=== PATIENT | male | born 1955 | race Two or more races ===

== ENCOUNTER 2019-03-29 14:14 | Inpatient (IN) | payer OTHER, SELFPAY ==
[2019-03-29] VITALS (10 sets, daily range): BP systolic 115–149; BP diastolic 74–89; PULSE 64–76; RESP 16–18; TEMP 36.8–37.1; O2SAT 96–99; BMI 32.4
--- NOTE | 2019-03-29 14:21 | EKG12_ITS ---
Test Reason : AM Blood Pressure : / mmHG Vent. Rate : 066 BPM Atrial Rate : 066 BPM P-R Int : 180 ms QRS Dur : 080 ms QT Int : 410 ms P-R-T Axes : 023 047 089 degrees QTc Int : 429 ms Normal sinus rhythm T wave abnormality, consider lateral ischemia Abnormal ECG When compared with ECG of 30-MAR-2019 12:21, MANUAL COMPARISON REQUIRED, DATA IS UNCONFIRMED Confirmed by JONI MARIE, KAY ([id number]), editor map DENNY ROACH ([id number]) on 04/01/2019 2:12:36 PM Referred By: Shaneka Amin Confirmed By:KAY QUINONES MD
--- NOTE | 2019-03-29 14:59 | EKG12_ITS ---
Test Reason : Blood Pressure : / mmHG Vent. Rate : 061 BPM Atrial Rate : 061 BPM P-R Int : 186 ms QRS Dur : 082 ms QT Int : 418 ms P-R-T Axes : 059 054 094 degrees QTc Int : 420 ms Normal sinus rhythm Septal infarct , age undetermined T wave abnormality, consider lateral ischemia Abnormal ECG When compared with ECG of 30-MAR-2019 04:43, MANUAL COMPARISON REQUIRED, DATA IS UNCONFIRMED Confirmed by JONI MARIE, KAY ([id number]), scientific publications editor DENNY ROACH ([id number]) on 04/01/2019 2:13:28 PM Referred By: Shaneka Amin Confirmed By:KAY QUINONES MD
--- NOTE | 2019-03-29 15:26 | PCM.HP.STD ---
Problem List (1) HTN (hypertension) Status: Chronic (2) Abnormal EKG Status: Acute (3) Obesity (BMI 30.0-34.9) Status: Chronic (4) Diverticulosis Status: Chronic (5) Hypercalcemia Status: Acute (6) NSTEMI (non-ST elevated myocardial infarction) Status: Acute History of Present Illness Date of Admission: 03/29/19 Chief Complaint: chest pain brought on by exertion and relieved with rest The patient is a 63 year old M with a past medical history of hypertension, diverticulosis, borderline hyperlipidemia in the remote past and GERD who presented to the ED in [place] c/o 3 days of intermittent substernal CP that is brought on with exertion and usually relieved with rest. Last night he had CP while lying in bed and had to get up and go to the living room and sit in the recliner. It felt better after he got up and sat in the chair. This morning when he got up he had indigestion and still had chest discomfort. With exertion it was a 7 and currently at rest it waxes and wanes between 1 or 2 to 4. He gets indigestion a lot and has been taking up to 5-8 TUMS a day which he tells me relieves the pain. 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 He has been doing a lot of yard work including raking stones and mowing and pruning trees. Raking and mowing brings on the CP. He denies any radiation of the pain and also denies SOB or diaphoresis with the pain. Denies N/V but, had indigestion this AM. EKG in the ED at [place] showed NSR with possible hyperacute T waves in the septal and lateral leads. The troponin was elevated at 0.185. a D Dimer was elevated and he was told that it was normal. We do not have a printed report. Calcium was elevated at 11 and there was no albumin done. The BUN was 26 and the creat was 1.06. He received 1 dose of SL NTG and it gave him a GUPTA and then the CP got worse. He was transported to [facility] for NSTEMI and to be seen by cardiology. A repeat EKG showed mild ST elevation in I and AVLwith persistent peaked T waves in V leads. He describes his pain as a 2-3 at present. He was admitted to a monitored bed on PCU and consult was ordered with Dr. Henry. Past Medical History Past Medical History (Chronic Problems): Chronic Problems HTN (hypertension) (Chronic) Obesity (BMI 30.0-34.9) (Chronic) Diverticulosis (Chronic) Home Medications: Ambulatory Orders Medication Instructions Recorded Losartan Potassium 50 mg PO 03/29/19 Surgical History: - - surgery on his left ear when he was a child Psychiatric History: No pertinent psych hx Lives: Spouse/ Significant Other Smoking Status: Never smoker Tobacco Use: Non-smoker Alcohol: Occasional Drugs: None - *Family History Maternal History Items: Cancer - breast CA Paternal History Items: Cancer - prostate in his father, - - valvular heart disease, clots in his heart and clots that went to his legs Sibling History Items: - - he is an only child Review of Systems Constitutional: Denies: Chills, Fever, Weight Change HEENT: Reports: Head Aches - only after NTG at the ED. Denies: Sinus Congestion, Sinus Drainage Cardiovascular: Reports: Chest Pain, Chest Pressure. Denies: Claudication, Edema, Light Headedness, Orthopnea, Palpitations, Syncope Respiratory: Reports: Shortness of breath upon exertion. Denies: Cough, Hemoptysis, Pleuritic Pain, Sputum production, Wheezing Gastrointestinal: Reports: Nausea, - - frequent indigestion. Denies: Abdominal Pain, Vomiting Genitourinary: Reports: Hesitancy. Denies: Dysuria, Nocturia, Retention Musculoskeletal: Denies: Joint Pain, Joint Tenderness Skin: Denies: Rash, Wounds Neurological: Denies: Focal weakness, Numbness, Tingling, Seizures Psychiatric: Denies: Anxiety, Depression, Homicidal Ideations, Suicidal Ideations Hematologic/ Lymphatic: Denies: Easy Bruising, Easy Bleeding, Hx of blood clot VTE Information - Inpt Only VTE Present on Admission: No VTE Mechan Device Prophylaxis: SCD's, Knee High MALCOLM Hose VTE Pharm Prophylaxis ordered?: Yes Patient Problems: Active and Suspected Problems Abnormal EKG (Acute) Hypercalcemia (Acute) NSTEMI (non-ST elevated myocardial infarction) (Acute) - Physical Exam General: Alert, Oriented x3, Cooperative, No apparent distress, Well developed, Well nourished HEENT: Atraumatic, PERRLA, EOMI, Normocephalic Oral: No Gingival or Mucosal Lesions/ Ulcerations, Dry Mucosa Neck: Supple, No JVD, Negative Carotid Bruits, No Nodes, No Nuchal Rigidity, Trachea Midline Lungs: Clear to auscultation, Normal air movement, No rhonchi, No wheeze, No rales Cardiovascular: Regular rate, Regular Rhythm, Normal S1, Normal S2, No murmurs, No rub noted, No Gallop Abdomen: Bowel Sounds Present, Soft, Non Tender, Non-Distended Extremities: No clubbing, No cyanosis, No edema, Capillary Refill Less than 3 Seconds, No Calf Tenderness, Peripheral Pulses Normal Skin: No rashes, No breakdown Musculoskeletal: No Tenderness to Palpation of Joints or Extremities Neurological: Cranial nerves II-XII grossly intact, Neuro grossly intact Psych/Mental Status: Normal Affect, Appropriate Vital Signs Temp Pulse Resp BP Pulse Ox 98.3 F 65 18 149/83 H 97 03/29/19 14:28 03/29/19 14:56 03/29/19 14:28 03/29/19 14:28 03/29/19 14:28 Oxygen Delivery Method Room Air Weight: 177 lb 4.026 oz Body Mass Index (BMI) 32.4 Assessment/Plan All Active Problems Abnormal EKG (Acute) Hypercalcemia (Acute) NSTEMI (non-ST elevated myocardial infarction) (Acute) Impressions 1. NSTEMI 2. HTN 3. diverticulosis 4. frequent indigestion/GERD - takes PRN Prilosec 5. obesity 6. remote hx of borderline high cholesterol Admit to a monitored bed on PCU ASA 81 mg PO daily SL NTG 0.4 mg PRN chest pain Serial Cardiac Enzymes repeat EKG now Stat EKG PRN CP DVT prophylaxis ordered Brilinta 180 mg loading Start a beta samantha Lipitor 80 mg Q HS continue the losartan Consult Dr. Henry - discussed with him Lipid panel in the AM Code Visit Inpatient E&M: 34969 Init Hosp L3
[2019-03-29 16:01] LABS: Magnesium 2.1 mg/dL (1.6-2.6)
[2019-03-29 16:13] LABS: AST(SGOT) 32 U/L (15-37); Alanine Aminotransfer ALT/SGPT 42 U/L (16-61); Albumin, Serum 4.5 g/dL (3.2-5.0); Alkaline Phosphatase 72 U/L (45-117); Globulin 3.2 g/dL (2.2-4.2); Protein, Total 7.7 g/dL (6.4-8.2)
[2019-03-29 16:22] LABS: International Normalized Ratio 1.1; Partial Thromboplast Time 34.2 Seconds (24.1-36.2); Prothrombin Time (Protime)PT. 13.5 SECONDS (11.7-14.9)
[2019-03-29] MEDS: Atorvastatin Calcium 80 MG Tablet PO (17:11)
[2019-03-29] MEDS: 0.9% Normal Saline 1,000 ML 75 ML IV (17:11)
[2019-03-29] MEDS: Pantoprazole Sodium 40 MG Tablet PO ×2 (17:11→21:34)
[2019-03-29] MEDS: Metoprolol Tartrate 25 MG Tablet PO ×2 (17:11→21:34)
[2019-03-29] MEDS: TICAGRELOR 90 MG TABLET 180 MG PO (17:23)
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
[2019-03-29] MEDS: HEPARIN/D5w 25,000 UNITS 25,000 UNITS/250 ML IV.SOLN. 11 UNITS IV (18:00)
[2019-03-29] MEDS: TICAGRELOR 90 MG TABLET PO (21:34)
[2019-03-29] MEDS: Morphine 2 MG/ML Syringe IV (23:32)
--- NOTE | 2019-03-29 23:39 | EKG12_ITS ---
Test Reason : Blood Pressure : / mmHG Vent. Rate : 068 BPM Atrial Rate : 068 BPM P-R Int : 178 ms QRS Dur : 082 ms QT Int : 386 ms P-R-T Axes : 039 013 089 degrees QTc Int : 410 ms Normal sinus rhythm Nonspecific T wave abnormality Confirmed by BRAEDEN MARIE, JUAN ([id number]), research editor ROCIO TSANG ([id number] on 04/03/2019 1:11:17 PM Referred By: Shaneka Amin Confirmed By:JUAN DERAS MD
[2019-03-30] VITALS (24 sets, daily range): BP systolic 95–137; BP diastolic 51–81; PULSE 57–86; RESP 14–28; TEMP 36.9–37.1; O2SAT 95–99
[2019-03-30 00:20] LABS: Partial Thromboplast Time 64.8 Seconds (24.1-36.2)
[2019-03-30 05:20] LABS: Cholesterol 170 mg/dL (200); High Density Lipoprotein 46 mg/dL; Triglycerides 114 mg/dL; Very Low Density Lipoprotein 23 mg/dL (5-40)
[2019-03-30] MEDS: 0.9% Normal Saline 1,000 ML 75 ML IV (05:38)
[2019-03-30] MEDS: Morphine 2 MG/ML Syringe IV (05:42)
--- NOTE | 2019-03-30 05:55 | EKG12_ITS ---
Test Reason : AM Blood Pressure : / mmHG Vent. Rate : 063 BPM Atrial Rate : 063 BPM P-R Int : 174 ms QRS Dur : 078 ms QT Int : 390 ms P-R-T Axes : 017 024 075 degrees QTc Int : 399 ms Normal sinus rhythm Nonspecific T wave abnormality Confirmed by BRAEDEN MARIE, JUAN ([id number]), order editor ROCIO TSANG ([id number]) on 04/03/2019 1:10:21 PM Referred By: Shaneka Amin Confirmed By:JUAN DERAS MD
[2019-03-30 06:52] LABS: Partial Thromboplast Time 76.9 Seconds (24.1-36.2)
[2019-03-30] MEDS: Metoprolol Tartrate 25 MG Tablet PO ×2 (09:25→21:18)
[2019-03-30] MEDS: Aspirin E.C. 81 MG Tablet PO (09:25)
[2019-03-30] MEDS: TICAGRELOR 90 MG TABLET PO ×2 (09:26→21:19)
--- NOTE | 2019-03-30 09:37 | PCM.PN.CARD ---
Subjectve: The patient is awake and alert. He has had waxing and waning chest discomfort has radiated towards his epigastric area, left chest, and left scapular area. He has required morphine sulfate. He denies ongoing shortness of breath, nausea, or emesis. There is been no diaphoresis. There is been no near syncope or syncope. Objective: Vital Signs Temp Pulse Resp BP Pulse Ox 98.6 F 72 14 124/73 H 99 03/30/19 08:48 03/30/19 09:25 03/30/19 08:48 03/30/19 08:48 03/30/19 08:48 Oxygen Flow Rate (L/min) 2 Oxygen Delivery Method Nasal Cannula Weight: 177 lb 4.026 oz Body Mass Index (BMI) 32.4 Intake and Output for Last 24 Hours 03/28/19 03/29/19 03/30/19 23:59 23:59 23:59 Intake Total 1360 / 1360 699 / 699 Output Total 200 / 200 Balance 1360 / 1360 499 / 499 General: Awake, Alert, Oriented x 3, Cooperative, No Acute Distress HEENT: Atraumatic, Normocephalic, PERRL, EOMI, Sclera Non Icteric Oral: Moist Mucosa Neck: Supple, Good ROM, No JVD Lungs: Clear to auscultation Cardiovascular: Regular Rhythm, Normal S1, Normal S2 Vascular: No Carotid Bruits Abdomen: Bowel Sounds Present, Soft, Non Tender Extremities: No Cyanosis, No Clubbing, No edema Neurological: No Focal Motor or Sensory Deficit Psych/Mental Status: Appropriate 03/29/19 15:15: PT 13.5, INR 1.1, APTT 34.2 03/29/19 15:15: Total Bilirubin 0.50, Direct Bilirubin 0.10 03/29/19 15:15: Magnesium 2.1 03/29/19 15:15: Troponin I 0.392 H 03/29/19 19:33: Troponin I 3.600 H* 03/29/19 22:10: Troponin I 5.970 H* 03/29/19 23:54: APTT 64.8 H 03/30/19 01:27: Troponin I 8.680 H* 03/30/19 04:22: Triglycerides 114, Cholesterol 170, LDL Cholesterol 101, VLDL Cholesterol 23, HDL Cholesterol 46 03/30/19 04:22: Troponin I 11.400 H* 03/30/19 06:00: APTT 76.9 H 03/30/19 07:20: Troponin I 14.500 H* Rhythm: Sinus rhythm: PVCs EKG: Sinus rhythm; T wave [id number] Medical Necessity - Tobacco Use Smoking Status: Never smoker Tobacco Use: Non-smoker Assessment/Plan 1. Non-ST segment elevation NH The patient has chest discomfort. The concern based upon his cardiac enzyme changes and ECG changes as this may be related to underlying CAD and a subsequent non-ST segment elevation NH as he has not been felt to meet criteria for a STEMI. The patient has had symptoms which have been somewhat positional. This would raise a question of underlying pericarditis. However the current time the patient does not appear to have a classic recent clinical event that may proceed acute pericarditis. He also does not appear to have obvious findings on examination such as a pericardial rub. The patient has been evaluated at his local emergency department for concerns of thromboembolic disease with a chest CT scan. He stated it was reported as negative as he was not started on additional medical management at that time. The patient has been monitored. He has waxing and waning chest discomfort. He is required additional medical management with morphine sulfate. His troponin I levels have trended up. His previous ST segment changes appear to have returned towards baseline however he has developed T wave inversion in lead aVL. At the present time the patient will continue medical therapy. Based upon his ongoing clinical scenario he will proceed with diagnostic cardiac catheterization. The procedure risk were discussed with him and he is agreeable to this approach. 2. Hypertension The patient states he has been diagnosed with hypertension. He notes he has been on antihypertensive therapy. He believes his blood pressure has been under good control. 3. Diverticulosis The patient states he has had a history of diverticulosis and diverticulitis. He has been treated medically in the past. He states he was told at one point time he may need a surgical procedure. However he has postponed that indefinitely. Comment: The above has been discussed and reviewed with Dr. Amin. This note was generated with [employer] software. It may contain incorrect words, spelling, and punctuation that were not noted in checking the note before signing.
--- NOTE | 2019-03-30 11:51 | CASEMGMT ---
Insurance Review for In-Network facilities for MMO insurance if transfer is recommended: [facility], [facility], [facility], [facility]. For further questions, contact CM. Naun FLORESN RN CM
--- NOTE | 2019-03-30 12:16 | EKG12_ITS ---
Test Reason : Blood Pressure : / mmHG Vent. Rate : 062 BPM Atrial Rate : 062 BPM P-R Int : 144 ms QRS Dur : 082 ms QT Int : 376 ms P-R-T Axes : 018 004 052 degrees QTc Int : 381 ms Normal sinus rhythm Nonspecific ST segment abnormality Confirmed by BRAEDEN MARIE, JUAN ([id number]), market editor ROCIO TSANG ([id number]) on 04/03/2019 1:12:25 PM Referred By: Shaneka Amin Confirmed By:JUAN DERAS MD
--- NOTE | 2019-03-30 12:16 | CL.I_ITS ---
Patient Name: EDE DE LUNA Study Date: 03/30/2019 Performing: Shemar Griffith MD Ht: 62 inches 157 cm : 1955 Wt: 176.6 lbs 80 kg Age: 63 Gender: male BSA: 1.81 PROCEDURE(S) PERFORMED OF24-TCH W OR WO PTCA, SINGLE CORONARY ARTERY CLINICAL PROFILE AND CO-MORBIDITIES Patient presents with NSTEMI for urgent cardiac cath Indications: Worsening Angina, Suspected CAD, ACS > 24 hrs, Worsening Angina, Suspected CAD Heart Failure: None Stress/Imaging Stress/Image Study Performed: No Stress/Image Study Performed: No Angina Classification Anginal Classification w/in 2 Weeks: CCS IV CAD Presentations: Non-STEMI. Non-STEMI. Symptom onset Date/Time: 03/29/2019 Time Not Available Comorbidities/Risk Factors: Hypertension Dyslipidemia Family History of Premature CAD CONCLUSIONS Successful PTCA/BETTINA proximal DIAG#1 with a 2.25 x 16 Promus Synergy, post dilated proximally with a 2 .5 x 8 NC balloon; 100%-->0%, no dissection. Vessel was quite small. RECOMMENDATIONS Highly recommend quitting all tobacco products Follow up with primary activities counselor Risk factor modification ASA Indefinitley Plavix for at least 12 months Routine post interventional care Refer for Outpatient Cardiac Rehab Manual sheath removal per protocol Follow up with Dr. Henry Stress test in 4-6 weeks to eval proximal LAD. Successful Mynx closure of RFA. DESCRIPTION OF PROCEDURE The patient arrived to the procedure lab. The risks and benefits of the procedure as well as a full d escription of our services here and current unavailability of surgical backup were fully explained to the patient and/or their significant other prior to the catheterization. The Timeout was completed, verifying the correct patient and procedure. The patient's procedural site was prepped and draped in the usual fashion. Local anesthetic was given subcutaneously to right groin region with Lidocaine 2% Using a modified Seldinger technique,arterial access was obtained via the right femoral artery, a 4Fr sheath was inserted Left Coronary Artery selective angiography was performed in multiple views using a 4 Fr. JL5 catheter. Right Coronary Artery selective angiography was then performed in multiple vie ws using a 4 Fr. 3DRC catheter. Left Ventriculography was performed in BAUTISTA projection using a 4 Fr. P igtail catheter. LV to AO pullback pressures were then recorded.The images were reviewed and options discussed. A decision was then made to proceed with an Intervention, IVUS or other adjunc t procedure. Arterial sheath was exchanged for a 6 Fr Sheath. ebu 3.75 Guide catheter was inserted and engaged into the LCA. bmw Guide wire was advanced to the LAD. emerege 2.00 x 8 Balloon catheter was advanced across lesion in the first diagonal, proximal. PTCA balloon inflated at 6 atms for 8 secs. PTCA ball oon inflated at 6 atms for 8 secs. Angiogram performed post balloon dilatation. synergy 2.25 x 12 Victor Hugo g Eluting stent was advanced across the lesion in the first diagonal, proximal. Angiogram performed p re stent deployment. Drug Eluting stent was removed intact, failed to cross lesion synergy 2.25 x 16 Drug Eluting stent was advanced across the lesion in the first diagonal, proximal. Angiogram performe d pre stent deployment. nc emerge 2.5 x 8 Balloon catheter was inserted post stent. Angiogram perform ed post balloon dilatation. Contrast was injected through the sheath and the Right Iliac and Femoral artery were assessed for possible closure device. The arterial sheath was pulled and a Mynx closure device was deployed for hemostasis INTERVENTION INFORMATION LESION SITE: 1st Diagonal (Proximal) Lesion Complexity: High/C, lesion at bifurcation: No, thrombus present: Yes, lesion length: 16 mm, cu lprit lesion: Yes Pre Stenosis: 100 % Pre intervention AG flow: 0 PROCEDURE: Drug Eluting Stent with pre and post dilatation Post Stenosis: 0 % Post intervention AG flow: 3 Lesion Devices: Medtronic 6 Fr EBU3.75 100cm Guide Catheter Wilcox .014 BMW [place] Straight 190cm Chandler Sci EMERGE MR 2.00x08 BALLOON Chandler Sci Synergy MR BETTINA 2.25x12 Chandler Sci Synergy MR BETTINA 2.25x16 Chandler Sci NC EMERGE MR 2.50x08 BALLOON COMPLICATIONS No Complications PROCEDURE MEDICATIONS Versed 1 mg IV Oxygen: 2 L/min via nasal cannula Heparin 6000 unit(s) IV 03/30/2019 11:25:44 Nitro 200 mcg IC 03/30/2019 11:31:50 Nitro 200 mcg IC 03/30/2019 11:31:50 Nitro 200 mcg IC 03/30/2019 11:34:30 SUMMARY OF HEMODYNAMIC DATA Time AIR REST ECG 10:47:42 AO 136/79 (103) SA 10:57:35 LV 120/14, 18 11:05:26 LV 0/0, 8 11:05:33 LV 144/1, 31 11:07:05 LV 144/0, 31 11:07:12 LVp 141/0, 27 11:07:44 AOp 148/77 (107) 11:07:49 RM AIR REST 12:12:15 Signed By Shemar Griffith MD On 04/22/2019 12:37:04 Shemar Griffith MD
[2019-03-30] MEDS: 0.9% Normal Saline 1,000 ML 150 ML IV (13:15)
--- NOTE | 2019-03-30 13:51 | CL.D_ITS ---
Patient Name: EDE DE LUNA Study Date: 03/30/2019 Performing: Tevin Henry MD Ht: 62 inches 157 cm : 1955 Wt: 176.6 lbs 80 kg Age: 63 Gender: male BSA: 1.81 PROCEDURE(S) PERFORMED KW93-VTL/COR/LV AI49-HGV W OR WO PTCA, SINGLE CORONARY ARTERY CLINICAL PROFILE AND INDICATIONS Patient presents with NSTEMI for urgent cardiac cath Indications: Worsening Angina, Suspected CAD, ACS > 24 hrs, Worsening Angina, Suspected CAD Heart Failure: None Stress/Imaging Stress/Image Study Performed: No Stress/Image Study Performed: No Angina Classification Anginal Classification w/in 2 Weeks: CCS IV CAD Presentations: Non-STEMI. Non-STEMI. Symptom onset Date/Time: 03/29/2019 Time Not Available Comorbidities/Risk Factors: Hypertension Dyslipidemia Family History of Premature CAD CONCLUSIONS Elevated Left Ventricular End Diastolic Pressure LV regional wall motion abnormalities with overall preserved LV systolic function LVEF: by LV gram 55 % [place] Multivessel CAD RECOMMENDATIONS Risk factor modification Medical therapy Referred for immediate PCI DESCRIPTION OF PROCEDURE The patient arrived to the procedure lab. The risks and benefits of the procedure as well as a full d escription of our services here and current unavailability of surgical backup were fully explained to the patient and/or their significant other prior to the catheterization. The Timeout was completed, verifying the correct patient and procedure. The patient's procedural site was prepped and draped in the usual fashion. Local anesthetic was given subcutaneously to right groin region with Lidocaine 2%. Using a modified Seldinger technique, arterial access was obtained via the right femoral artery, a 4 Fr sheath was inserted Left Coronary Artery selective angiography was performed in multiple views us ing a 4 Fr. JL5 catheter. Right Coronary Artery selective angiography was then performed in multiple views using a 4 Fr. 3DRC catheter. Left Ventriculography was performed in BAUTISTA projection using a 4 Fr . Pigtail catheter. LV to AO pullback pressures were then recorded.Contrast was injected through the sheath and the Right Iliac and Femoral artery were assessed for possible closure device.T he arterial sheath was pulled and a Mynx closure device was deployed for hemostasis CORONARY ANGIOGRAPHY DOMINANCE: Co- Dominant LEFT HEART ASSESSMENT Left Ventricular Ejection Fraction: by Echo 55 % Anterior Hypokinesis Elevated Left Ventricular End Diastolic Pressure LVEDP: 31 mmHg LEFT MAIN: Angiographically normal LEFT ANTERIOR DESCENDING ARTERY: PROX LAD: 25 - 50 % Stenosis DIAGONAL 1: Proximal - is occluded DIAGONAL 2: Proximal - Small vessel: 25 % Stenosis CIRCUMFLEX ARTERY: Mild luminal irregularities RIGHT CORONARY ARTERY: Angiographically normal Angiographically normal VALVE FINDINGS: Normal Aortic Valve function Normal Mitral Valve function AORTIC ROOT: Angiographically normal COMPLICATIONS No Complications PROCEDURE MEDICATIONS Versed 1 mg IV Oxygen: 2 L/min via nasal cannula Heparin 6000 unit(s) IV 03/30/2019 11:25:44 Nitro 200 mcg IC 03/30/2019 11:31:50 Nitro 200 mcg IC 03/30/2019 11:31:50 Nitro 200 mcg IC 03/30/2019 11:34:30 SUMMARY OF HEMODYNAMIC DATA Time AIR REST ECG 10:47:42 AO 136/79 (103) SA 10:57:35 LV 120/14, 18 11:05:26 LV 0/0, 8 11:05:33 LV 144/1, 31 11:07:05 LV 144/0, 31 11:07:12 LVp 141/0, 27 11:07:44 AOp 148/77 (107) 11:07:49 RM AIR REST 12:12:15 Signed By Tevin Henry MD On 03/30/2019 13:51:11 Tevin Henry MD
[2019-03-30] MEDS: Pantoprazole Sodium 40 MG Tablet PO ×2 (14:05→22:10)
--- NOTE | 2019-03-30 14:56 | PCM.PROGNOTE ---
Patient Problems: Active and Suspected Problems Abnormal EKG (Acute) Hypercalcemia (Acute) NSTEMI (non-ST elevated myocardial infarction) (Acute) Subjective: 63-year-old male with hypertension who presented to [place] emergency department complaining of chest pain. Troponin was elevated and he was transferred [facility]. EKG showed subtle changes in the lateral and inferior leads. Troponin at [facility] sheryl to 14.5 in AM 03/30. 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 Cardiac catheterization today showed a left ventricular ejection fraction of 55% with an elevated and left ventricular diastolic pressure 31. The left main was angiographically normal. The proximal LAD had a 25 to 50% stenosis. Diagonal #1 was completely occluded and the proximal diagonal #2 had a 25% of stenosis. The RCA was angiographically normal and the circumflex artery had mild luminal irregularities. Patient was referred for intervention and had successful PTCA/BETTINA to the proximal diagonal #1 and occlusion went from 100% to 0% postprocedure. He was transferred to the coronary intensive care unit postprocedure. Currently he denies any chest pain and also denies shortness of breath. His only complaint is that he is hungry. Blood pressure is well controlled. Pulse ox is 98 to 99% on room air. Labs today showed an elevated troponin at 14.5. Cholesterol was 170 with an LDL of 101 and HDL of 46. - Physical Exam General: Alert, Cooperative, No apparent distress Lungs: Clear to auscultation, Normal air movement Cardiovascular: Regular rate, Regular Rhythm, Normal S1, Normal S2, No murmurs, No rub noted, No Gallop Abdomen: Bowel Sounds Present, Soft, Non Tender, Non-Distended Extremities: Peripheral Pulses Normal, - - Right groin site is dry with no hematoma and no bruit. Intact sensation to the right foot and dorsalis pedis pulses 3/3. Neurological: Cranial nerves II-XII grossly intact, Neuro grossly intact Psych/Mental Status: Normal Affect, Appropriate Vital Signs Temp Pulse Resp BP Pulse Ox 98.4 F 74 18 117/54 L 99 03/30/19 12:15 03/30/19 14:00 03/30/19 14:00 03/30/19 14:00 03/30/19 14:00 Oxygen Flow Rate (L/min) 2 Oxygen Delivery Method Room Air Weight: 177 lb 4.026 oz Body Mass Index (BMI) 32.4 Intake and Output for Last 24 Hours 03/28/19 03/29/19 03/30/19 23:59 23:59 23:59 Intake Total 1360 / 1360 949 / 949 Output Total 200 / 200 Balance 1360 / 1360 749 / 749 Laboratory Tests Past 24 Hrs 03/29/19 03/29/19 03/29/19 15:15 15:15 15:15 PT 13.5 INR 1.1 APTT 34.2 Magnesium 2.1 Total Bilirubin 0.50 Direct Bilirubin 0.10 AST 32 ALT 42 Alkaline Phosphatase 72 Troponin I Total Protein 7.7 Albumin 4.5 Globulin 3.2 Triglycerides Cholesterol LDL Cholesterol VLDL Cholesterol HDL Cholesterol PTH Intact 03/29/19 03/29/19 03/29/19 15:15 15:15 19:33 PT INR APTT Magnesium Total Bilirubin Direct Bilirubin AST ALT Alkaline Phosphatase Troponin I 0.392 H 3.600 H* Total Protein Albumin Globulin Triglycerides Cholesterol LDL Cholesterol VLDL Cholesterol HDL Cholesterol PTH Intact Pending 03/29/19 03/29/19 03/30/19 22:10 23:54 01:27 PT INR APTT 64.8 H Magnesium Total Bilirubin Direct Bilirubin AST ALT Alkaline Phosphatase Troponin I 5.970 H* 8.680 H* Total Protein Albumin Globulin Triglycerides Cholesterol LDL Cholesterol VLDL Cholesterol HDL Cholesterol PTH Intact 03/30/19 03/30/19 03/30/19 04:22 04:22 06:00 PT INR APTT 76.9 H Magnesium Total Bilirubin Direct Bilirubin AST ALT Alkaline Phosphatase Troponin I 11.400 H* Total Protein Albumin Globulin Triglycerides 114 Cholesterol 170 LDL Cholesterol 101 VLDL Cholesterol 23 HDL Cholesterol 46 PTH Intact 03/30/19 07:20 PT INR APTT Magnesium Total Bilirubin Direct Bilirubin AST ALT Alkaline Phosphatase Troponin I 14.500 H* Total Protein Albumin Globulin Triglycerides Cholesterol LDL Cholesterol VLDL Cholesterol HDL Cholesterol PTH Intact Medical Necessity - Tobacco Use Smoking Status: Never smoker Tobacco Use: Non-smoker Assessment/Plan All Active Problems Abnormal EKG (Acute) Hypercalcemia (Acute) NSTEMI (non-ST elevated myocardial infarction) (Acute) Impressions 1. NSTEMI 2. HTN 3. diverticulosis 4. frequent indigestion/GERD - takes PRN Prilosec 5. obesity 6. remote hx of borderline high cholesterol. LDL is 101 and he was started on a high intensity statin at admission 7. Multivessel coronary artery disease with a complete occlusion of the proximal diagonal #1. 8. Status post successful PTCA/BETTINA to the proximal diagonal #1 Transferred to cardiac intensive care unit Continue aspirin and Brilinta-we will need at least 12 months of dual antiplatelet therapy and then lifelong aspirin Continue beta-samantha, high intensity statin, ARB, aspirin and Brilinta Continue Protonix twice daily for GERD Recheck lab in the a.m. Echo in the a.m. Cardiac rehab Code Visit Inpatient E&M: 31666 Subs Hosp L2
[2019-03-30 15:35] LABS: ACT Activated Clotting Time 208 sec (74-137)
[2019-03-30 15:35] LABS: ACT Activated Clotting Time 131 sec (74-137)
[2019-03-30] MEDS: Atorvastatin Calcium 80 MG Tablet PO (21:18)
[2019-03-31] VITALS (15 sets, daily range): BP systolic 109–154; BP diastolic 46–83; PULSE 61–85; RESP 14–22; TEMP 36.7–38.1; O2SAT 97–99; BMI 32.3
[2019-03-31 04:23] LABS: Hematocrit 38.4 % (40-54); Hemoglobin 12.6 g/dl (13.0-16.5); Mean Corp Hgb Conc 32.8 g/gl (32-36); Mean Corpuscular Volume 88.5 fL (80-94); Mean Platelet Vol. 9.7 fl (6.2-12.0); Platelet Count 143 K/mm3 (150-450); RBC Distribution Width CV 13.2 % (11.6-14.6); RBC Distribution Width SD 41.8 fl (35.1-43.9); Red Blood Count 4.34 M/mm3 (4.6-6.2); Scan Indicated on CBC? Y/N NO; White Blood Count 9.6 K/mm3 (4.4-11.0)
[2019-03-31 04:33] LABS: Anion Gap 7 (5-15); BUN 21 mg/dL (7-18); BUN/Creat Ratio 23.3 RATIO (10-20); Chloride 108 mmol/L (98-107); EST Glomerular Filtration Rate 90 mL/min (>60); Est Glom Filt Rate - Afr Amer 108 mL/min (>60); Estimated Creatinine Clearance 63.19 ml/min; Glucose 96 mg/dL (74-106); Sodium Level 139 mmol/L (136-145)
[2019-03-31] MEDS: TICAGRELOR 90 MG TABLET PO (07:57)
[2019-03-31] MEDS: Metoprolol Tartrate 25 MG Tablet PO (07:57)
[2019-03-31] MEDS: Pantoprazole Sodium 40 MG Tablet PO (07:57)
[2019-03-31] MEDS: Losartan Potassium 25 MG Tablet PO (07:57)
[2019-03-31] MEDS: Aspirin E.C. 81 MG Tablet PO (07:57)
--- NOTE | 2019-03-31 08:31 | CRPHASE1_ITS ---
Patient Communication PHII Cardiac Rehab Discussed with Patient:: Yes Guide to Cardiac Rehab Given to Patient:: Yes Cardiac Rehab Facility Choice List Given to Patient:: Yes - chooses [facility] Choice Program [facility] CR PHII:: Communication Given to CR, Refer to [facility] Refer Phase II Cardiac Rehab:: Yes Sessions:: 36 sessions - 3 days/wk, 12 weeks Risk Factors/Lifestyle Smoking Status: Never smoker Hx Obesity: Yes Height: 1.57 m Weight:: 80.286 kg BMI: 32.3 Laboratory Values: Cardiac Rehab Phase I Labs Triglycerides 114 mg/dL (-199) 03/30/19 04:22 Cholesterol 170 mg/dL (200) 03/30/19 04:22 101 mg/dL (0-130) 03/30/19 04:22 46 mg/dL (40-) 03/30/19 04:22 Phase I Education Given On:: Donnel[place], Nutrition, Antiplatelet medication, CHF, Smoking cessation, Diabetes - Type I, Diabetes - Type II Knowledge of Condition:: Yes Hospital Course Presenting Symptoms:: CP Cardiac Cath Date:: 03/30/19 Medical/Surgical History Hypertension:: Yes Discharge/Home/Social Eval Discharge Disposition: Home Cardiac Rehabilitation Info Cardiac Rehabilitation Program Information: Cardiac Rehabilitation is important for patients like you who are recovering from a heart problem. Cardiac rehabilitation programs are recognized as integral to the continued care of the patient with coronary heart disease. The cardiac rehabilitation program is designed to optimize a patient's physical, psychological, and social functioning. Health care management coordinator work in cardiac rehabilitation programs and assist you with getting the treatments you need to get stronger and healthier - like exercise, healthy eating habits, and medications. Cardiac rehabilitation has been show to help people with heart problems live longer and have better life enjoyment than people who do not go to cardiac rehabilitation. Please contact the Cardiac Rehabilitation Program at [facility] at in two weeks if you have not heard from them.
--- NOTE | 2019-03-31 08:36 | CRPH1.INSTRU ---
General Education CAD and cardiac anatomy and function:: Patient communicates acknowledgment Explanation of diagnoses and procedures:: Patient communicates acknowledgment Sign/Symptoms of ND:: Patient communicates acknowledgment Antiplatelet therapy: Patient communicates acknowledgment Proper use of NTG-SL: Not instructed Emergency procedures and activation of EMS: Patient communicates acknowledgment Compliance of all prescribed medications: Patient communicates acknowledgment Smoking Patient Nicotine/Smoking Risk Factors Are:: Never smoked Dyslipidemia Dyslipidemia Response Code:: Patient communicates acknowledgment Overweight/Obesity Patient Overweight/Obesity Risk Factors Are:: Obesity - > or = 30 Recommendations Include:: Weight loss of 5-10%, Reduced calorie diet, Exercise 5-7 times/week Overweight/Obesity:: Patient communicates acknowledgment Hypertension Recommendations Include:: Maintain BP <130/85, DASH dietary guidelines, Decrease/maintain normal body weight, Moderation of ETOH Hypertension:: Patient communicates acknowledgment Heart Disease Heart Disease Response Code:: Patient communicates acknowledgment Diabetes Diabetes:: Patient communicates acknowledgment Metabolic Syndrome Metabolic Syndrome Response Code:: Patient communicates acknowledgment Sedentary Sedentary Response Code:: Patient communicates acknowledgment
[2019-03-31 09:50] LABS: PTHIN 14.8 pg/mL (18.4-80.1)
--- NOTE | 2019-03-31 09:59 | CASEMGMT ---
RN CM Assessment Presentation: NSTEMI. PTCA prox diag PTCA Intro role of CM and purpose of RN CM assessment. Demographics, PCP and Pharmacy verified. PCP: Dr. Peres Specialists: Dr. Henry Preferred Pharmacy: [facility] Insurance: MMO Prescription Benefit: yes. Brillinta savings card given to patient and explained. LNOK: , Christine Baldwin Living Arrangements: Lives independently with . No care needs identified Transportation: Drives DME: none HHC: none Patient DC goals: Home DC PLAN: Home on discharge. No needs identified. Trish CLOTH BIN PACKER ACM
--- NOTE | 2019-03-31 10:03 | PCM.PN.CARD ---
Subjectve: The patient is awake and alert. He denies any ongoing chest discomfort. There is been no episodes of shortness of breath or dyspnea. There is been no near syncope or syncope. He has been up and ambulating. Objective: Vital Signs Temp Pulse Resp BP Pulse Ox 98.0 F 78 20 H 150/69 H 99 03/31/19 08:00 03/31/19 08:00 03/31/19 08:00 03/31/19 08:00 03/31/19 08:00 Oxygen Flow Rate (L/min) 2 Oxygen Delivery Method Room Air Weight: 177 lb Body Mass Index (BMI) 32.4 Intake and Output for Last 24 Hours 03/29/19 03/30/19 03/31/19 23:59 23:59 23:59 Intake Total 1360 / 1360 3179 / 3179 Output Total 200 / 200 Balance 1360 / 1360 2979 / 2979 General: Awake, Alert, Oriented x 3, Cooperative, No Acute Distress HEENT: Atraumatic, Normocephalic, PERRL, EOMI, Sclera Non Icteric Oral: Moist Mucosa Neck: Supple, Good ROM, No JVD Lungs: Clear to auscultation Cardiovascular: Regular Rhythm, Normal S1, Normal S2 Vascular: No Carotid Bruits, Normal Femoral Pulses Abdomen: Bowel Sounds Present, Soft, Non Tender Extremities: No Cyanosis, No Clubbing, No edema Neurological: No Focal Motor or Sensory Deficit Psych/Mental Status: Appropriate 03/31/19 04:10: WBC 9.6, RBC 4.34 L, Hgb 12.6 L, Hct 38.4 L, MCV 88.5, MCH 29.0, MCHC 32.8, RDW 13.2, RDW Differential 41.8, Plt Count 143 L, MPV 9.7 03/31/19 04:10: Sodium 139, Potassium 4.0, Chloride 108 H, Carbon Dioxide 24.0, Anion Gap 7, BUN 21 H, Creatinine 0.90, Est GFR (MDRD) Af Amer 108, Est GFR (MDRD) Non-Af 90, BUN/Creatinine Ratio 23.3 H, Glucose 96, Calcium 8.0 L Rhythm: Sinus rhythm EKG: Sinus rhythm; T wave abnormality compatible with myocardial ischemia at these high/lateral) Medical Necessity - Tobacco Use Smoking Status: Never smoker Tobacco Use: Non-smoker Assessment/Plan 1. Non-ST segment elevation MS The patient is now status post further evaluation with diagnostic cardiac catheterization. The patient did require PCI of his high diagonal branch. The present time he appears to be resting comfortably with no ongoing symptoms or hemodynamic compromise. He will continue medical management. He will continue with outpatient follow-up and outpatient cardiac rehabilitation. 2. Hypertension The patient states he has been diagnosed with hypertension. He notes he has been on antihypertensive therapy. He believes his blood pressure has been under good control. 3. Diverticulosis The patient states he has had a history of diverticulosis and diverticulitis. He has been treated medically in the past. He states he was told at one point time he may need a surgical procedure. However he has postponed that indefinitely. Overall, the present time, the patient appears to be symptomatically hemodynamically stable. He will continue medication with adjustment as deemed appropriate. He will be scheduled for future outpatient cardiovascular follow-up and outpatient cardiac rehabilitation. Comment: The above has been discussed and reviewed with the patient. This note was generated with [employer] dictation software. It may contain incorrect words, spelling, and punctuation that were not noted in checking the note before signing.
--- NOTE | 2019-03-31 12:04 | PCM.DC ---
- Discharge Diagnoses Current Active Problems: Current Active and Chronic Problems (Last Updated 03/31/19 @ 08:38 by Lissy Brown) S/P coronary artery stent placement (Chronic ~03/30/19) PTCA/BETTINA to prox Diag #1 03/30/19 Atherosclerotic heart disease of [place] coronary artery without angina pectoris (Chronic) HTN (hypertension) (Chronic) Abnormal EKG (Acute) Obesity (BMI 30.0-34.9) (Chronic) Diverticulosis (Chronic) Hypercalcemia (Acute) NSTEMI (non-ST elevated myocardial infarction) (Acute) You will use the following diet at home:: Cardiac Your food should be the consistency of: Regular Return to work on:: 04/07/19 Call your doctor if you observe: Fever of 101 or Higher, Shortness of breath, Chest pain Allergies/Adverse Reactions: Allergies No Known Allergies Allergy (Verified 03/29/19 15:34) Medications to take at Discharge Aspirin E.C. [Ecotrin] 81 mg PO DAILY@0800 tab 03/31/19 Atorvastatin Calcium [Lipitor] 80 mg PO QHS #30 tab 03/31/19 Losartan Potassium [Cozaar] 25 mg PO DAILY #30 tab 03/31/19 Metoprolol Tartrate [Lopressor (beta samantha)] 50 mg PO BID #60 tab 03/31/19 Ticagrelor [Brilinta] 90 mg PO BID #60 tab 03/31/19 The following prescriptions were given: Ticagrelor [Brilinta] 90 mg PO BID #60 tab Transmission Status: Pending to [facility] Losartan Potassium [Cozaar] 25 mg PO DAILY #30 tab Transmission Status: Pending to [facility] Atorvastatin Calcium [Lipitor] 80 mg PO QHS #30 tab Transmission Status: Pending to [facility] Metoprolol Tartrate [Lopressor (beta samantha)] 50 mg PO BID #60 tab Transmission Status: Pending to [facility] Orders to be completed after discharge: Phase II, Outpatient Cardiac Rehab Location: None Selected Primary Care Physician: Álvaro Peres DO [Primary Care Provider] - Within 2 Weeks Test Results: Test results from this visit will be discussed in further detail at your follow-up appointment, if applicable. Please Follow Up With: Sanjay Lowry NP-C When: 04/23/19 Proposed Discharge Date: 03/31/19
--- NOTE | 2019-03-31 12:05 | DS.PCM_ITS ---
Discharge Date and Diagnosis - Problem List Patient Problems: Active and Suspected Problems (Last Updated 03/31/19 @ 08:38 by Lissy Brown) Abnormal EKG (Acute) Hypercalcemia (Acute) NSTEMI (non-ST elevated myocardial infarction) (Acute) Date of Admission: 03/29/19 Date of Discharge: 03/31/19 - Primary Discharge Diagnosis Active and Suspected Problems (Last Updated 03/31/19 @ 08:38 by Lissy Brown) Abnormal EKG (Acute) Hypercalcemia (Acute) NSTEMI (non-ST elevated myocardial infarction) (Acute) - Secondary Discharge Diagnosis Chronic Problems (Last Updated 03/31/19 @ 08:38 by Lissy Brown) S/P coronary artery stent placement (Chronic ~03/30/19) PTCA/BETTINA to prox Diag #1 03/30/19 Atherosclerotic heart disease of [place] coronary artery without angina pectoris (Chronic) HTN (hypertension) (Chronic) Obesity (BMI 30.0-34.9) (Chronic) Diverticulosis (Chronic) Hospital Course and Treatment Operations: None Procedures: Cardiac catheterization Summary of Care Provided: The patient is a 63 year old M who presents with chest pain with exertion. Patient had troponin elevation that went up to 14.5. Patient underwent a left heart catheterization on the seventh and received a drug-eluting stent to the diagonal artery. Afterwards, the patient has been doing fine. Cardiology is recommended patient be off of work for at least 1 week. Further prolongation of remaining off work will be determined by cardiology. Patient will be discharged with aspirin, Brilinta, atorvastatin, metoprolol and his losartan dose will be decreased from 50-25 daily. [] Patient Problems: Active and Suspected Problems (Last Updated 03/31/19 @ 08:38 by Lissy Brown) Abnormal EKG (Acute) Hypercalcemia (Acute) NSTEMI (non-ST elevated myocardial infarction) (Acute) - Physical Exam General: Alert, No apparent distress HEENT: Atraumatic, Normocephalic Neck: No Nodes, Thyroid Normal Size and Texture Lungs: Clear to auscultation, Normal air movement, No rhonchi, No wheeze, No rales Cardiovascular: Regular rate, Regular Rhythm, Normal S1, Normal S2, No murmurs Abdomen: Bowel Sounds Present, Soft, Non Tender, Non-Distended, No Hepato- splenomegaly Extremities: No edema, No Calf Tenderness Psych/Mental Status: Normal Affect, Appropriate Vital Signs Temp Pulse Resp BP Pulse Ox 36.7 C 76 18 154/83 H 98 03/31/19 08:00 03/31/19 10:00 03/31/19 10:00 03/31/19 10:00 03/31/19 10:00 Oxygen Flow Rate (L/min) 2 Oxygen Delivery Method Room Air Weight: 80.286 kg Body Mass Index (BMI) 32.4 Intake and Output for Last 24 Hours 03/29/19 03/30/19 03/31/19 23:59 23:59 23:59 Intake Total 1360 / 1360 3179 / 3179 Output Total 200 / 200 Balance 1360 / 1360 2979 / 2979 Laboratory Tests Past 24 Hrs 03/29/19 03/30/19 03/30/19 15:15 11:22 11:48 WBC RBC Hgb Hct MCV MCH MCHC RDW RDW Differential Plt Count MPV Activated Clotting Time 131 208 H Sodium Potassium Chloride Carbon Dioxide Anion Gap BUN Creatinine Estim Creat Clear Calc Est GFR (MDRD) Af Amer Est GFR (MDRD) Non-Af BUN/Creatinine Ratio Glucose Calcium PTH Intact 14.8 L 03/31/19 03/31/19 04:10 04:10 WBC 9.6 RBC 4.34 L Hgb 12.6 L Hct 38.4 L MCV 88.5 MCH 29.0 MCHC 32.8 RDW 13.2 RDW Differential 41.8 Plt Count 143 L MPV 9.7 Activated Clotting Time Sodium 139 Potassium 4.0 Chloride 108 H Carbon Dioxide 24.0 Anion Gap 7 BUN 21 H Creatinine 0.90 Estim Creat Clear Calc 63.19 Est GFR (MDRD) Af Amer 108 Est GFR (MDRD) Non-Af 90 BUN/Creatinine Ratio 23.3 H Glucose 96 Calcium 8.0 L PTH Intact Discharge Diet: Low fat/ Low Cholesterol Discharge Activity: Return to Normal Activity Return to work on:: 04/07/19 Call your doctor if you observe: Fever of 101 or Higher, Shortness of breath, Chest pain Home Medications: Medications to take at Discharge Aspirin E.C. [Ecotrin] 81 mg PO DAILY@0800 tab 03/31/19 Atorvastatin Calcium [Lipitor] 80 mg PO QHS #30 tab 03/31/19 Losartan Potassium [Cozaar] 25 mg PO DAILY #30 tab 03/31/19 Metoprolol Tartrate [Lopressor (beta gage)] 50 mg PO BID #60 tab 03/31/19 Ticagrelor [Brilinta] 90 mg PO BID #60 tab 03/31/19 Following Prescrptions Were Given to Patient: Ticagrelor [Brilinta] 90 mg PO BID #60 tab [facility] Losartan Potassium [Cozaar] 25 mg PO DAILY #30 tab Transmission Status[facility] Atorvastatin Calcium [Lipitor] 80 mg PO QHS #30 tab Transmission Status[facility] Metoprolol Tartrate [Lopressor (beta gage)] 50 mg PO BID #60 tab [facility]: [facility] Other Amb Orders: Phase II, Outpatient Cardiac Rehab Location: None Selected Primary Care Physician: Álvaro Peres DO [Primary Care Provider] - Within 2 Weeks Please Follow Up With: Sanjay Lowry KILN CHARGER-C When: 04/23/19 Disposition: Home Minutes spent on discharge:: 32 Patient Condition:: Good Medical Necessity - Tobacco Use Smoking Status: Never smoker Tobacco Use: Non-smoker Meaningful Use Info Meaningful Use Diagnoses (Choose all that apply): AMI - AMI Aspirin given w/in 24hrs of arrival?: Yes ASA at discharge?: Yes Statins at discharge?: Yes Omari/ARB at discharge?: Yes Beta Gage at discharge?: Yes Done w/ Acute VT measure.: Yes Documented LVEF (%): 55 Code Visit Inpatient E&M: 25942 Disch Hosp
--- NOTE | 2019-03-31 12:16 | EKG12_ITS ---
Test Reason : Blood Pressure : / mmHG Vent. Rate : 068 BPM Atrial Rate : 068 BPM P-R Int : 136 ms QRS Dur : 078 ms QT Int : 378 ms P-R-T Axes : 037 016 048 degrees QTc Int : 401 ms Normal sinus rhythm Nonspecific ST segment abnormality Confirmed by BRAEDEN MARIE, JUAN ([id number]), supervising editor news reel ROCIO TSANG ([id number]) on 04/03/2019 1:12:50 PM Referred By: Shaneka Amin Confirmed By:JUAN DERAS MD
== END 2019-03-31 12:56 | disposition home or self-care (01) | DRG 247 ==
LOC: PCU 15:12 → ICU 03-30 12:05
PROVIDERS: Internal Medicine Cardiovascular Disease; Admitting Provider Internal Medicine; Family Provider Family Medicine; PCP Family Medicine; Referring Provider Internal Medicine
DX: I21.4 Non-ST elevation (NSTEMI) myocardial infarction (principal); E66.9 Obesity, unspecified; Z68.32 Body mass index [BMI] 32.0-32.9, adult; K57.90 Diverticulosis of intestine, part unspecified, without perforation or abscess without bleeding; K21.9 Gastro-esophageal reflux disease without esophagitis; I10 Essential (primary) hypertension; I25.10 Atherosclerotic heart disease of native coronary artery without angina pectoris; E83.52 Hypercalcemia
CPT/HCPCS: 36415; 80048; 80061; 80076; 83735; 83970; 84484; 85027; 85347; 85610; 85730; 92928; 93005; 93458; 99152; 99153; 99406; C1760; J7030; J7040; C1725; C1769; C1874; C1887; C1894; C9600; Q9967

== ENCOUNTER → 2019-04-15 | Outpatient (CLI) | payer OTHER, SELFPAY ==
[2019-03-29 14:18] VITALS: BMI 32.4
--- NOTE | 2019-04-15 09:54 | CR.HP_ITS ---
CR - History & Physical - General Arrival date:: 04/15/19 Arrival time:: 09:00 Date of Referral:: 03/30/19 Date of CR Evaluation:: 04/15/19 Referring Physician: DR. JUAN DERAS Primary Diagnosis: NSTMEI, PTCA, PCI W/CORONARY STENT - History of Present Cardiac Event Onset Date: Enter Onset Date of cardiac illnesses in Comment field below Acute Myocardial Infarction within 12 months:: Yes - NON-STEMI 03/30/2019 PTCA or coronary stenting:: Yes - 03/30/2019 Type of Symptoms:: DONING ALOT OF HOME WORK AROUND HOME DURING VACATION, STARTED WITH CHEST PAIN WOULD STOP AND REST, THROUGHOUT THE WEEK AND WITH CHORES THE CHEST PAIN BECAME MORE PREVELANT AND FREQUENT. Interventions with present event:: ADMITTED OVERNIGHT AND TAKENT O SUSPENDER MAKER THE NEXT MORNING. TROPONINS KEPT R Were there any complications?: NONE - Medications Home Medications: Ambulatory Orders Medication Instructions Recorded Aspirin E.C. [Ecotrin] 81 mg PO DAILY@0800 tab 03/31/19 Atorvastatin Calcium [Lipitor] 80 mg PO QHS #30 tab 03/31/19 Losartan Potassium [Cozaar] 25 mg PO DAILY #30 tab 03/31/19 Metoprolol Tartrate [Lopressor 50 mg PO BID #60 tab 03/31/19 (beta samantha)] Ticagrelor [Brilinta] 90 mg PO BID #60 tab 03/31/19 - Allergies Allergies/Adverse Reactions: Allergies No Known Allergies Allergy (Verified 03/29/19 15:34) - Sleep Disorder Evaluation Hx of Sleep Apnea: No Do you snore loudly (louder than talking or can be heard through closed doors)?: Yes Do you often feel tired/ fatigued/ sleepy during daytime?: No - GETTING BETTER, BUT THE FIRST WEEK WAS REALLY TOUGH. Has anyone observed you stop breathing during sleep?: Yes - SUDDENLY WAKES UP THOUGH THE NIGHT; WAKE UP OUT OF SLEEP SHORT OF BREATH History of Hypertension (for STOP score): Yes - START ON BLOOP PRESSURE MEDICATIONS LAST FALL(2017). STOP Results: Positive Advanced Directives - Advanced Directives Power of Gun Barrel Finisher: Yes - (CARMEN) IS POA FOR HEALTHCARE Living Will: Yes Advance Directives Information Provided: No Advance Directives on File: No DNR Order?:: No - MOLST See MOLST form: No Past Medical History - Past Medical Illness Medical History: Past Medical History (Last Updated 04/15/19 @ 08:03 by HEIDY Fernandez) Essential (primary) hypertension (Chronic) I10 Atherosclerosis of [place] coronary artery of [place] heart without angina pectoris (Chronic) I25.10 PTCA/BETTINA to prox Diag #1 03/30/19; Obesity (BMI 30.0-34.9) (Chronic) E66.9 Diverticulosis (Chronic) K57.90 Hypercalcemia (Acute) E83.52 NSTEMI (non-ST elevated myocardial infarction) (Acute) I21.4 - Past Surgical History Surgical History: Past Surgical History (Last Updated 04/15/19 @ 08:03 by HEIDY Fernandez) S/P coronary artery stent placement (Chronic) Onset Date: ~03/30/19 Z95.5 PTCA/BETTINA to prox Diag #1 03/30/19; Surgical History: - - surgery on his left ear when he was a child Social History - Smoking History Smoking Status: Never smoker Hx Tobacco Use: No Hx Smoking Exposure: No - 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 Recreational Activities: I am able to engage in most, but not all activities Social Environment - Status Marital Status: - Current Living Arrangements Living Environment:: Spouse - Children How many children do you have?: 2 Do any of your children live nearby?: Yes - [facility] - Safety Do you feel safe in your surroundings?: Yes - Assistance Do you need any assistance at home?: NONE Review of Systems - Review of Systems Hints: Right click = Denies ([place]ash). Left click = Reports ([place]) Review of Present Symptoms: Reports: Shortness of Breath with Exertion, Dizziness/Lightheadedness - ALL IN ALL NO, ON OCCASIONA BENDING OVER AND STANDING UPRIGHT WILL FEEL A LITTLE DIZZINESS., Appetite - Normal, Appetite - Special Diet - DIVERTICULTIS, NO SEEDS, NO NUTS. LOW FAT LOW SODIUM CARDIAC DIET., Sleep - Normal. Denies: Angina, Fatigue, Heart Arrhythmia/Irregularities, Sexual Changes - Pain Is Patient Pain Free?: Yes Pain Location: none, other - PREVIOUS ROTATOR CUFF STRAIN WENT THROUGH PHYSICAL THERAPY FOR IT. Pain Level: 0/10 Risk Factor Assessment - Chief Complaint Chief Complaint: PATIENT PRESENTS TO CARDIAC REHAB TODAY FOLLOWING RECENT HOSPITALIZATION FOR CHEST PAIN, HE WAS NOT TOLD HE HAD A HEART ATTACK, BUT DID GO TO SUSPENDER MAKER FOR CATH PROCEDURE AND HAD A STENT PLACEMENT. - Vital Signs Temperature: 98.7 F Respiratory Rate: 16 Pulse Ox: 96 Blood Pressure: 154/83 Nailbeds:: NORMAL COLOR - Pulse Pulse Rate: 78 Pulse Rhythm: Regular - Hypertension How long have you been treated?: FALL 2017 Blood Pressure Sitting - Right Arm: 154/83 - Blood Cholesterol/Lipids Total Cholesterol (mg/dL) Goal = less than 200 mg/dL: 150 HDL Cholesterol (mg/dL) Goal = less than 40 mg/dL: 46 LDL Cholesterol (mg/dL) Goal = less than 70 mg/dL: 101 Triglycerides (mg/dL) Goal = less than 150 mg/dL: 114 - Diabetes Nutrition Referral for Diabetes: No - Obesity Height: 5 ft 2 in Weight:: 177 lb Weight in Pounds: 177.0 lbs Weight Source: Stated by Patient Body Mass Index (BMI): 32.3 Nutritional Referral for Obesity: Yes - Physical Inactivity Physical Inactivity: Reg Exercise 30 min/day - WALK 3/4 MILE DAILY ABOUT 45 MINUTES, Physically demanding job - Risk Stratification Risk Guidelines: Lowest Risk: Risk Factor for Smoking, Risk Factor for Diabetes, Risk Factor for Sedentary Lifestyle, Risk Factor for Depression, Moderate Risk: Risk Factor for Dyslipidemia, Risk Factor for Hypertension, Highest Risk: Risk Factor for Obesity - For Smoking Smoking Risk Guidelines: Smoking Low Risk: None or quit greater than 6 months ago. Smoking Moderate Risk: Smoker or quit 6 months or less ago. Smoking High Risk: Smoker - For Dyslipidemia Dyslipidemia Risk Guidelines: Low Risk: Moderate Risk: High Risk: 15-25% fat 25.1-29% fat >/= 30% fat. <7% sat fat 7-9% sat fat >9% sat fat. <150 mg chol 150-299 mg chol >/= 300 mg chol. LDL <100 LDL 100-129 LDL >/= 130. Chol/HDL ratio <5.0 Chol/HDL ratio 5.0-6.0 Chol/HDL ratio >6.0. Triglycerides <100 Triglycerides 100- 149 Triglycerides >/= 150 - For Diabetes Mellitus Diabetes Risk Guidelines: Diabetes Low Risk: HgA1c <6.5% and/or FBG <120. Diabetes Moderate Risk: HgA1c 6.6-7.9% and/or FBG 120-180. Diabetes High Risk: HgA1c >/= 8% and/or FBG >180 - For Obesity/Overweight Obesity/Overweight Risk Guidelines: Obesity Low Risk: BMI <25.0. Obesity Moderate Risk: BMI 25-29.9. Obesity High Risk: BMI >/= 30.0 - For Hypertension Hypertension Risk Guidelines: Hypertension Low Risk: Systolic <120 and Diastolic <80. Hypertension Moderate Risk: Systolic 120-139 and Diastolic 80-89. Hypertension High Risk: Systolic >/= 140 and Diastolic >/= 90 - For Sedentary Lifestyle Sedentary Lifestyle Risk Guidelines: Sedentary Lifestyle Low Risk: >/= 1,500 kcal/week. Sedentary Lifestyle Moderate Risk: 700-1,499 kcal/week. Sedentary Lifestyle High Risk: < 700 kcal/week - For Depression Depression Risk Guidelines: Depression Low Risk: Not clinically depressed. Depression Moderate Risk: Mildly depressed. Depression High Risk: Clinically depressed Motivation - Motivation to Participate On a scale of 1 to 10, how prepared are you to commit to attending program?: 10 What do you see as barriers to successfully being able to complete the program?: NONE What do you see as the benefits of succesfully completing the program? In other words, what do you hope to get out of participating in the program?: GETTING HEALTHIER, LEARNING HOW TO DEAL WIHT HEART DISEASE AND RECOVERY Are there issues you are dealing with that will interfere with completing the program?: NONE Do you have a spouse or signficant other, family or friends who will help support you to complete the program?: YES.
[2019-04-15 10:14] VITALS: BP 154/83; PULSE 78; RESP 16; TEMP 37.1; O2SAT 96; BMI 32.3
--- NOTE | 2019-04-15 10:55 | PCM.CR.ITP ---
General Information - General Information Admitting Diagnosis: NSTEMI, PCI W/CORONARY STENT - Education/Goals Barriers to Learning: Vision Impairment Individual Counseling: Initial Assessment: Abnormal Cholesterol Levels, High Blood Pressure, Overweight/Obesity Cardiac Rehabilitation Goals: 1. Maintain the individual as the primary focus of care. 2. To improve the patient's quality of life. 3. Identification of cardiac risk factors and provide cardiac risk factor management. 4. Enhance the psychosocial status of the patient. 5. Reconditioning enough to allow the patient to resume customary activities. 6. Control symptoms of cardiac disease Scale for measuring improvement of personal goals: Enter appropriate number in Comments. 2 = Unchanged. 3 = Slightly Better. 4 = Moderate Improvement. 5 = Met my Goal Personal Goals: Initial Assessment: Improve energy level, Participate in home exercise program, Get back to work, or to resume activities faster, Improve knowledge of cardiac disease, Improve muscle strength and endurance, Improve diet and eating habits (eat healthier), Control risk factors (learn risk factor modification) Exercise - Initial Assessment - Visit Date of Eval: 04/15/19 Session #:: 0 - START ON 04/21/2019 - Stages of Change Stages of Change:: Action - Physician Prescribed Exercise Modalities: Treadmill, Rower, Airdyne Frequency (days/week): 3x/week for 12 weeks [36 sessions] Duration (Minutes):: 30-45 Intensity: 60-80% age predicted maximum heart rate reserve METs - Progression: 0.5-1.0 MET, RPE 11-14 WEEK: 2.5 Target Heart Rate:: 101-132 - Hypertension Do any of the following apply?: Yes, Medication, Diet Resting Blood Pressure:: 154/82 - Intervention Home Exercise/Activity Goal:: Moderate Exercise 30 min/day x 5 days/wk - Education Goals:: Warm-up, RPE AMOS Scale, S/S, Safe Exercise, Self-Monitoring - Exercise Program Goals Exercise Program Goals: Aerobic Activity >30 min Nutrition - Initial Assessment - Program Goals Nutrition Program Goals: LDL <70. Total Cholesterol <200. HDL >45. Triglycerides <150. HgbA1C <7%. BMI <25 - Visit Date of Assessment:: 04/15/19 - Stages of Change Stages of Change:: Action - Lipids Total Cholesterol (mg/dL) Goal = less than 200 mg/dL: 150 HDL Cholesterol (mg/dL) Goal = less than 45 mg/dL: 46 LDL Cholesterol (mg/dL) Goal = less than 70 mg/dL: 101 Triglycerides (mg/dL) Goal = less than 150 mg/dL: 114 - Diabetes Diabetes:: No Do you monitor your blood sugar at home?: No - Weight Management Height: 5 ft 2 in Weight:: 177 lb Body Fat %:: 32.4 - STRUCTURED WEIGHT LOSS PROGRAM - Intervention Referral to dietitian:: Yes Referral to Diabetic Clinic:: No Will attend diet classes:: Yes - Education Gave educational materials for:: Healthy eating Tobacco - Initial Assessment - Program Goals Tobacco Program Goals: Complete smoking cessation. Attend education classes. 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 Do you use smokeless tobacco?: No - Intervention Smoking Cessation Referral:: No Individual Education/Counseling:: No Education Schedule Given:: Yes - Education Attended class for:: Treating Heart Disease, How The Heart Works, What it means to have Heart Disease, How Coronary Artery Disease is Diagnosed, Heart Procedures, What Heart Medications Do, Risk Factors & Modifications, Living an Active Life, Nutrition, Emotions & Heart Disease, Stress Management & Relaxation, Sleep Disorders & Heart Disease Psychosocial - Initial Assess - Target Goals Target Goals: Assess presence or absence of depression. Using a valid screening tool, maximizes coping skills. Positive support system - Stages of Change Stages of Change:: Action - Psychosocial Test Tool Used:: HANDS Depression Questionnaire - Intervention PS - Interventions: Yes Attend Stress Management Classes, No Referral to Mental Health, No Referral to [facility] Case Management, No Referral to Physician, No Uses Stress Management Skills - Education Gave educational materials for:: Coping techniques, Signs & symptoms of depression, Stress management, Relaxation techniques - Patient/Program Goal Preventative Medication(s):: Aspirin, Clopidogrel, Beta samantha, Statin/lipid - Assistive Devices Assistive Devices:: None Fall Risk Assessed:: Yes Patient Health Questionnaire Initial Assessment 1. Little interest or pleasure in doing things: Not at all 2. Feeling down, depressed, or hopeless: Not at all 3. Trouble falling or staying asleep, or sleeping too much: Several days 4. Feeling tired or having little energy: Several days 5. Poor appetite or overeating: Not at all 6. Feeling bad about yourself -- or that you are a failure or have let yourself or your family down: Not at all 7. Trouble concentrating on things, such as reading the newspaper or watching television: Not at all 8. Moving or speaking so slowly that other people could have noticed. Or the opposite - being so fidgety or restless that you have been moving around a lot more than usual: Not at all 9. Thoughts that you would be better off , or of hurting yourself in some way: Not at all How difficult have these problems made it for you to do your work, take care of things at home, or get along with other people?: Somewhat difficult Total Score: 2 NAS-Q SV Test - Statements CAD is a disease of the arteries in the heart: False Examples of risk factors for heart disease: True Angina is chest pain or discomfort: True The benefits of resistance training include: True Eating more meat and dairy products: False Anti-platelet medications such as aspirin are important: True The only effective way to manage stress: False An exercise warm-up slowly increases heart rate: True Prepared, processed foods usually have high sodium: True Depression is common after a heart attack: I Don't Know The statin medications lower cholesterol: I Don't Know To control blood pressure, lower the amount of sodium: True If someone gets chest discomfort during walking: False Transfats are partially hydrogenated vegetable oils: I Don't Know Sleep apnea that is not treated increases the risk: I Don't Know To control cholesterol, one should become a vegetarian: False Someone knows if he/she is exercising at the right level: True Diabetes cannot be prevented with exercise & health eating: False Stress is a large risk for heart attack: True A diet that can help lower blood pressure is rich in: True - Total Score Total Correct Responses: 16 Self-Efficacy Initial Assessment We would like to know how confident you are in doing certain activities. Please select your confidence level for:: Select your confidence level for the following using the scale 1-10 where 1 is not at all confident and 10 is totally confident. Your score is the average of all 6 responses. Fatigue: How confident are you that you can keep the fatigue caused by your disease from interfering with the things you want to do? Select Number: 5 Physical Discomfort or Pain: How confident are you that you can keep the physical discomfort or pain of your disease from interfering with the things you want to do? Select Number: 5 Emotional Distress: How confident are you that you can keep the emotional distress caused by your disease from interfering with the things you want to do? Select Number: 10 Other Symptoms or Health Problems: How confident are you that you can keep other symptoms or health problems from interfering with the things you want to do? Select Number: 6 Different Tasks and Activities: How confident are you that you can do the different tasks and activities needed to manage your health condition so as to reduce your need to see a doctor? Select Number: 7 Medication: How confident are you that you can do things other than just taking medication to reduce how much your illness affects your everyday life? Select Number: 8 Total Score:: 6 Nutrition Survey - Nutrition Survey Instructions Scoring Instructions: Scoring is as follows: Yes = 1 points. No = 0 point. Patient score that is >/=12 is considered to be at potential nutritional risk and could benefit from a referral to a registered dietitian. - Nutrition Survey Initial Have you lost >10 lbs over the past 2 months without trying?: No Are you following a special diet at home for diabetes, low fat, or low salt?: Yes Are you interested in meeting with a dietitian for help understanding your diet?: No Do you eat less than 3 meals a day?: Yes Do you eat fatty meats ([place], sausage, ribs, etc), fried foods, desserts, large amounts of salad dressings, margarine, butter, or cheese most days?: No Do you have food allergies? [Enter types in comment field]: No Do you eat in restaurants more than 3 times a week?: No Do you season food with salt, seasoning salt, or garlic salt?: No Do you used canned, boxed, frozen meals, or soups, seasoning packets?: No Total Score:: 2
[2019-04-15 11:04] VITALS: BP 154/82
== END | disposition home or self-care (01) ==
LOC: CR 08:53
PROVIDERS: Family Provider Family Medicine; PCP Family Medicine; Referring Provider Internal Medicine Cardiovascular Disease; Visit Provider Internal Medicine Cardiovascular Disease
DX: I21.4 Non-ST elevation (NSTEMI) myocardial infarction (principal); Z95.5 Presence of coronary angioplasty implant and graft

== ENCOUNTER 2019-04-23 09:15 | Outpatient (RCR) | payer OTHER, SELFPAY ==
[2019-04-15 10:14] VITALS: BMI 32.3
== END 2019-04-23 23:59 ==
LOC: CR 09:15
PROVIDERS: Family Provider Family Medicine; PCP Family Medicine; Referring Provider Internal Medicine Cardiovascular Disease; Visit Provider Internal Medicine Cardiovascular Disease
DX: I25.10 Atherosclerotic heart disease of native coronary artery without angina pectoris (principal); I10 Essential (primary) hypertension; Z95.5 Presence of coronary angioplasty implant and graft; I21.4 Non-ST elevation (NSTEMI) myocardial infarction
CPT/HCPCS: 93798

== ENCOUNTER → 2019-04-25 | Outpatient (CLI) | payer OTHER, SELFPAY ==
[2019-04-15 13:04] VITALS: BMI 31.6
[2019-04-25 11:23] LABS: PSA,Total- Diagnostic 4.03 ng/mL (0.0-4.0)
== END | disposition home or self-care (01) ==
LOC: LAB 10:00
PROVIDERS: Referring Provider Urology; Visit Provider Urology
DX: R97.20 Elevated prostate specific antigen [PSA] (principal)
CPT/HCPCS: 36415; 84153

== ENCOUNTER → 2019-05-08 | Outpatient (CLI) | payer OTHER, SELFPAY ==
[2019-05-06 11:37] VITALS: BMI 31.1
[2019-05-08 09:16] LABS: AST(SGOT) 45 U/L (15-37); Alanine Aminotransfer ALT/SGPT 54 U/L (16-61); Albumin, Serum 4.2 g/dL (3.2-5.0); Alkaline Phosphatase 85 U/L (45-117); Bilirubin, Direct 0.23 mg/dL (0.00-0.30); Cholesterol 89 mg/dL (200); Globulin 3.4 g/dL (2.2-4.2); High Density Lipoprotein 51 mg/dL; Protein, Total 7.6 g/dL (6.4-8.2); Triglycerides 57 mg/dL; Very Low Density Lipoprotein 11 mg/dL (5-40)
== END | disposition home or self-care (01) ==
LOC: LAB 08:32
PROVIDERS: Referring Provider Physician Assistant Medical; Visit Provider Physician Assistant Medical
DX: E78.00 Pure hypercholesterolemia, unspecified (principal)
CPT/HCPCS: 36415; 80061; 80076

== ENCOUNTER 2019-05-23 09:15 | Outpatient (RCR) | payer OTHER, SELFPAY ==
[2019-03-31 08:35] VITALS: BMI 32.3
[2019-04-15 13:04] VITALS: BMI 31.6
--- NOTE | 2019-05-14 11:56 | CR.ITP_ITS ---
Exercise - 30-day Assessment - Visit Date of Eval: 05/14/19 Session #:: 11 - Stages of Change Stages of Change:: Action - Physician Prescribed Exercise Modalities: Treadmill, Airdyne, NuStep Frequency (days/week): 3 Duration (Minutes):: 30-45 min Intensity: 60-80% age predicted maximum heart rate reserve METs - Progression: 0.5-1.0 MET, RPE 11-14 WEEK: 5.5 up from 3.0 Target Heart Rate:: 101-132 w/max hr 124 - Hypertension Resting Blood Pressure:: 106/62 Peak Exercise Blood Pressure:: 168/66 Medication Changes:: No - Intervention Home Exercise/Activity Goal:: Moderate Exercise 30 min/day x 5 days/wk - patient physically active daily > 30 minutes - Education Goals:: Warm-up, RPE AMOS Scale, S/S, Safe Exercise, Self-Monitoring - Exercise Program Goals Exercise Program Goals: Aerobic Activity >30 min Nutrition - Initial Assessment - Program Goals Nutrition Program Goals: LDL <70. Total Cholesterol <200. HDL >45. Triglycerides <150. HgbA1C <7%. BMI <25 - Diabetes Do you monitor your blood sugar at home?: No Nutrition - 30-Day Assessment - Program Goals Nutrition Program Goals: LDL <70. Total Cholesterol <200. HDL >45. Triglycerides <150. HgbA1C <7%. BMI <25 - Visit Date of Eval: 05/14/19 - Stages of Change Stages of Change:: Action - Lipids Has the patient seen the dietitian?: No - Diabetes Diabetes:: No Insulin: No - Weight Management Weight:: 167 lb 8 oz - Intervention Referral to dietitian:: No Referral to Diabetic Clinic:: No Will attend diet classes:: Yes - Education Attended class for:: Healthy eating Tobacco - Initial Assessment - Program Goals Tobacco Program Goals: Complete smoking cessation. Attend education classes. Improve Knowledge Test score - Learning Barriers Learning Barriers: Ready to Learn Tobacco - 30-Day Assessment - Program Goals Tobacco Program Goals: Complete smoking cessation. Attend education classes. Improve Knowledge Test score - Stage of Change Stages of Change:: Action - Learning Barriers Learning Barriers: Participates in education, Change in behavior - Family Support Do you have family support?: Yes - Tobacco Use Tobacco Use: Non-smoker Do you use smokeless tobacco?: No - Intervention Smoking Cessation Referral:: No Individual Education/Counseling:: No Education Schedule Given:: Yes - Education Attended class for:: Treating Heart Disease, How The Heart Works, What it means to have Heart Disease, How Coronary Artery Disease is Diagnosed, Heart Procedures, What Heart Medications Do, Risk Factors & Modifications, Living an Active Life, Nutrition, Emotions & Heart Disease, Stress Management & Relaxation, Sleep Disorders & Heart Disease Psychosocial - Initial Assess - Target Goals Target Goals: Assess presence or absence of depression. Using a valid screening tool, maximizes coping skills. Positive support system - Psychosocial Test Tool Used:: HANDS Depression Questionnaire - Assistive Devices Fall Risk Assessed:: Yes Psychosocial - 30-Day Assess - Target Goals Target Goals: Assess presence or absence of depression. Using a valid screening tool, maximizes coping skills. Positive support system - Stages of Change Stages of Change:: Action - Psychosocial Test Tool Used:: HANDS Depression Questionnaire - Intervention PS - Interventions: Yes Attend Stress Management Classes, Yes Uses Stress Management Skills, No Referral to Mental Health, No Referral to [facility] Case Management, No Referral to Physician - Education Attended classes for:: Coping techniques, Signs & symptoms of depression, Stress management, Relaxation techniques - Patient/Program Goal Preventative Medication(s):: Aspirin - patient compliant with medications, DEVORAH inhibitor, Clopidogrel, Beta samantha, Statin/lipid - Assistive Devices Assistive Devices:: None Fall Risk Assessed:: Yes Patient Health Questionnaire 30-Day Re-eval Assessment 1. Little interest or pleasure in doing things: Not at all 2. Feeling down, depressed, or hopeless: Not at all 3. Trouble falling or staying asleep, or sleeping too much: Several days 4. Feeling tired or having little energy: Not at all 5. Poor appetite or overeating: Not at all 6. Feeling bad about yourself -- or that you are a failure or have let yourself or your family down: Not at all 7. Trouble concentrating on things, such as reading the newspaper or watching television: Not at all 8. Moving or speaking so slowly that other people could have noticed. Or the opposite - being so fidgety or restless that you have been moving around a lot more than usual: Not at all 9. Thoughts that you would be better off , or of hurting yourself in some way: Not at all How difficult have these problems made it for you to do your work, take care of things at home, or get along with other people?: Not difficult at all Total Score: 1 Self-Efficacy 30-Day Re-eval Assessment We would like to know how confident you are in doing certain activities. Please select your confidence level for:: Select your confidence level for the following using the scale 1-10 where 1 is not at all confident and 10 is totally confident. Your score is the average of all 6 responses. Fatigue: How confident are you that you can keep the fatigue caused by your disease from interfering with the things you want to do? Select Number: 7 Physical Discomfort or Pain: How confident are you that you can keep the physical discomfort or pain of your disease from interfering with the things you want to do? Select Number: 7 Emotional Distress: How confident are you that you can keep the emotional distress caused by your disease from interfering with the things you want to do? Select Number: 10 Other Symptoms or Health Problems: How confident are you that you can keep other symptoms or health problems from interfering with the things you want to do? Select Number: 7 Different Tasks and Activities: How confident are you that you can do the diffe rent tasks and activities needed to manage your health condition so as to reduce your need to see a doctor? Select Number: 8 Medication: How confident are you that you can do things other than just taking medication to reduce how much your illness affects your everyday life? Select Number: 9 Total Score:: 8
[2019-05-14 12:00] VITALS: BP 106/62; BP 168/66
== END 2019-05-24 23:59 ==
LOC: CR 09:15
PROVIDERS: Family Provider Family Medicine; PCP Family Medicine; Referring Provider Internal Medicine Cardiovascular Disease; Visit Provider Internal Medicine Cardiovascular Disease
DX: I25.10 Atherosclerotic heart disease of native coronary artery without angina pectoris (principal); I10 Essential (primary) hypertension; E78.5 Hyperlipidemia, unspecified; Z95.5 Presence of coronary angioplasty implant and graft
CPT/HCPCS: 93798

== ENCOUNTER 2019-06-23 09:15 | Outpatient (RCR) | payer OTHER, SELFPAY ==
[2019-03-31 08:35] VITALS: BMI 32.3
[2019-05-06 11:37] VITALS: BMI 31.1
[2019-05-25 01:03] VITALS: BP 106/62; BP 168/66
--- NOTE | 2019-06-13 07:24 | CR.ITP_ITS ---
General Information - General Information Admitting Diagnosis: PCI WITH CORONARY STENT - Education/Goals Barriers to Learning: None Cardiac Rehabilitation Goals: 1. Maintain the individual as the primary focus of care. 2. To improve the patient's quality of life. 3. Identification of cardiac risk factors and provide cardiac risk factor management. 4. Enhance the psychosocial status of the patient. 5. Reconditioning enough to allow the patient to resume customary activities. 6. Control symptoms of cardiac disease Scale for measuring improvement of personal goals: Enter appropriate number in Comments. 2 = Unchanged. 3 = Slightly Better. 4 = Moderate Improvement. 5 = Met my Goal Exercise - 60-Day Assessment - Visit Date of Eval: 06/13/19 Session #:: 22 - Stages of Change Stages of Change:: Action - Physician Prescribed Exercise Modalities: Treadmill, Rower, Airdyne Frequency (days/week): 3 Duration (Minutes):: 30-45. Intensity: 60-80% age predicted maximum heart rate reserve METs - Progression: 0.5-1.0 MET, RPE 11-14 WEEK: 7 Target Heart Rate:: 101-132 MAX HR 133 - Hypertension Resting Blood Pressure:: 110/60 Peak Exercise Blood Pressure:: 170/62 - Intervention Home Exercise/Activity Goal:: Sitting Time <3 hrs/day - Education Goals:: Warm-up, RPE AMOS Scale, S/S, Safe Exercise, Self-Monitoring - Exercise Program Goals Exercise Program Goals: Aerobic Activity >30 min, B/P <130/80 Nutrition - Initial Assessment - Program Goals Nutrition Program Goals: LDL <70. Total Cholesterol <200. HDL >45. Triglycerides <150. HgbA1C <7%. BMI <25 - Diabetes Do you monitor your blood sugar at home?: No Nutrition - 60-Day Assessment - Program Goals Nutrition Program Goals: LDL <70. Total Cholesterol <200. HDL >45. Triglycerides <150. HgbA1C <7%. BMI <25 - Visit Date of Eval: 06/13/19 - Stages of Change Stages of Change:: Action - Lipids Has the patient seen the dietitian?: No - Diabetes Diabetes:: No - Weight Management Weight:: 75.977 kg - Intervention Referral to dietitian:: Yes - PT DECLINED Referral to Diabetic Clinic:: No Will attend diet classes:: Yes - Education Attended class for:: Signs & symptoms of hypoglycemia, Signs & symptoms of hyperglycemia, Relate diabetes to coronary artery disease, Healthy eating Tobacco - Initial Assessment - Program Goals Tobacco Program Goals: Complete smoking cessation. Attend education classes. Improve Knowledge Test score - Learning Barriers Learning Barriers: Ready to Learn Tobacco - 60-Day Assessment - Program Goals Tobacco Program Goals: Complete smoking cessation. Attend education classes. Improve Knowledge Test score - Stage of Change Stages of Change:: Action - Learning Barriers Learning Barriers: Participates in education - Family Support Do you have family support?: Yes - Tobacco Use Tobacco Use: Non-smoker Do you use smokeless tobacco?: No - Intervention Smoking Cessation Referral:: No Individual Education/Counseling:: No Education Schedule Given:: Yes - Education Attended class for:: Treating Heart Disease, How The Heart Works, What it means to have Heart Disease, How Coronary Artery Disease is Diagnosed, Heart Procedures, What Heart Medications Do, Risk Factors & Modifications, Living an Active Life, Nutrition, Emotions & Heart Disease, Stress Management & Relaxation, Sleep Disorders & Heart Disease Psychosocial - Initial Assess - Target Goals Target Goals: Assess presence or absence of depression. Using a valid screening tool, maximizes coping skills. Positive support system - Psychosocial Test Tool Used:: HANDS Depression Questionnaire - Assistive Devices Fall Risk Assessed:: Yes Psychosocial - 60-Day Assess - Target Goals Target Goals: Assess presence or absence of depression. Using a valid screening tool, maximizes coping skills. Positive support system - Stages of Change Stages of Change:: Action - Psychosocial Test Tool Used:: HANDS Depression Questionnaire - Intervention PS - Interventions: Yes Attend Stress Management Classes, Yes Uses Stress Management Skills, No Referral to Mental Health, No Referral to [facility] Diego ellis, No Referral to Physician - Education Attended classes for:: Coping techniques, Signs & symptoms of depression, Stress management, Relaxation techniques - Assistive Devices Assistive Devices:: None Fall Risk Assessed:: Yes Patient Health Questionnaire 60-Day Re-eval Assessment 1. Little interest or pleasure in doing things: Not at all 2. Feeling down, depressed, or hopeless: Not at all 3. Trouble falling or staying asleep, or sleeping too much: Several days 4. Feeling tired or having little energy: Not at all 5. Poor appetite or overeating: Not at all 6. Feeling bad about yourself -- or that you are a failure or have let yourself or your family down: Not at all 7. Trouble concentrating on things, such as reading the newspaper or watching television: Not at all 8. Moving or speaking so slowly that other people could have noticed. Or the opposite - being so fidgety or restless that you have been moving around a lot more than usual: Not at all 9. Thoughts that you would be better off , or of hurting yourself in some way: Not at all How difficult have these problems made it for you to do your work, take care of things at home, or get along with other people?: Not difficult at all Total Score: 1 Self-Efficacy 60-Day Re-eval Assessment We would like to know how confident you are in doing certain activities. Please select your confidence level for:: Select your confidence level for the following using the scale 1-10 where 1 is not at all confident and 10 is totally confident. Your score is the average of all 6 responses. Fatigue: How confident are you that you can keep the fatigue caused by your disease from interfering with the things you want to do? Select Number: 7 Physical Discomfort or Pain: How confident are you that you can keep the physical discomfort or pain of your disease from interfering with the things you want to do? Select Number: 7 Emotional Distress: How confident are you that you can keep the emotional distress caused by your disease from interfering with the things you want to do? Select Number: 10 Other Symptoms or Health Problems: How confident are you that you can keep other symptoms or health problems from interfering with the things you want to do? Select Number: 7 Different Tasks and Activities: How confident are you that you can do the different tasks and activities needed to manage your health condition so as to reduce your need to see a doctor? Select Number: 8 Medication: How confident are you that you can do things other than just taking medication to reduce how much your illness affects your everyday life? Select Number: 9 Total Score:: 8
[2019-06-13 07:31] VITALS: BP 110/60; BP 170/62
== END 2019-06-23 23:59 ==
LOC: CR 09:15
PROVIDERS: Referring Provider Internal Medicine Cardiovascular Disease; Visit Provider Internal Medicine Cardiovascular Disease
DX: I25.10 Atherosclerotic heart disease of native coronary artery without angina pectoris (principal); I25.2 Old myocardial infarction; I10 Essential (primary) hypertension; Z95.5 Presence of coronary angioplasty implant and graft
CPT/HCPCS: 93798

== ENCOUNTER 2019-07-14 13:00 | Outpatient (RCR) | payer OTHER, SELFPAY ==
[2019-03-31 08:35] VITALS: BMI 32.3
[2019-05-06 11:37] VITALS: BMI 31.1
[2019-06-24 00:56] VITALS: BP 110/60; BP 170/62
--- NOTE | 2019-07-11 08:52 | PCM.CR.ITP ---
Exercise - Final/Discharge - Visit Date of Eval: 07/11/19 Session #:: 34 - Stages of Change Stages of Change:: Action - Physician Prescribed Exercise Modalities: Treadmill, Rower, Airdyne, NuStep Frequency (days/week): 3 Duration (Minutes):: 30-45 Intensity: 60-80% age predicted maximum heart rate reserve METs - Progression: 0.5-1.0 MET, RPE 11-14 WEEK: 7.5 increased overall form initial 3 MET Target Heart Rate:: 101-132 w/max HR 123 - Hypertension Do any of the following apply?: Yes Resting Blood Pressure:: 98/62 Peak Exercise Blood Pressure:: 160/66 - Intervention Home Exercise/Activity Goal:: Moderate Exercise 30 min/day x 5 days/wk - Education Goal Progress: Goal Met - Exercise Program Goals Exercise Program Goals: Aerobic Activity >30 min Nutrition - Initial Assessment - Program Goals Nutrition Program Goals: LDL <70. Total Cholesterol <200. HDL >45. Triglycerides <150. HgbA1C <7%. BMI <25 - Diabetes Do you monitor your blood sugar at home?: No Nutrition - Final Assessment - Program Goals Nutrition Program Goals: LDL <70. Total Cholesterol <200. HDL >45. Triglycerides <150. HgbA1C <7%. BMI <25 - Visit Date of Eval: 07/11/19 - Stages of Change Stages of Change:: Action - Diabetes Diabetes:: No Insulin: No Non-Insulin Dependent?: No - Weight Management Height: 5 ft 2 in Weight:: 165 lb 8 oz - down form initial weight of 177 - Intervention Referral to dietitian:: No Referral to Diabetic Clinic:: No Will attend diet classes:: Yes - Education Education Goal Reached?: Yes Tobacco - Initial Assessment - Program Goals Tobacco Program Goals: Complete smoking cessation. Attend education classes. Improve Knowledge Test score - Learning Barriers Learning Barriers: Ready to Learn Tobacco - Final Assessment - Program Goals Tobacco Program Goals: Complete smoking cessation. Attend education classes. Improve Knowledge Test score - Stage of Change Stages of Change:: Action - Learning Barriers Cardiac Knowledge Test Score:: 20 - Family Support Do you have family support?: Yes - Tobacco Use Tobacco Use: Non-smoker Do you use smokeless tobacco?: No - Intervention Smoking Cessation Referral:: No Individual Education/Counseling:: No Education Schedule Given:: Yes - Education Education Goal Reached?: Yes Psychosocial - Initial Assess - Target Goals Target Goals: Assess presence or absence of depression. Using a valid screening tool, maximizes coping skills. Positive support system - Psychosocial Test Tool Used:: HANDS Depression Questionnaire - Assistive Devices Fall Risk Assessed:: Yes Psychosocial - Final Assessmen - Target Goals Target Goals: Assess presence or absence of depression. Using a valid screening tool, maximizes coping skills. Positive support system - Stages of Change Stages of Change:: Action - Psychosocial Test Tool Used:: HANDS Depression Questionnaire - Intervention PS - Interventions: Yes Attend Stress Management Classes, Yes Uses Stress Management Skills, No Referral to Mental Health, No Referral to [facility] Case Management, No Referral to Physician - Education Education Goal Reached?: Yes - Patient/Program Goal Preventative Medication(s):: Aspirin, DEVORAH inhibitor, Clopidogrel, Beta samantha, Statin/lipid - patinet compliant with medications - Assistive Devices Assistive Devices:: None Fall Risk Assessed:: Yes Patient Health Questionnaire Discharge Assessment 1. Little interest or pleasure in doing things: Not at all 2. Feeling down, depressed, or hopeless: Not at all 3. Trouble falling or staying asleep, or sleeping too much: Not at all 4. Feeling tired or having little energy: Not at all 5. Poor appetite or overeating: Not at all 6. Feeling bad about yourself -- or that you are a failure or have let yourself or your family down: Not at all 7. Trouble concentrating on things, such as reading the newspaper or watching television: Not at all 8. Moving or speaking so slowly that other people could have noticed. Or the opposite - being so fidgety or restless that you have been moving around a lot more than usual: Not at all 9. Thoughts that you would be better off , or of hurting yourself in some way: Not at all Total Score: 0 NAS-Q SV Test - Statements CAD is a disease of the arteries in the heart: False Examples of risk factors for heart disease: True Angina is chest pain or discomfort: True The benefits of resistance training include: True Eating more meat and dairy products: False Anti-platelet medications such as aspirin are important: True The only effective way to manage stress: False An exercise warm-up slowly increases heart rate: True Prepared, processed foods usually have high sodium: True Depression is common after a heart attack: True The statin medications lower cholesterol: True To control blood pressure, lower the amount of sodium: True If someone gets chest discomfort during walking: False Transfats are partially hydrogenated vegetable oils: True Sleep apnea that is not treated increases the risk: False To control cholesterol, one should become a vegetarian: False Someone knows if he/she is exercising at the right level: True Diabetes cannot be prevented with exercise & health eating: False Stress is a large risk for heart attack: True A diet that can help lower blood pressure is rich in: True - Total Score Total Correct Responses: 20 Self-Efficacy Discharge Assessment We would like to know how confident you are in doing certain activities. Please select your confidence level for:: Select your confidence level for the following using the scale 1-10 where 1 is not at all confident and 10 is totally confident. Your score is the average of all 6 responses. Fatigue: How confident are you that you can keep the fatigue caused by your disease from interfering with the things you want to do? Select Number: 10 Physical Discomfort or Pain: How confident are you that you can keep the physical discomfort or pain of your disease from interfering with the things you want to do? Select Number: 10 Emotional Distress: How confident are you that you can keep the emotional distress caused by your disease from interfering with the things you want to do? Select Number: 10 Other Symptoms or Health Problems: How confident are you that you can keep other symptoms or health problems from interfering with the things you want to do? Select Number: 10 Different Tasks and Activities: How confident are you that you can do the different tasks and activities needed to manage your health condition so as to reduce your need to see a doctor? Select Number: 10 Medication: How confident are you that you can do things other than just taking medication to reduce how much your illness affects your everyday life? Nutrition Survey - Nutrition Survey Instructions Scoring Instructions: Scoring is as follows: Yes = 1 points. No = 0 point. Patient score that is >/=12 is considered to be at potential nutritional risk and could benefit from a referral to a registered dietitian. - Nutrition Survey Discharge Have you lost >10 lbs over the past 2 months without trying?: No Are you following a special diet at home for diabetes, low fat, or low salt?: Yes Are you interested in meeting with a dietitian for help understanding your diet?: No Do you eat less than 3 meals a day?: No Do you eat fatty meats (stapleton, sausage, ribs, etc), fried foods, desserts, large amounts of salad dressings, margarine, butter, or cheese most days?: No Do you have food allergies? [Enter types in comment field]: No Do you eat in restaurants more than 3 times a week?: No Do you season food with salt, seasoning salt, or garlic salt?: No Do you used canned, boxed, frozen meals, or soups, seasoning packets?: Yes Total Score:: 2
[2019-07-11 08:57] VITALS: BP 160/66; BP 98/62
== END 2019-07-24 23:59 ==
LOC: CR 13:00
PROVIDERS: Referring Provider Internal Medicine Cardiovascular Disease; Visit Provider Internal Medicine Cardiovascular Disease
DX: I25.10 Atherosclerotic heart disease of native coronary artery without angina pectoris (principal); I25.2 Old myocardial infarction; I10 Essential (primary) hypertension; Z95.5 Presence of coronary angioplasty implant and graft
CPT/HCPCS: 93798

== ENCOUNTER → 2020-02-10 07:37 | Outpatient (CLI) | payer OTHER, MEDICARE, SELFPAY ==
[2020-01-14 13:02] VITALS: BMI 29.8
--- NOTE | 2020-02-10 07:49 | ECHOD_ITS ---
Reason For Study: CAD, HLD, HTN, Procedure This was a 2D Doppler, Color Flow transthoracic echocardiogram. The study was technically difficult. Exam performed in department. Left Ventricle Normal LV size. Apical false tendon noted. Left ventricular systolic function is normal. The estimated ejection fraction is 60 %. No evidence for diastolic dysfunction. No regional wall motion abnormalities noted. Right Ventricle Normal RV size. Normal systolic function. Atria Normal left atrium. Normal right atrium. No doppler evidence for ASD. Mitral Valve There is no mitral annular calcification. Normal mitral valve. Mild (1+) mitral valve insufficiency. Tricuspid Valve Normal tricuspid valve. Trivial tricuspid valve insufficiency. Right ventricular systolic pressure estimated to be 26 mmHg. Aortic Valve Trisinus/trileaflet aortic valve. Normal aortic valve. Trivial aortic valve insufficiency. Pulmonic Valve The pulmonic valve is not well visualized. Mild (1+) pulmonic valve insufficiency. Great Vessels Normal sized aortic root. Pericardium/Pleural No pericardial effusion. MMode/2D Measurements & Calculations LVIDd: 4.9 cm IVSd: 1.1 cm Ao root diam: 3.5 cm LVIDs: 3.1 cm LVPWd: 0.96 cm RVDd: 3.3 cm FS: 36.5 % LAV(MOD-bp): 53.2 ml LA A4 area: 16.7 cm2 LA dimension(2D): 3.5 cm LAV(MOD-bp) Indexed: 30.4 ml/m2 LAV(MOD-sp2): 54.4 ml LAV(MOD-sp4): 47.4 ml RA A4 area: 12.8 cm2 Time Measurements MV dec time: 0.23 sec Doppler Measurements & Calculations MV E max artem: 76.9 cm/sec Lat Peak E' Artem: 10.4 cm/sec Med Peak E' Artem: 6.0 cm/sec MV A max artem: 65.9 cm/sec E/E' lat: 7.4 E/E' med: 12.8 MV E/A: 1.2 Ao V2 max: 111.6 cm/sec LV V1 max: 98.5 cm/sec PA V2 max: 92.8 cm/sec Ao max P.3 mmHg LV V1 max P.9 mmHg TR max artem: 238.3 cm/sec TR max P.7 mmHg Interpretation Summary The study was technically difficult. Left ventricular systolic function is normal. The estimated ejection fraction is 60 %. Apical false tendon noted. Mild (1+) mitral valve insufficiency. Trivial tricuspid valve insufficiency. Trivial aortic valve insufficiency. Mild (1+) pulmonic valve insufficiency. Right ventricular systolic pressure estimated to be 26 mmHg. No evidence for diastolic dysfunction. Ordering Physician: Tevin Henry Referring Physician: Arline Arnold Performed By: Shereen Higuera RDCS, RVT
[2020-02-10 09:21] LABS: AST(SGOT) 26 U/L (15-37); Alanine Aminotransfer ALT/SGPT 34 U/L (16-61); Alkaline Phosphatase 86 U/L (45-117); Bilirubin, Direct 0.29 mg/dL (0.00-0.30); Cholesterol 103 mg/dL (200); Globulin 3.2 g/dL (2.2-4.2); High Density Lipoprotein 48 mg/dL; Protein, Total 7.2 g/dL (6.4-8.2); Triglycerides 88 mg/dL; Very Low Density Lipoprotein 18 mg/dL (5-40)
== END ==
PROVIDERS: Internal Medicine Cardiovascular Disease; Referring Provider Internal Medicine Cardiovascular Disease; Visit Provider Internal Medicine Cardiovascular Disease
DX: I25.10 Atherosclerotic heart disease of native coronary artery without angina pectoris (principal); Z95.5 Presence of coronary angioplasty implant and graft; E78.5 Hyperlipidemia, unspecified; I10 Essential (primary) hypertension
CPT/HCPCS: 36415; 80061; 80076; 93306

== ENCOUNTER → 2020-05-05 | Outpatient (CLI) | payer MEDICARE, OTHER, SELFPAY ==
[2020-03-17 09:28] VITALS: BMI 30.2
== END | disposition home or self-care (01) ==
LOC: LAB 09:26
PROVIDERS: Referring Provider Urology; Visit Provider Urology
DX: R97.20 Elevated prostate specific antigen [PSA] (principal)
CPT/HCPCS: 36415; 84153

== ENCOUNTER → 2020-11-18 07:58 | Outpatient (CLI) | payer MEDICARE, OTHER, SELFPAY ==
[2020-11-18 09:03] LABS: AST(SGOT) 28 U/L (15-37); Alanine Aminotransfer ALT/SGPT 43 U/L (16-61); Albumin, Serum 3.9 g/dL (3.2-5.0); Alkaline Phosphatase 90 U/L (45-117); Bilirubin, Direct 0.23 mg/dL (0.00-0.30); Cholesterol 100 mg/dL (200); Globulin 3.3 g/dL (2.2-4.2); High Density Lipoprotein 51 mg/dL; Protein, Total 7.2 g/dL (6.4-8.2); Triglycerides 107 mg/dL; Very Low Density Lipoprotein 21 mg/dL (5-40)
== END ==
PROVIDERS: Referring Provider Internal Medicine Cardiovascular Disease; Visit Provider Internal Medicine Cardiovascular Disease
DX: E66.9 Obesity, unspecified (principal); I10 Essential (primary) hypertension; I25.10 Atherosclerotic heart disease of native coronary artery without angina pectoris; E78.00 Pure hypercholesterolemia, unspecified; Z95.5 Presence of coronary angioplasty implant and graft
CPT/HCPCS: 36415; 80061; 80076

== ENCOUNTER → 2021-05-11 10:32 | Outpatient (CLI) | payer MEDICARE, OTHER, SELFPAY ==
[2021-05-11 12:25] LABS: AST(SGOT) 28 U/L (15-37); Alanine Aminotransfer ALT/SGPT 43 U/L (16-61); Albumin, Serum 4.1 g/dL (3.2-5.0); Alkaline Phosphatase 94 U/L (45-117); Bilirubin, Direct 0.18 mg/dL (0.00-0.30); Cholesterol 97 mg/dL (200); Globulin 3.4 g/dL (2.2-4.2); High Density Lipoprotein 52 mg/dL; PSA,Total - Annual Screen 3.74 ng/mL (0.00-4.00); Protein, Total 7.5 g/dL (6.4-8.2); Triglycerides 76 mg/dL; Very Low Density Lipoprotein 15 mg/dL (5-40)
== END ==
PROVIDERS: Physician Assistant Medical; Visit Provider Urology
DX: E78.00 Pure hypercholesterolemia, unspecified (principal); I25.10 Atherosclerotic heart disease of native coronary artery without angina pectoris; I10 Essential (primary) hypertension; E66.9 Obesity, unspecified; Z12.5 Encounter for screening for malignant neoplasm of prostate
CPT/HCPCS: 36415; 80061; 80076; 84153; G0103

== ENCOUNTER 2021-12-02 08:22 | Outpatient (CLI) | payer MEDICARE, OTHER, SELFPAY ==
[2021-12-02 09:56] LABS: AST(SGOT) 23 U/L (15-37); Alanine Aminotransfer ALT/SGPT 35 U/L (16-61); Albumin, Serum 3.9 g/dL (3.2-5.0); Alkaline Phosphatase 83 U/L (45-117); Bilirubin, Direct 0.18 mg/dL (0.00-0.30); Cholesterol 111 mg/dL (200); Globulin 3.3 g/dL (2.2-4.2); High Density Lipoprotein 50 mg/dL; Protein, Total 7.2 g/dL (6.4-8.2); Triglycerides 123 mg/dL; Very Low Density Lipoprotein 25 mg/dL (5-40)
== END 2021-12-02 23:59 | disposition home or self-care (01) ==
LOC: LAB 08:24
PROVIDERS: Referring Provider Physician Assistant Medical; Visit Provider Physician Assistant Medical
DX: E78.00 Pure hypercholesterolemia, unspecified (principal); E78.5 Hyperlipidemia, unspecified
CPT/HCPCS: 36415; 80061; 80076

== ENCOUNTER → 2022-05-10 | Outpatient (CLI) | payer MEDICARE, OTHER, SELFPAY ==
[2022-05-10 12:44] LABS: AST(SGOT) 25 U/L (15-37); Alanine Aminotransfer ALT/SGPT 37 U/L (16-61); Albumin, Serum 3.9 g/dL (3.2-5.0); Alkaline Phosphatase 74 U/L (45-117); Bilirubin, Direct 0.16 mg/dL (0.00-0.30); Cholesterol 124 mg/dL (200); Globulin 3.6 g/dL (2.2-4.2); High Density Lipoprotein 51 mg/dL; Protein, Total 7.5 g/dL (6.4-8.2); Triglycerides 108 mg/dL; Very Low Density Lipoprotein 22 mg/dL (5-40)
== END | disposition home or self-care (01) ==
LOC: LAB 11:31
PROVIDERS: Visit Provider Physician Assistant Medical
DX: E78.5 Hyperlipidemia, unspecified (principal)
CPT/HCPCS: 36415; 80061; 80076

== ENCOUNTER → 2022-06-05 | Outpatient (CLI) | payer MEDICARE, OTHER, SELFPAY ==
[2022-06-05 09:43] LABS: PSA,Total- Diagnostic 4.31 ng/mL (0.0-4.0)
== END | disposition home or self-care (01) ==
LOC: LAB 08:22
PROVIDERS: Referring Provider Urology; Visit Provider Urology
DX: R97.20 Elevated prostate specific antigen [PSA] (principal)
CPT/HCPCS: 36415; 84153

== ENCOUNTER 2022-06-15 06:21 | Emergency (ER) | payer MEDICARE, OTHER, SELFPAY ==
[2022-06-15 06:22] VITALS: BP 174/90; PULSE 94; RESP 14; TEMP 36.8; O2SAT 97; BMI 30.3
--- NOTE | 2022-06-15 06:43 | RAD_ITS ---
INDICATION: chest pain EXAMINATION/TECHNIQUE: X-RAY - XR Chest 1 View COMPARISON: None. FINDINGS: LINES/DEVICES: None. LUNGS: No consolidation, edema or effusion. No pneumothorax. MEDIASTINUM AND CARDIOVASCULAR STRUCTURES: Atherosclerotic calcifications. Cardiomediastinal contours are within normal limits. BONES AND SOFT TISSUES: Unremarkable. RAD/Chest 1 View (Portable) IMPRESSION: No acute cardiopulmonary disease. Electronically Signed: Tadeo Monroy MD at 7:07 EDT ,
--- NOTE | 2022-06-15 06:44 | EDS_ITS ---
HPI History of Present Illness Chief Complaint: Chest Pain Detail of Chief Complaint: Chest pain Informant: patient and spouse/S.O. Onset/Context/Timing Current Severity: 01/01 Narrative Narrative: Patient presents the emergency department with discomfort in his chest. Patient initially had discomfort in the left side of his chest around 7 PM last evening after eating a hot dog and developing a lot of indigestion and bloating and belching. Patient states that he took Tums but did not have much in the way of relief. Patient states initially after hours of discomfort he had the pain f inally resolved and he was able to fall asleep for a time. Patient woke up at 5 AM this morning and now had a pain in the center of his chest that seems to be worse with deep breath and belching. Patient is concerned because he has a history of a stent placed about 3 years ago. Patient denies recent travel or surgery. He denies fever or recent illness. Prior similar symptoms: No PFSH PFSH Medical History Atherosclerosis of standing rock coronary artery of standing rock heart without angina pectoris Diverticulosis Essential (primary) hypertension Hx of non-ST elevation myocardial infarction (NSTEMI) Hypercalcemia Hyperlipidemia NSTEMI (non-ST elevated myocardial infarction) Obesity (BMI 30.0-34.9) Old myocardial infarction Presence of stent in coronary artery (~03/30/19) Home Medications aspirin 81 mg tablet,delayed release 81 mg PO DAILY@0800 03/31/19 [Rx Last Taken Unknown] cranberry 500 mg capsule 500 mg PO DAILY 05/11/21 [History Last Taken Unknown] atorvastatin 40 mg tablet 40 mg PO QHS #90 tabs 01/09/22 [Rx Last Taken Unknown] losartan 25 mg tablet 25 mg PO DAILY #90 tabs 01/09/22 [Rx Last Taken Unknown] metoprolol tartrate 25 mg tablet 25 mg PO BID this is a dose increase, ignore pr evious RX #180 tabs 01/10/22 [Rx Last Taken Unknown] Allergy/AdvReac Type Severity Reaction Status Date / Time No Known Allergies Allergy Verified 05/10/22 10:55 Family History Father Valvular heart disease Congenital CAD (coronary artery disease) Stenting in late 60s Mother Cardiac pacemaker in situ Surgical History Presence of coronary angioplasty implant and graft (~03/30/19) Social History Smoking Status: Never smoker ROS ROS ED Review of Systems ROS Unobtainable: other Constitutional Constitutional ED: Reports lethargy; Denies chills, fever(s), sweats or weight loss Eyes Eyes: Denies blurry vision, change in vision or diplopia ENT ENT ED: Denies rhinorrhea or sore throat Cardiovascular Cardiovascular: Reports chest pain; Denies orthopnea or racing heartbeat Respiratory/Chest Respiratory/Chest: Denies cough, dyspnea, dyspnea on exertion, orthopnea or sputum Gastrointestinal Gastrointestinal: Denies abdominal pain, diarrhea, nausea or vomiting Genitourinary Genitourinary ED: Denies dysuria, hematuria or urinary frequency Musculoskeletal Musculoskeletal: Denies arthralgias, back pain, myalgias or neck pain Integumentary Denies abscess, Abrasions or rash Neurologic Neurologic: Denies headache(s) or weakness Psychiatric Psychiatric: Denies anxiety, depression or suicidal thoughts Endocrine Endocrinology: Denies polydipsia, polyphagia or polyuria Hematologic/Lymphatic Hematologic/Lymphatic: Denies easy bleeding, easy bruising or lymphadenopathy Allergic/Immunologic Allergic/Immunologic ED: Denies mouth swelling, tongue swelling or urticaria EXAM Physical Exam Const Vital Signs: 06/15/22 06:22 06/15/22 06:25 Temperature 98.3 F Temperature Source Temporal Pulse Rate 94 Respiratory Rate 14 Respiratory Effort Normal Blood Pressure 174/90 H Blood Pressure Mean 118 Pulse Ox 97 Oxygen Delivery Method Room Air Positive well nourished and well developed General Appearance ED: well developed and NAD HEENT Reports TM's clear and moist mucous membranes normocephalic and atraumatic; Negative for trauma or tenderness Tympanic Membrane ED: Yes TM's clear Eyes PERRL and EOMs intact bilaterally General Eye ED: Negative for pale conjunctiva or scleral icterus Neck no lymphadenopathy, supple and no JVD General: Negative for tenderness Chest Wall inspection of chest normal and palpation of chest normal Chest: Negative for tenderness Resp normal respiratory effort and clear to auscultation bilaterally Effort and Inspection: Negative for respiratory distress or pain with movement Auscultation: Negative for rhonchi, wheezes or diminished lung sounds Cardio regular rate, regular rhythm, S1 normal heart sound, S2 normal heart sound and no murmurs Peripheral Pulses: pulses 2+ throughout GI normal to inspection, nondistended, normoactive bowel sounds, soft to palpation, non-tender, non-distended and no masses Back/Spine no CVA tenderness and no thoracic nor lumbar tenderness Extremity normal to inspection General Extremety ED: Negative for edema General Extremity: Negative for edema Neuro oriented x3, CN's II-XII intact bilaterally, no sensory deficits noted and gait normal Sensorium / Orientation: awake, alert, oriented to person, oriented to place and oriented to time Motor Exam: strength 5/5 throughout and strength abnormal Psych mental status grossly normal Skin no rashes or lesions noted and no wounds MDM MDM MDM Narrative Medical decision making narrative: IV line established on arrival. EKG obtained was normal. Patient had taken aspirin at home. He was ordered a GI cocktail. Lab work-up pending. Lab Data Attestation: I reviewed the patient's lab results. Labs: Laboratory Results - last 24 hr 06/15/22 06:45 WBC 13.3 H RBC 5.57 Hgb 16.0 Hct 50.2 MCV 90.1 MCH 28.7 MCHC 31.9 L RDW Std Deviation 40.2 RDW Coeff of Awilda 12.3 Plt Count 180 MPV 9.3 Immature Gran % (Auto) 0.300 Neut % (Auto) 77.5 H Lymph % (Auto) 15.2 L [place] % (Auto) 6.2 Eos % (Auto) 0.5 Baso % (Auto) 0.3 Absolute Neuts (auto) 10.3 H Absolute Lymphs (auto) 2.03 Nucleated RBC % 0 Radiography Diagnostic Testin view chest x-ray obtained interpreted by myself no acute disease process. Official report from radiology pending. EKG Initial EKG: Attestation: I personally reviewed and interpreted this EKG as follows: Comments: Sinus rhythm with a ventricular rate of 98 bpm with no acute ST segment changes Discharge Plan Triage Chief Complaint: Chest Pain ED Provider: Keely Salmeron Dx/Rx/DC Orders Prescriptions: No Action cranberry 500 mg capsule 500 mg PO DAILY Rx Instructions: administer with meals aspirin 81 MG tablet 81 mg PO DAILY@0800 0RF losartan 25 mg tablet 25 mg PO DAILY Qty: 90 3RF atorvastatin 40 mg tablet 40 mg PO QHS Qty: 90 3RF metoprolol tartrate 25 mg tablet 25 mg PO BID Qty: 180 3RF Primary Care Provider: Arline Arnold Referrals: Arline Arnold DO [Primary Care Provider] -
[2022-06-15 06:56] LABS: Absolute Lymphocyte Count 2.03 X10^3/uL (0.83-4.51); Absolute Neutrophil Count 10.3 X10^3/uL (2.0-7.7); Basophil# 0.04 X10^3/uL; Basophil% 0.3 % (0-1); Eosinophil# 0.06 X10^3/uL; Eosinophils% 0.5 % (0-5); Hematocrit 50.2 % (40-54); Lymphocyte # 2.03 X10^3/ul (0.83-4.51); Lymphocyte % 15.2 % (19-41); Mean Corp Hgb Conc 31.9 g/dL (32-36); Mean Corpuscular Hgb 28.7 pg (27.0-32.0); Mean Corpuscular Volume 90.1 fL (80-94); Mean Platelet Vol. 9.3 fl (6.2-12.0); Monocyte# 0.82 X10^3/uL; Monocyte% 6.2 % (0-10); NRBC Flagged by Analyzer 0 % (0-5); Neutrophil # 10.33 X10^3/uL (2.7-7.7); Neutrophil % 77.5 % (47-70); Platelet Count 180 K/mm3 (150-450); RBC Distribution Width CV 12.3 % (11.6-14.6); RBC Distribution Width SD 40.2 fl (35.1-43.9); Red Blood Count 5.57 M/mm3 (4.6-6.2); White Blood Count 13.3 K/mm3 (4.4-11.0)
[2022-06-15] MEDS: Mag Hydrox/Al Hydrox/Simeth 30 ML UDC PO ×2 (07:01→11:42)
[2022-06-15] MEDS: 0.9% Normal Saline 1,000 ML 150 ML IV (07:02)
[2022-06-15 07:12] LABS: AST(SGOT) 22 U/L (15-37); Alanine Aminotransfer ALT/SGPT 35 U/L (16-61); Albumin, Serum 4.2 g/dL (3.2-5.0); Alkaline Phosphatase 91 U/L (45-117); Bilirubin, Direct 0.17 mg/dL (0.00-0.30); Globulin 3.6 g/dL (2.2-4.2); Protein, Total 7.8 g/dL (6.4-8.2)
[2022-06-15 07:23] LABS: Anion Gap 8 (5-15); BUN 16 mg/dL (7-18); Calcium,Total 11.3 mg/dL (8.5-10.1); Chloride 106 mmol/L (98-107); Creatinine, Serum 1.14 mg/dL (0.70-1.30); EST Glomerular Filtration Rate 68 mL/min (>60); Est Glom Filt Rate - Afr Amer 82 mL/min (>60); Estimated Creatinine Clearance 47.89 ml/min; Glucose 111 mg/dL (74-106); Lipase 258 U/L (73-393); Potassium 3.8 mmol/L (3.5-5.1); Sodium Level 140 mmol/L (136-145); Troponin-I HS (w/2H Reflex) 14 pg/mL (3.0-78.0)
[2022-06-15 08:44] VITALS: BP 150/93; PULSE 90; RESP 16; O2SAT 95; O2SAT 96
[2022-06-15 08:53] LABS: Reflex Troponin-HS? (from REC) Y
[2022-06-15 09:30] VITALS: BP 148/87; PULSE 80; RESP 16; O2SAT 96
[2022-06-15 09:32] LABS: Troponin-I HS 16 pg/mL (3.0-78.0)
--- NOTE | 2022-06-15 09:33 | EKG12_ITS ---
Test Reason : CHEST PAIN REPEAT Blood Pressure : / mmHG Vent. Rate : 089 BPM Atrial Rate : 089 BPM P-R Int : 200 ms QRS Dur : 082 ms QT Int : 350 ms P-R-T Axes : 046 022 068 degrees QTc Int : 425 ms Normal sinus rhythm Normal ECG Confirmed by JONI MARIE, KAY ([id number]), design editor STERLING COLE ([id number]) on 06/19/2022 9:42:29 AM Referred By: BETHANY Confirmed By:KAY QUINONES MD
--- NOTE | 2022-06-15 09:34 | EKG12_ITS ---
Test Reason : CHEST PAIN Blood Pressure : / mmHG Vent. Rate : 098 BPM Atrial Rate : 098 BPM P-R Int : 198 ms QRS Dur : 080 ms QT Int : 322 ms P-R-T Axes : 061 022 065 degrees QTc Int : 411 ms Normal sinus rhythm Normal ECG Confirmed by JONI MARIE, KAY ([id number]), assistant film editor STERLING COLE ([id number]) on 06/19/2022 9:42:13 AM Referred By: RU Confirmed By:KAY QUINONES MD
[2022-06-15 11:28] VITALS: BP 137/89; PULSE 92; RESP 25; O2SAT 96
[2022-06-15] MEDS: Morphine 4 MG/ML Syringe IV (11:40)
[2022-06-15] MEDS: Pantoprazole Sodium 40 MG Tablet PO (11:41)
[2022-06-15 12:52] VITALS: BP 114/70; PULSE 86; RESP 16; O2SAT 96
== END 2022-06-15 12:53 | disposition home or self-care (01) ==
PROVIDERS: Emergency Provider Emergency Medicine; Visit Provider Emergency Medicine
DX: R07.9 Chest pain, unspecified (principal); I25.10 Atherosclerotic heart disease of native coronary artery without angina pectoris; E78.5 Hyperlipidemia, unspecified; R14.2 Eructation; I10 Essential (primary) hypertension; Z79.82 Long term (current) use of aspirin; Z79.899 Other long term (current) drug therapy
CPT/HCPCS: 71045; 80048; 80076; 83690; 84484; 85025; 93005; 96361; 96374; 99285; J7030; A4216

== ENCOUNTER → 2022-07-12 | Outpatient (CLI) | payer MEDICARE, OTHER, SELFPAY ==
--- NOTE | 2022-07-12 07:09 | MRI_ITS ---
STUDY: MRI LUMBAR SPINE WITHOUT CONTRAST REASON FOR EXAM: Male, 66 years old. Low back pain --INTO R HIP AND BILATERAL FEET TECHNIQUE: Standardized fat and water weighted pulse sequences were obtained in the sagittal and axial planes. COMPARISON: 06/28/2022 x-ray FINDINGS: T12-L1: Mild disc bulge and annular tear. No significant neural foraminal or spinal canal stenosis. Slight L1-2 and L2-3 stepwise retrolisthesis. Grade 1 L3-4 anterolisthesis. Mild levoscoliosis centered on L3. Normal conus medullaris that terminates at the level of L1. L1-2: Disc bulge, eccentric to the right, with mild right neural foraminal stenosis. No significant spinal canal stenosis. L2-3: Disc bulge, facet hypertrophy, and ligamentum flavum redundancy with mild spinal canal stenosis. No significant neural foraminal stenosis. L3-4: Disc bulge, facet hypertrophy, ligamentum flavum redundancy, and severe spinal canal stenosis with effacement of the CSF and suspected compression of the cauda equina. Mild right and moderate left neural foraminal stenosis. L4-5: Left lateral disc bulge with crowding of the left lateral recess and traversing left L5 nerve root. No spinal canal stenosis. Mild right and moderate left neural foraminal stenosis. L5-S1: Disc bulge and facet hypertrophy with moderate severe bilateral neural foraminal stenosis. No significant spinal canal stenosis. Normal visualized sacral ala. There is mild paraspinal muscular atrophy. Bilateral renal cysts. MRI/Spine Lumbar (Routine) IMPRESSION: Severe spinal canal stenosis and probable cauda equina compression at L3-4. Multilevel neural foraminal stenosis, moderate to severe bilaterally at L5-S1. Electronically Signed: Tevin Ceballos MD at 1:08 EDT ,
== END | disposition home or self-care (01) ==
LOC: MRI 07:09
PROVIDERS: Referring Provider Orthopaedic Surgery; Visit Provider Orthopaedic Surgery
DX: M54.50 Low back pain, unspecified (principal)
CPT/HCPCS: 72148

== ENCOUNTER → 2022-08-23 | Outpatient (CLI) | payer MEDICARE, OTHER, SELFPAY ==
--- NOTE | 2022-08-23 15:22 | NEURO ---
NCS and/or EMG Patient Report Ordering Doctor: Shemar Griffith DATE OF SERVICE: 08/23/22 Jones presents for electrodiagnostic testing of the lower limbs. He reports numbness in both feet radiating up to the knees. He reports intermittent lower back pain. Electrodiagnostic findings: Left peroneal motor nerve demonstrates prolonged distal latency with reduced amplitude and normal conduction velocity. Right peroneal motor nerve demonstrates prolonged latency with reduced amplitude and reduced conduction velocity tibial motor amplitudes and conduction velocities are reduced bilaterally. Prolonged peroneal and tibial F waves. Prolonged H reflex bilaterally. Sensory responses could not be obtained bilaterally in the sural or superficial peroneal nerves. Needle EMG, all muscles tested in the lower limbs showed no evidence of denervation. Motor units of increased amplitude and duration noted bilaterally in the gastrocnemius and tibialis anterior. Electrodiagnostic impression: This is an abnormal study in the lower limbs. 1. Electrodiagnostic findings consistent with peripheral polyneuropathy, with motor and sensory nerve involvement. There is evidence of axonal loss. 2. No electrodiagnostic evidence is noted for lumbosacral radiculopathy.
== END | disposition home or self-care (01) ==
PROVIDERS: Visit Provider Orthopaedic Surgery
DX: G60.9 Hereditary and idiopathic neuropathy, unspecified (principal)
CPT/HCPCS: 95886; 95911

== ENCOUNTER → 2022-11-13 | Outpatient (CLI) | payer MEDICARE, OTHER, SELFPAY ==
[2022-11-13 09:33] LABS: AST(SGOT) 26 U/L (15-37); Alanine Aminotransfer ALT/SGPT 35 U/L (16-61); Albumin, Serum 3.9 g/dL (3.2-5.0); Alkaline Phosphatase 85 U/L (45-117); Bilirubin, Direct 0.13 mg/dL (0.00-0.30); Cholesterol 119 mg/dL (200); Globulin 3.5 g/dL (2.2-4.2); High Density Lipoprotein 53 mg/dL; Protein, Total 7.4 g/dL (6.4-8.2); Triglycerides 123 mg/dL; Very Low Density Lipoprotein 25 mg/dL (5-40)
== END | disposition home or self-care (01) ==
LOC: LAB 08:09
PROVIDERS: Referring Provider Internal Medicine Cardiovascular Disease; Visit Provider Internal Medicine Cardiovascular Disease
DX: E78.00 Pure hypercholesterolemia, unspecified (principal)
CPT/HCPCS: 36415; 80061; 80076

== ENCOUNTER → 2023-04-04 | Outpatient (CLI) | payer MEDICARE, OTHER, SELFPAY ==
[2023-04-04 08:27] LABS: Bacteria 0 SEEN /hpf (None Seen); Mucous, Urine 0 SEEN /hpf (<or=2+); Squamous Epithelial Cells - UA 0 SEEN /hpf (0-5); White Blood Cells 0 SEEN /hpf (0-5)
[2023-04-04 12:34] LABS: Color, Urine Yellow (Yellow); Glucose, Dipstick Normal (Normal); Ketone-Dipstick Negative (Negative); Leukocyte Esterase-Dipstick Negative /ul (Negative); Nitrite-Dipstick Negative (Negative); Occult Blood-Urine 250 /ul (Negative); Protein-Dipstick Negative (Negative); Specific Gravity, Urine 1.015 (1.002-1.030); Urine Bilirubin Dipstick Negative (Negative); Urine Clarity Clear (Clear); Urine Urobilinogen Normal (Normal)
[2023-04-04 12:51] LABS: Red Blood Cells-Urine 25-50 SEEN /hpf (0-5)
== END | disposition home or self-care (01) ==
LOC: LABSPEC 08:26
PROVIDERS: Visit Provider Family Medicine
DX: R31.9 Hematuria, unspecified (principal)
CPT/HCPCS: 81001

== ENCOUNTER → 2023-04-10 | Outpatient (CLI) | payer MEDICARE, OTHER, SELFPAY ==
--- NOTE | 2023-04-10 12:45 | US_ITS ---
INDICATION: occult blood in urine EXAMINATION: Ultrasound US Kidney(s) complete (eg, kidneys and bladder) TECHNIQUE: William scale and color doppler images were obtained of the kidneys. COMPARISON: None. FINDINGS: RIGHT KIDNEY: 10.52 x 5.85 x 5.69 cm. Cortical thickness is 1.36 cm.. There is no hydronephrosis. No shadowing calculus, focal lesion or perinephric collection is demonstrated. Well-defined 5.1 x 5.2 x 5.2 cm simple appearing cyst is noted at the midpole. A 3.7 x 3.7 x 4.4 mm hyperechogenicity without posterior acoustic shadowing is noted in the sinus fat at the midpole. LEFT KIDNEY: 10.64 x 5.72 x 5.09 cm. Cortical thickness is 1.53 cm.. There is no hydronephrosis. No shadowing calculus, focal lesion or perinephric collection is demonstrated. Well-defined 2.87 x 2.36 x 2.36 cm anechoic cyst with a possible partial internal septation noted at the anteromedial upper pole. A well-defined, simple appearing 1.39 x 1.04 x 1.14 cm cyst is seen at the anterolateral lower pole. The technologist was also measured a non-shadowing 2.9 x 2.5 x 3.1 mm mildly hyperechoic structure in the lower pole sinus fat. URINARY BLADDER: No acute abnormality. At the time of scanning, the bladder is 12.59 x 8.48 x 9.33 cm, corresponding to a volume of 521.8 mL. Post void volume was 120.2 mL. Anterior bladder wall thickness is 2.7 mm. Small volume debris is seen at the dependent aspect of the bladder. PROSTATE GLAND: 5.01 x 5.5 x 6.67 cm, corresponding to a volume of 90 mL. There are coarse calcifications within the prostate. A 1.0 x 7.3 x 13.6 mm hypoechoic cyst is also seen in the posterior dome of the prostate. US/Kidney and Bladder IMPRESSION: 1. Bilateral renal cortical cysts, as described. 2. Small, non-shadowing hyperechogenicities were noted in the sinus fat of each kidney. These are unlikely to represent stones, and no hydronephrosis seen. Small volume debris was noted in the dependent aspect of the urinary bladder, however. 3. Enlarged prostate gland. 1 cm cyst seen in the posterior dome of the prostate. 4. There is significant postvoid bladder residual. Electronically Signed: Phill Gonzalez MD at 16:33 EDT Reading Location ID and State: [id number] / Unknown , Service support ,
== END | disposition home or self-care (01) ==
LOC: US 12:44
PROVIDERS: PCP Family Medicine; Referring Provider Family Medicine; Visit Provider Family Medicine
DX: R31.9 Hematuria, unspecified (principal)
CPT/HCPCS: 76770

== ENCOUNTER → 2023-04-19 | Outpatient (CLI) | payer MEDICARE, OTHER, SELFPAY ==
--- NOTE | 2023-04-19 08:53 | ART_ITS ---
Reason For Study: Bi-lateral Claudication Procedure A bilateral lower extremity continuous wave Doppler with analog waveform analysis,segmental pressures,and ankle brachial indexes without exercise. Left Segmental Pressures Left brachial= 151mmHg. Left posterior tibial artery = >254mmHg. Left dorsalis pedis artery = >254mmHg. Left digit = 149 mmHg. The left posterior tibial artery waveforms are triphasic. The left dorsalis pedis waveforms are triphasic. Right Segmental Pressures Right brachial= 153mmHg. Right posterior tibial artery = 206mmHg. Right dorsalis pedis artery = 178mmHg. Right digit = 130 mmHg. The right posterior tibial artery waveforms are triphasic. The right dorsalis pedis waveforms are triphasic. Indices The right ankle brachial index by the posterior tibial artery is 1.35. The right ankle brachial index by the dorsalis pedis is 1.16. The right digital-brachial index is 0.85. The left ankle brachial index by the posterior tibial artery is N/C. The left ankle brachial index by the dorsalis pedis is N/C. The left digital-brachial index is 0.97. VL/Lower Ext Art Exam w/o Exercis Interpretation Summary Right CLARISSA 1.35, normal. TBI and Doppler/PVR waveforms of the right leg normal a t rest. Left CLARISSA not able to be obtained due to non-compressible vessels. TBI and Doppl er/PVR waveforms of the left leg normal at rest. Ordering Physician: Devyn Moe Referring Physician: Ian Moe M.D. Performed By: Emilio Sharpe RVT
== END | disposition home or self-care (01) ==
LOC: CVS 08:52
PROVIDERS: PCP Family Medicine; Referring Provider Family Medicine; Visit Provider Family Medicine
DX: I73.9 Peripheral vascular disease, unspecified (principal)
CPT/HCPCS: 93923

== ENCOUNTER → 2023-04-23 | Outpatient (CLI) | payer MEDICARE, OTHER, SELFPAY ==
[2023-04-23 14:19] LABS: PSA,Total- Diagnostic 5.06 ng/mL (0.0-4.0)
[2023-04-23 14:19] LABS: AST(SGOT) 37 U/L (15-37); Alanine Aminotransfer ALT/SGPT 35 U/L (16-61); Albumin, Serum 3.8 g/dL (3.2-5.0); Alkaline Phosphatase 74 U/L (45-117); Bilirubin, Direct 0.17 mg/dL (0.00-0.30); Cholesterol 107 mg/dL (200); Globulin 3.3 g/dL (2.2-4.2); High Density Lipoprotein 51 mg/dL; Protein, Total 7.1 g/dL (6.4-8.2); Triglycerides 89 mg/dL; Very Low Density Lipoprotein 18 mg/dL (5-40)
== END | disposition home or self-care (01) ==
LOC: BIMLAB 09:02
PROVIDERS: Nurse Practitioner Family; PCP Family Medicine; Referring Provider Urology; Visit Provider Urology
DX: R97.20 Elevated prostate specific antigen [PSA] (principal); E78.00 Pure hypercholesterolemia, unspecified
CPT/HCPCS: 36415; 80061; 80076; 84153

== ENCOUNTER → 2023-10-30 | Outpatient (CLI) | payer MEDICARE, OTHER, SELFPAY ==
[2023-10-30 11:39] LABS: AST(SGOT) 30 U/L (15-37); Alanine Aminotransfer ALT/SGPT 39 U/L (16-61); Albumin, Serum 3.9 g/dL (3.2-5.0); Alkaline Phosphatase 89 U/L (45-117); Bilirubin, Direct 0.15 mg/dL (0.00-0.30); Cholesterol 122 mg/dL (200); Globulin 3.3 g/dL (2.2-4.2); High Density Lipoprotein 48 mg/dL; Protein, Total 7.2 g/dL (6.4-8.2); Triglycerides 137 mg/dL; Very Low Density Lipoprotein 27 mg/dL (5-40)
[2023-10-30 14:45] LABS: PSA,Total- Diagnostic 2.57 ng/mL (0.0-4.0)
== END | disposition home or self-care (01) ==
PROVIDERS: PCP Family Medicine; Referring Provider Nurse Practitioner Family; Visit Provider Nurse Practitioner Family
DX: N40.1 Benign prostatic hyperplasia with lower urinary tract symptoms (principal); E78.00 Pure hypercholesterolemia, unspecified
CPT/HCPCS: 36415; 80061; 80076; 84153

== ENCOUNTER → 2024-11-03 | Outpatient (CLI) | payer MEDICARE, OTHER, SELFPAY ==
[2024-11-03 10:59] LABS: PSA,Total- Diagnostic 2.01 ng/mL (0.0-4.0)
[2024-11-03 11:01] LABS: AST(SGOT) 25 U/L (15-37); Alanine Aminotransfer ALT/SGPT 31 U/L (16-61); Albumin, Serum 3.7 g/dL (3.2-5.0); Alkaline Phosphatase 81 U/L (45-117); Bilirubin, Direct 0.19 mg/dL (0.00-0.30); Cholesterol 114 mg/dL (200); Globulin 3.4 g/dL (2.2-4.2); High Density Lipoprotein 60 mg/dL; Protein, Total 7.1 g/dL (6.4-8.2); Triglycerides 145 mg/dL; Very Low Density Lipoprotein 29 mg/dL (5-40)
== END | disposition home or self-care (01) ==
LOC: LAB 09:36
PROVIDERS: Nurse Practitioner Family; PCP Family Medicine; Referring Provider Urology; Visit Provider Urology
DX: R97.20 Elevated prostate specific antigen [PSA] (principal); E78.00 Pure hypercholesterolemia, unspecified
CPT/HCPCS: 36415; 80061; 80076; 84153

== ENCOUNTER → 2024-12-23 | Outpatient (CLI) | payer MEDICARE, OTHER, SELFPAY ==
--- NOTE | 2024-12-23 07:03 | ECHOD_ITS ---
Reason For Study Reason For Study: CDA/ASHD Procedure This was a 2D Doppler, Color Flow transthoracic echocardiogram. Exam performed in department. Left Ventricle Normal LV size. Mild concentric left ventricular hypertrophy. The left ventricular ejection fraction is 65 %. Stage 1 diastolic dysfunction. Right Ventricle Normal right ventricle. Atria The left and right atria are normal. Mitral Valve Trivial mitral valve insufficiency. Tricuspid Valve Trivial tricuspid valve insufficiency. Right ventricular systolic pressure estimated to be 39 mmHg. Aortic Valve Trisinus/trileaflet aortic valve. Trivial aortic valve insufficiency. Pulmonic Valve The pulmonic valve is not well visualized. Great Vessels Normal sized aortic root. Pericardium/Pleural No pericardial effusion. MMode/2D Measurements & Calculations LVIDd: 3.8 cm IVSd: 1.2 cm Ao root diam: 3.1 cm LVIDs: 2.7 cm LVPWd: 0.88 cm RVDd: 3.5 cm FS: 30.4 % LAV(MOD-bp): 26.9 ml LVAd ap4: 23.2 cm2 SV(MOD-sp4): 37.6 ml LAV(MOD-bp) Indexed: 14.8 ml/m2 LVLd ap4: 7.8 cm SI(MOD-sp4): 20.6 ml/m2 LAV(MOD-sp2): 28.3 ml EDV(MOD-sp4): 55.5 ml LAV(MOD-sp4): 22.4 ml EDV(sp4-el): 58.6 ml LVAs ap4: 11.6 cm2 LVLs ap4: 6.4 cm ESV(MOD-sp4): 17.9 ml ESV(sp4-el): 17.8 ml EF(MOD-sp4): 67.8 % EF(sp4-el): 69.7 % SV(sp4-el): 40.8 ml LA A4 area: 10.6 cm2 LA dimension(2D): 3.3 cm RA A4 area: 7.6 cm2 TAPSE: 2.2 cm Time Measurements MV dec time: 0.27 sec Doppler Measurements & Calculations MV E max artem: 62.3 cm/sec Lat Peak E' Artem: 8.7 cm/sec Med Peak E' Artem: 7.3 cm/sec MV A max artem: 81.4 cm/sec E/E' lat: 7.2 E/E' med: 8.6 MV E/A: 0.77 Ao V2 max: 113.2 cm/sec LV V1 max: 98.8 cm/sec MV dec slope: 233.9 cm/sec2 Ao max P.1 mmHg LV V1 max P.9 mmHg Ao V2 mean: 79.9 cm/sec LV V1 mean P.1 mmHg Ao mean P.9 mmHg LV V1 mean: 67.1 cm/sec Ao V2 VTI: 26.8 cm LV V1 VTI: 22.3 cm AV (velocity ratio): 0.83 PA V2 max: 108.7 cm/sec PI end-d artem: 121.9 cm/sec TR max artem: 293.9 cm/sec TR max P.6 mmHg ECHO/Echo Complete Interpretation Summary Mild concentric left ventricular hypertrophy. The left ventricular ejection fraction is 65 %. Stage 1 diastolic dysfunction. Right ventricular systolic pressure estimated to be 39 mmHg. Ordering Physician: Rosalie Shaver Referring Physician: Devyn Moe Performed By: Navya Lowry RDCS, RVT
--- NOTE | 2024-12-23 07:03 | ART_ITS ---
Reason For Study Reason For Study: Claudication Procedure A bilateral lower extremity continuous wave Doppler with analog waveform analysis,segmental pressures,and ankle brachial indexes without exercise. Left Segmental Pressures Left brachial= 148mmHg. Left posterior tibial artery = >254mmHg. Left dorsalis pedis artery = >254mmHg. Left digit = 130 mmHg. The left dorsalis pedis waveforms are triphasic. The left posterior tibial artery waveforms are triphasic. Right Segmental Pressures Right brachial= 151mmHg. Right posterior tibial artery = >254mmHg. Right dorsalis pedis artery = 205mmHg. Right digit = 144 mmHg. The right dorsalis pedis waveforms are triphasic. The right posterior tibial artery waveforms are triphasic. Indices The right ankle brachial index by the dorsalis pedis is 1.36. The right ankle brachial index by the posterior tibial artery is NC. The right digital-brachial index is 0.95. The left ankle brachial index by the dorsalis pedis is NC. The left ankle brachial index by the posterior tibial artery is NC. The left digital-brachial index is 0.86. VL/Lower Ext Art Exam w/o Exercis Interpretation Summary Right CLARISSA 1.36, normal. TBI and Doppler/PVR waveforms of the right leg normal a t rest. Left CLARISSA not able to be obtained due to non-compressible vessels. TBI and Doppl er/PVR waveforms of the left leg normal at rest. Ordering Physician: Rosalie Shaver Referring Physician: Ian Moe M.D. Performed By: Alicia Cha RVT
--- NOTE | 2024-12-25 12:06 | STRESSREP_ITS ---
Stress Test Report Date: 12/23/2024 Procedure: Pharmacologic stress nuclear imaging study Indications: Coronary artery disease Consent: Per the patient Procedure: The patient underwent pharmacologic (Regadenoson 0.4mg ) evaluation with a peak heart rate of 111 beats per minute (74%predicted maximal heart rate) and a peak blood pressure of 146/80 mmHg. The baseline ECG demonstrated sinus rhythm. The peak pharmacologic ECG no ischemic changes. There were no cardiac dysrhythmias pretest, during pharmacologic infusion, or recovery. There was no complaint of chest discomfort during pharmacologic infusion or recovery. The patient was injected with 11.9 millicuries of technetium 99m Cardiolite and subsequently rest SPECT Cardiolite nuclear imaging was obtained in the horizontal long, vertical long, and short axis views. The patient underwent pharmacologic (Regadenoson) evaluation. The patient was injected with 33.9 millicuries of technetium 99m Cardiolite and subsequently stress SPECT Cardiolite nuclear imaging was obtained in the horizontal long, vertical long, and short axis views. A gated Cardiolite study at peak stress was obtained. The examination was stopped secondary to completion of protocol. Rest and stress SPECT Cardiolite nuclear imaging status post realignment, normalization, and attenuation correction demonstrate a fixed anterior defect of mild intensity, suggestive of previous nontransmural infarct. There is end systolic thickening and brightening. The gated Cardiolite study demonstrates myocardial thickening and inward wall motion. The reported LVEF is 72%. Impression: 1. Pharmacologic (Regadenoson) evaluation 2. Peak pharmacologic ECG with no ischemic changes. 3. There were no cardiac dysrhythmias pretest, during pharmacologic infusion, or recovery. 5. Mildly reduced perfusion of the anterior wall at baseline as well as post pharmacological stress. Suggestive of previous nontransmural infarct with no significant collette-infarct ischemia. 6. The gated Cardiolite study reports an LVEF of 72%. This note was generated with [employer] software. It may contain incorrect words, spelling, and punctuation that were not noted in checking the note before signing.
== END | disposition home or self-care (01) ==
LOC: CVS 07:03
PROVIDERS: PCP Family Medicine; Referring Provider Internal Medicine Cardiovascular Disease; Visit Provider Internal Medicine Cardiovascular Disease
DX: I25.10 Atherosclerotic heart disease of native coronary artery without angina pectoris (principal); I10 Essential (primary) hypertension; E78.5 Hyperlipidemia, unspecified; R94.31 Abnormal electrocardiogram [ECG] [EKG]; I73.9 Peripheral vascular disease, unspecified
CPT/HCPCS: 78452; 93017; 93306; 93923; A9500; A4216; J2785

== ENCOUNTER → 2025-01-16 | Outpatient (CLI) | payer MEDICARE, OTHER, SELFPAY ==
--- NOTE | 2025-01-16 15:44 | CT_ITS ---
EXAM: CT Angiography Abdomen and Pelvis With Runoff to the Lower Extremities Without and With Intravenous Contrast CLINICAL INDICATION: ABNORMAL CLARISSA TECHNIQUE: Axial computed tomographic angiography images of the abdomen, pelvis and lower extremities without and with intravenous contrast. This CT exam was performed using one or more of the following dose reduction techniques: automated exposure control, adjustment of the mA and/or kV according to patient size, and/or use of iterative reconstruction technique. MIP reconstructed images were created and reviewed. COMPARISON: No relevant prior studies available. FINDINGS: VASCULATURE: AORTA: Scattered calcified atherosclerotic disease of the aorta without dissection or aneurysm. CELIAC TRUNK AND MESENTERIC ARTERIES: Patent celiac trunk, SMA and BARRIE. No occlusion or significant stenosis. RENAL ARTERIES: No acute findings. No occlusion or significant stenosis. RIGHT ILIAC ARTERIES: Scattered calcified atherosclerotic disease of the common iliac arteries, external iliac arteries, common femoral arteries, superficial femoral arteries, and popliteal arteries with varying degree of mild grade stenoses, bilaterally. RIGHT FEMORAL/POPLITEAL ARTERIES: See above. RIGHT CALF/FOOT ARTERIES: Scattered calcified atherosclerotic disease of the anterior tibial arteries, bilaterally with areas of no to minimal contrast opacification, suggesting severe grade stenoses. Scattered calcified atherosclerotic disease of the peroneal arteries, bilaterally with varying degrees of mild moderate grade stenoses. Scattered calcified atherosclerotic disease of the posterior tibial arteries, bilaterally with scattered areas of at least mild grade stenoses. LEFT ILIAC ARTERIES: See above. LEFT FEMORAL/POPLITEAL ARTERIES: See above. LEFT CALF/FOOT ARTERIES: See above. LUNG BASES: Unremarkable. No mass. No consolidation. ABDOMEN: LIVER: Hepatomegaly with fatty infiltration. GALLBLADDER AND BILE DUCTS: Unremarkable. No calcified stones. No ductal dilation. PANCREAS: Unremarkable. No ductal dilation. No mass. SPLEEN: Unremarkable. No splenomegaly. ADRENALS: Unremarkable. No mass. KIDNEYS AND URETERS: Bilateral nephrolithiasis without hydronephrosis. Simple bilateral renal cysts. STOMACH AND BOWEL: Constipation. Colonic diverticulosis without acute diverticulitis. No obstruction. PELVIS: APPENDIX: No findings to suggest acute appendicitis. BLADDER: Unremarkable. No stones. No mass. REPRODUCTIVE: Unremarkable as visualized. ABDOMEN, PELVIS and LOWER EXTREMITIES: INTRAPERITONEAL SPACE: Unremarkable. No significant fluid collection. No free air. BONES/JOINTS: No acute fracture. No dislocation. SOFT TISSUES: Bilateral inguinal hernias. LYMPH NODES: Unremarkable. No enlarged lymph nodes. CT/CTA Abd w/Runoff W/WO Contrast IMPRESSION: 1. Scattered calcified atherosclerotic disease of the anterior tibial arteries , bilaterally with areas of no to minimal contrast opacification, suggesting severe grade stenoses. 2. Scattered calcified atherosclerotic disease of the posterior tibial arterie s, bilaterally with scattered areas of at least mild grade stenoses. 3. Hepatomegaly with fatty infiltration. Reading Location: [id number]
== END | disposition home or self-care (01) ==
LOC: CT 15:43
PROVIDERS: PCP Family Medicine; Referring Provider Nurse Practitioner Family; Visit Provider Nurse Practitioner Family
DX: R94.31 Abnormal electrocardiogram [ECG] [EKG] (principal); I73.9 Peripheral vascular disease, unspecified; E78.5 Hyperlipidemia, unspecified; I10 Essential (primary) hypertension; I25.10 Atherosclerotic heart disease of native coronary artery without angina pectoris; E66.9 Obesity, unspecified; Z95.5 Presence of coronary angioplasty implant and graft
CPT/HCPCS: 75635; Q9967

== ENCOUNTER → 2025-04-13 | Outpatient (CLI) | payer MEDICARE, OTHER, SELFPAY ==
--- OUTSIDE RECORDS SUMMARY | 2025-04-13 06:53 | XMS RPT_ITS | CCD ---
Author Organization [facility]ini[facility] Care Team Providers Care Teacher Learning Disabled Name Role Phone Dr. Arline Arnold Primary Care Provider [phone] Dr. Arline Arnold Referring Provider Dr. Tevin Henry Attending Provider [phone] Dr. Praveen Griffith Attending Provider [phone] Dr. Jasiel Castillo Attending Provider [phone] Dr. Arline Arnold Primary Care Provider 1(12 21) Dr. Arline Arnold Referring Provider Dr. Praveen Griffith Attending Provider [phone] USHER, COURT USHER-C Sanjay Harris Attending Provider Dr. Arline Arnold Primary Care Provider 1(12 [phone]) Dr. Arline Arnold Referring Provider Dr. Devyn Moe Attending Provider Dr. Devyn Moe Primary Care Provider [phone] Dr. Kip Newberry Attending Provider [phone] Dr. Devyn Moe DO Primary Care Provider Dr. Warren Lomax MD Attending Provider [phone] Dr. Warren Lomax MD Referring Provider Alen COURT USHER-C, Sanjay Harris Other Provider Dr. Devyn Moe DO Referring Provider [phone] Dr. Rosalie Shaver MD Attending Provider Dr. Rosalie Shaver MD Referring Provider Coni MARIE, Dr. Shin Attending Provider [phone] Sivakumar MARIE, Dr. Wiggins Other Provider 1([facility])- 700 Satish Colon Attending Provider 1([facility])[phone] USHER-C, Sanjay H Attending Provider 1([facility])- [address] USHER-C, Sanjay H Referring Provider 1([facility])- 700 Abhi MCGARRY, Dr. Devyn Lorenz Attending Provider 1([facility] )-[phone] Shana Holley Attending Provider 1([facility])-[phone] Abhi MCGARRY, Dr. Devyn Lorenz Primary Care Provider Ioana Mojica Attending Provider 1([facility])-[phone] Jonathan MARIE, Dr. Weathers Attending Provider [phone] USHER, Sanjay H Referring Unavailable Brown, Devyn R Primary Care Unavailable Shana Silverman Attending Unavailable Ro[address] USHER, Sanjay H Consulting Unavailable DamiWarren Referring Unavailable Warren Lomax Attending Unavailable Brown, Devyn R Primary Care Unavailable Sivakumar, Rosalie Referring Unavailable Sivakumar, Rosalie Attending Unavailable Brown, Devyn R Primary Care Unavailable Roof COURT USHER, Sanjay H Referring Unavailable Roof COURT USHER, Sanjay H Attending Unavailable Brown, Devyn R Primary Care Unavailable Ioana Levi Referring Unavailable Ioana Levi Attending Unavailable Brown, Devyn R Primary Care Unavailable Sivakumar, Rosalie Referring Unavailable Kip Newberry Attending Unavailable Brown, Devyn R Primary Care Unavailable SivakumarRosalie Attending Unavailable Brown, Devyn R Primary Care Unavailable Sivakumar, Rosalie Consulting Unavailable Sivakumar, Rosalie Referring Unavailable Sivakumar, Rosalie Attending Unavailable Brown, Devyn R Primary Care Unavailable Brown, Devyn R Primary Care Unavailable Brown, Devyn R Referring Unavailable Brown, Devyn R Attending Unavailable Ioana Levi Attending Unavailable Brown, Devyn R Primary Care Unavailable Brown, Devyn R Referring Unavailable Brown, Devyn R Primary Care Unavailable Jasiel Castillo Attending Unavailable Sivakumar Rosalie Attending Unavailable Brown, Devyn R Referring Unavailable Brown, Devyn R Primary Care Unavailable Brown, Devyn R Primary Care Unavailable Brown, Devyn R Referring Unavailable Satish Colon Attending Unavailable Brown, Devyn R Primary Care Unavailable Brown, Devyn R Referring Unavailable Devyn Moe Attending Unavailable Medications Current Medications Medication Drug Class(es) Dates Sig (Normalized) Sig (Original) amLODIPine 5 mg oral tablet (6 sources) Dihydropyridine Calcium Channel Gage Start: 11-20-2024 take 1 tablet by mouth once daily Amlodipine 5 mg tablet Active 5 mg PO daily November 20, 2024 1:00am aspirin 81 mg delayed release oral tablet (13 sources) Platelet Aggregation Inhibitor, Nonsteroidal Anti-inflammatory Drug Start: 03-31-2019 take 1 tablet by mouth once daily Aspirin 81 MG tablet Active 81 mg PO DAILY@0800 March 31, 2019 12:00am atorvastatin 20 mg oral tablet (20 sources) HMG-CoA Reductase Inhibitor Start: 11-20-2024 take 1 tablet by mouth at bedtime Atorvastatin 20 mg tablet Active 20 mg PO AT BEDTIME November 20, 2024 1:00am Start: 01-09-2022 End: 11-20-2024 take 1 tablet by mouth at bedtime Atorvastatin 40 mg tablet Discontinued 40 mg PO AT BEDTIME December 05, 2023 8:41am November 20, 2024 5:04pm Start: 08-16-2021 End: 01-09-2022 Atorvastatin 80 mg tablet Discontinued 40 mg PO AT BEDTIME August 16, 2021 2:50pm January 09, 2022 6:41pm Start: 08-16-2021 End: 01-09-2022 take 40 mg by mouth at bedtime Atorvastatin Discontinu ed 40 MG PO AT BEDTIME August 16, 2021 2:50pm January 09, 2022 6:41pm Start: 03-31-2019 End: 08-16-2021 take 1 tablet by mouth at bedtime Atorvastatin 80 mg tablet Discontinued 80 mg PO AT BEDTIME February 08, 2021 5:15pm August 16, 2021 2:50pm Cranberry (13 sources) Non-Standardized Food Allergenic Extract, Non-Standardized Plant Allergenic Extract Start: 05-11-2021 take 1 capsule by mouth once daily at mealtime Cranberry 500 mg capsule Active 500 mg PO DAILY May 11, 2021 12:00am administer with meals Start: 05-11-2021 take 500 mg by mouth once daily at mealtime Cranberry Active 500 MG PO DAILY May 10, 2021 11:00pm administer with meals Start: 05-11-2021 take 500 mg by mouth once daily at mealtime Cranberry Active 500 MG PO DAILY May 11, 2021 12:00am administer with meals finasteride 5 mg oral tablet (6 sources) 5-alpha Reductase Inhibitor Start: 11-08-2023 take 1 tablet by mouth once daily Finasteride 5 mg tablet Active 5 mg PO DAILY November 08, 2023 1:00am ibuprofen 200 mg oral tablet (11 sources) Nonsteroidal Anti-inflammatory Drug Start: 06-28-2022 take 1 tablet by mouth every six hours as needed Ibuprofen 200 mg tablet Active 200 mg PO EVERY 6 HOURS as needed June 28, 2022 12:00am permethrin 50 mg/ml topical cream (5 sources) Pyrethroid Start: 01-14-2025 Permethrin 5 % cream Active 1 NMA TOPICAL Q14D 60 January 14, 2025 12:00am apply 1/2 tube as instructed, leaving on for 8-14 hours before washing off; repeat in 10-12 days Completed/Discontinued Medications Medication Drug Class(es) Dates Sig (Normalized) Sig (Original) losartan potassium 25 mg oral tablet (20 sources) Angiotensin 2 Receptor Gage Start: 03-31-2019 End: 01-15-2025 take 1 tablet by mouth once daily Losartan 25 mg tablet Discontinued 25 mg PO DAILY December 05, 2023 8:41am January 15, 2025 11:14am Start: 03-29-2019 End: 03-31-2019 Losartan 50 MG tablet Discon tinued 50 mg PO March 29, 2019 12:00am March 31, 2019 12:03pm metoprolol tartrate 25 mg oral tablet (20 sources) beta-Adrenergic Gage Start: 01-09-2022 End: 01-10-2022 Metoprolol Tartrate 25 mg tablet Discontinued 12.5 mg PO TWICE A DAY 90 January 09, 2022 6:40pm January 10, 2022 11:19am Start: 01-09-2022 End: 01-10-2022 take 12.5 mg by mouth twice daily Metoprolol Tartrate Discontinued 12.5 MG PO TWICE A DAY 90 January 09, 2022 6:40pm January 10, 2022 11:19am Start: 08-16-2021 End: 01-15-2025 take 1 tablet by mouth twice daily Metoprolol Tartrate 25 mg tablet Discontinued 25 mg PO TWICE A DAY 180 December 05, 2023 8:41am January 15, 2025 11:14am Start: 03-31-2019 End: 08-16-2021 take 1 tablet by mouth twice daily Metoprolol Tartrate 50 mg tablet Discontinued 50 mg PO TWICE A DAY 180 February 08, 2021 5:15pm August 16, 2021 2:45pm ticagrelor 90 mg oral tablet (20 sources) Start: 03-31-2019 End: 01-09-2022 take 1 tablet by mouth twice daily Ticagrelor 90 mg tablet Discontinued 90 mg PO TWICE A DAY 180 February 08, 2021 5:15pm August 16, 2021 2:45pm Problems Active Problems Problem Classification Problem Date Documented Date Episodic/Chronic Acute myocardial infarction (13 sources) Myocardial infarction; Translations: [Non-ST elevation (NSTEMI) myocardial infarction] 05-06-2019 Chronic Coronary atherosclerosis and other heart disease (20 sources) Coronary atherosclerosis; Translations: [Atherosclerotic heart disease of [place] coronary artery without angina pectoris] Onset: 5 Chronic Comment on above: PTCA/BETTINA to prox Jeri g #1 03/30/19; Disorders of lipid metabolism (20 sources) Hyperlipidemia; Translations: [Hyperlipidemia, unspecified] Onset: Chronic Diverticulosis and diverticulitis (16 sources) Diverticular disease; Translations: [Diverticulosis of intestine, part unspecified, without perforation or abscess without bleeding] 04-15-2019 Chronic E Codes: Natural/environment (10 sources) Insect bite - wound; Translations: [Bitten or stung by nonvenomous insect and other nonvenomous arthropods, initial encounter] 02-03-2025 Episodic Essential hypertension (20 sources) Essential hypertension; Translations: [Essential (primary) hypertension] Onset: Chronic Genitourinary symptoms and ill-defined conditions (12 sources) Blood in urine; Translations: [Hematuria, unspecified] 04-03-2023 Episodic Nonspecific chest pain (12 sources) Chest pain; Translations: [Chest pain, unspecified] 06-23-2022 Episodic Other infections; including parasitic (10 sources) 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; Translations: [Infestation, unspecified] 01-14-2025 Episodic Other nervous system disorders (11 sources) Idiopathic peripheral neuropathy; Translations: [Hereditary and idiopathic neuropathy, unspecified] 06-28-2022 Chronic Other nervous system disorders (5 sources) Hereditary and idiopathic neuropathy, unspecified; Translations: [Unspecified hereditary and idiopathic peripheral neuropathy] Chronic Other nutritional; endocrine; and metabolic disorders (13 sources) Obese class I; Translations: [Obesity, unspecified] 04-15-2019 Chronic Other nutritional; endocrine; and metabolic disorders (13 sources) Hypercalcemia; Translations: [Hypercalcemia] 04-15-2019 Chronic Other nutritional; endocrine; and metabolic disorders (3 sources) Hypercalcemia; Translations: [Hypercalcemia] 04-03-2023 Chronic Other nutritional; endocrine; and metabolic disorders (3 sources) Obesity, unspecified; Translations: [Obesity, unspecified] 04-03-2023 Chronic Other screening for suspected conditions (not mental disorders or infectious disease) (18 sources) Electrocardiogram abnormal; Translations: [Abnormal electrocardiogram [ECG] [EKG]] Onset: 5 03-29-2019 Episodic Peripheral and visceral atherosclerosis (20 sources) Peripheral vascular disease; Translations: [Peripheral vascular disease, unspecified] Onset: 5 04-16-2023 Chronic Spondylosis; intervertebral disc disorders; other back problems (20 sources) Spinal stenosis of lumbar region; Translations: [Spinal stenosis, lumbar region without neurogenic claudication] Onset: 5 Episodic Unclassified (3 sources) M48.062 - Spinal stenosis, lumbar region with neurogenic claudication Unclassified (1 source) Other intervertebral disc degeneration, lumbar region with discogenic back pain and lower extremity pain; Translations: [Other intervertebral disc degeneration, lumbar region with discogenic back pain and lower extremity pain] Onset: 5 Unclassified (1 source) Low back pain, unspecified; Translations: [Low back pain, unspecified] Onset: 5 Past or Other Problems Problem Classification Problem Date Documented Da te Episodic/Chronic Coronary atherosclerosis and other heart disease (20 sources) Stented coronary artery; Translations: [Presence of coronary angioplasty implant and graft] Onset: 03-24-2019 06-15-2022 Episodic Comment on above: PTCA/BETTINA to prox Jeri g #1 03/30/19 Results Test Name Value Interpretation Reference Range Facility L/S Spine Min 4 Viewson 02-22 L/S Spine Min 4 Views [facility] Imaging Services [address] [place], [place] [address] L/S Spine Min 4 Views MR#: [id number] Acct: [id number] Name: EDE DE LUNA Rep #: [id number] : 1955 M 69 From: Yunior Staples MD PCP: Dr. Devyn Moe, Status: DEP AMB Study: L/S Spine Min 4 Views Date of Exam: 03/06/25 Exam# [id number] Ordering Dr: Ioana Levi EXAM: XR Lumbosacral Spine, 2 or 3 Views CLINICAL INDICATION: CHRONIC PAIN TECHNIQUE: Frontal and lateral views of the lumbar spine and sacrum. COMPARISON: No relevant prior studies available. FINDINGS: VERTEBRAE: Moderate to severe endplate degenerative changes, disc disease, anterior spurring and facet arthropathy of L3-S1. No acute fracture. Normal alignment. SACRUM/COCCYX: Unremarkable as visualized. No acute fracture. DISC SPACES: No acute findings. No significant narrowing. SOFT TISSUES: Unremarkable. VASCULATURE: Scattered calcified atherosclerotic disease of aorta. RAD/L/S Spine Min 4 Views IMPRESSION: Degenerative changes as above. Reading Location: [facility] CC: CYNDY Little; Dr. 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: Signed Normal [facility] Orthopedic Visit Reporton Orthopedic Visit Report [facility] [address] [place] [address] [address] [place] [address] OFFICE VISIT Date of Service: 03/06/25 MR#: [id number] Acct: [id number] Name: EDE DE LUNA Rep #: [id number] : 1955 Provider: CYNDY Little Age/Sex: 69/M Location: [facility] [place] Status: Signed Intake Vital Signs 02/18/25 15:16 Height 5 ft 4 in Weight: 172 lb BMI 29.5 BP 134/78 H Blood Pressure Location Lt brachial Position Sitting Respiration 16 Pulse 70 Pulse Source Monitor Temp 98 F Temp Source Temporal Pulse Oximetry (%) 98 Oxygen Delivery Method room air Intake Visit Reasons: LUMBAR SPINE Chief Complaint: lumbar spine Is patient in pain?: Yes (low back ) Pain scale (1-10): 3 Allergies No Known Allergies Allergy (Verified 03/06/25 10:52) Medications ???Medication ???Instructions ???Recorded ???Confirmed ???Type aspirin 81 mg tablet,delayed 81 mg PO DAILY@0800 03/31/1902/18 Rx release cranberry 500 mg capsule 500 mg PO DAILY 05/11/21 02/18/25 History ibuprofen 200 mg tablet 200 mg PO Q6H PRN 06/28/22 5 History finasteride 5 mg tablet 5 mg PO DAILY 11/08/23 02/18/25 Hi story amlodipine 5 mg tablet 5 mg PO QDAY #90 tabs 11/20/24 Rx atorvastatin 20 mg tablet 20 mg PO QHS #90 tabs 11/20/24 Rx permethrin 5 % topical cream 1 applic topical Q14D 2 doses #60 01/14/25 02/18/25 Rx grams losartan 25 mg tablet 25 mg PO DAILY #90 TABLETS 5 02/18/25 Rx metoprolol tartrate 25 mg tablet 25 mg PO BID #180 TABLETS 01/15/25 02/18/25 Rx Have you fallen in the past year?: No PFSH Medical History 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 Hyperlipidemia Presence of stent in coronary artery ( 03/30/19) Old myocardial infarction Hx of non-ST elevation myocardial infarction (NSTEMI) Essential (primary) hypertension Atherosclerosis of [place] coronary artery of [place] heart without angina pectoris NSTEMI (non-ST elevated myocardial infarction) Hypercalcemia Diverticulosis Obesity (BMI 30.0-34.9) Surgical History History of cataract surgery Presence of coronary angioplasty implant and graft ( 03/30/19) Family History Father Valvular heart disease Congenital CAD (coronary artery disease) Stenting in late 60s Mother Cardiac pacemaker in situ Social History Smoking Status: Never smoker HPI LUMBAR SPINE Chief Complaint: lumbar spine Details: This documentation accurately reflects the service provided and the decisions made by me, CYNDY Little 03/06/25 1036. Part of today???s visit was documented by [ ], acting as scribe. EDE DE LUNA is a 69 year old M here today for lumbar spine. Pt. was previously seen by Dr. Griffith after having MRI for low back pain and bilateral feet numbness and tingling. Pt. states he was not ready for surgery at that time. Since then he had been experiencing bilateral feet coldness. He was sent for testing by his heart doctor to check his circulation. Pt states they told him his circulation is good to his BLE. He is back because his numbness and tingling is worsening. He states he is having numbness in his bilateral calves with the left being worse and believes these symptoms are coming from his low back. He states his low back pain rates 3/10. He states it is an achy pain equal across but worse on the right at times. He states when he stands too long the left foot and calf numbness worsens and he feels like his leg is heavy, dragging and he has balance issues. Calf and foot numbness and whole foot numbness and tingling left side worse than right. Walking distance has decreased. He can walk 200 feet standing also increases the pain, also has back pain. No injections no surgeries. No diabetes, stent in heart sees cardiology, no blood thinners. No abdominal surgeries. No cane or walker. Leaning on a cart does help some with the pain. No PT. He has seen Dr. Griffith in the past who discussed surgery however he was not ready at that time. He says that he occasionally gets an anal leakage over the last year which is not a consistent issue. Denies perianal numbness. Ortho Exam General General: Yes no acute distress Neurologic: Yes alert and Yes oriented x3 Spine SPINE TESTING CERVICAL THORACIC LUMBAR Musculoskeletal Strength 0=absent - 5=normal Details: Neurological exam of the lower extremities shows 5x5 power. Normal sensations across all dermatomes. No hyperreflexia. No midline or paraspinal tenderness. Coding Level of Care Code Off vis,est,level 3 Diagnoses Lumbar stenosis with neurogenic claudication M48.062 (more content not included)... Normal [facility] Internal Medicine Office Vis iton 02-18-2025 Internal Medicine Office Visit [facility] [address] [place], [place] [address] OFFICE VISIT Date of Service: 02/18/25 MR#: [id number] Acct: [id number] Name: EDE DE LUNA Rep #: [id number] : 1955 Provider: Dr. 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 Accompanied by: Is patient in pain?: No Allergies No Known Allergies Allergy (Verified 02/18/25 15:15) Medications ???Medication ???Instructions ???Recorded ???Confirmed ???Type aspirin 81 mg tablet,delayed 81 mg PO DAILY@0800 03/31/1902/18 Rx release cranberry 500 mg capsule 500 mg PO DAILY 05/11/21 02/18/25 History ibuprofen 200 mg tablet 200 mg PO Q6H PRN 06/28/22 5 History finasteride 5 mg tablet 5 mg PO DAILY 11/08/23 02/18/25 Hi story amlodipine 5 mg tablet 5 mg PO QDAY #90 tabs 11/20/24 Rx atorvastatin 20 mg tablet 20 mg PO QHS #90 tabs 11/20/24 Rx permethrin 5 % topical cream 1 applic topical Q14D 2 doses #60 01/14/25 02/18/25 Rx grams losartan 25 mg tablet 25 mg PO DAILY #90 TABLETS 5 02/18/25 Rx metoprolol tartrate 25 mg tablet 25 mg PO BID #180 TABLETS 01/15/25 02/18/25 Rx Have you fallen in the past year?: No Nurse's Note: Had been seen by vascular saw Dr. Saldana and was advised not a vascular issue to see ortho or neurology. Pt came back to figure out where to go. Pt states it was previously discussed that it could be his back if nothing was found in the legs. Pt states he saw Dr. Griffith 08/2022 was dx'd w/ Spinal stenosis and neuropathy. Pt wants to know your advice on what to do next. Pt states that the issues w/ the feet are numb and tingly they are not painful, he has issues w/ walking due to this. Pt states the feet are the worst. He has some loss of control when walking. Pt states it is slowly getting worse. 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 Hyperlipidemia Presence of stent in coronary artery ( 03/30/19) Old myocardial infarction Hx of non-ST elevation myocardial infarction (NSTEMI) Essential (primary) hypertension Atherosclerosis of [place] coronary artery of [place] heart without angina pectoris NSTEMI (non-ST elevated myocardial infarction) Hypercalcemia Diverticulosis Obesity (BMI 30.0-34.9) Surgical History History of cataract surgery Presence of coronary angioplasty implant and graft ( 03/30/19) Family History Father Valvular heart disease Congenital CAD (coronary artery disease) Stenting in late 60s Mother Cardiac pacemaker in situ Social History Smoking Status: Never smoker [facility] HPI Details: EDE DE LUNA, is a 69 M who presents to the office today for discussion of his leg pain. He had seen a colorman who had ordered some peripheral vascular studies. It was suspected that he had peripheral artery disease but on closer examination of the studies by the peripheral vascular specialist it was decided that the arteries are patent and that was not the cause of his problem. He has an MRI that shows severe spinal stenosis of the L4-L5 level and had seen a spinal surgery in years ago who did not think his symptoms were bad enough to require surgery. Has had progressive leg pain with ambulation and weakness of increased significantly. ROS Const Constitutional: No body ache, chills, excessive sweating, fatigue, fever(s), frequent falls, headache(s), snoring, weakness, sleep problems or change in appetite Eyes Eyes: No blurry vision, change in vision, eye pain or Light sensitivity ENT ENT: No abnormal hearing, ear or mastoid pain, tinnitus, nasal congestion, headache(s), neck pain or sore throat Resp Respiratory: No cough, shortness of breath, snoring or wheezing Cardio Cardiology: No chest pain at rest, chest pain with exertion, excessive sweating, shortness of breath, dyspnea on exertion, lightheadedness, orthopnea or palpitations Gastro GI: No abdominal pain, change in bowel habits, constipation, cramping, diarrhea, nausea/dyspepsia or vomiting Genitourinary Male: No burning urination, painful urination, urinary in (more content not included)... Normal [facility] MR/BMSHugo 02-11-2025 MR/BMS.HAKEEM [facility] Vascular Surgery [address] [facility] [facility] [place] [address] OFFICE VISIT Date of Service: 02/11/25 MR#: [id number] Acct: [id number] Name: EDE DE LUNA Rep #: [id number] : 1955 Provider: CYNDY Mchugh Age/Sex: 69/M Location: [facility] Status: Signed Intake Vital Signs 01/14/25 13:08 02/03/25 10:54 02/11/25 13:10 Height 5 ft 4 in 5 ft 4 in Weight: 169 lb 2 oz 169 lb 8 oz 170 lb BMI 29.0 29.0 BP 122/74 H 130/80 H 147/80 H Blood Pressure Location Lt brachial Rt brachial Position Sitting Sitting Sitting Respiration 16 18 Pulse 71 70 58 L Pulse Source Monitor Monitor Temp 98.8 F 97 F L 98.2 F Temp Source Oral Temporal Temporal Pulse Oximetry (%) 97 96 97 Oxygen Delivery Method room air room air room air Intake Visit Reasons: Peripheral vascular disease Is patient in pain?: Yes Allergies No Known Allergies Allergy (Verified 02/11/25 13:10) Medications ???Medication ???Instructions ???Recorded ???Confirmed ???Type aspirin 81 mg tablet,delayed 81 mg PO DAILY@0800 03/31/1902/11 Rx release cranberry 500 mg capsule 500 mg PO DAILY 05/11/21 02/11/25 History ibuprofen 200 mg tablet 200 mg PO Q6H PRN 06/28/22 5 History finasteride 5 mg tablet 5 mg PO DAILY 11/08/23 02/11/25 Hi story amlodipine 5 mg tablet 5 mg PO QDAY #90 tabs 11/20/24 Rx atorvastatin 20 mg tablet 20 mg PO QHS #90 tabs 11/20/24 Rx permethrin 5 % topical cream 1 applic topical Q14D 2 doses #60 01/14/25 02/11/25 Rx grams losartan 25 mg tablet 25 mg PO DAILY #90 TABLETS 5 02/11/25 Rx metoprolol tartrate 25 mg tablet 25 mg PO BID #180 TABLETS 01/15/25 02/11/25 Rx Have you fallen in the past year?: No PFSH Medical History 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 Hyperlipidemia Presence of stent in coronary artery ( 03/30/19) Old myocardial infarction Hx of non-ST elevation myocardial infarction (NSTEMI) Essential (primary) hypertension Atherosclerosis of [place] coronary artery of [place] heart without angina pectoris NSTEMI (non-ST elevated myocardial infarction) Hypercalcemia Diverticulosis Obesity (BMI 30.0-34.9) Surgical History History of cataract surgery Presence of coronary angioplasty implant and graft ( 03/30/19) Family History Father Valvular heart disease Congenital CAD (coronary artery disease) Stenting in late 60s Mother Cardiac pacemaker in situ Social History Smoking Status: Never smoker HPI HPI HPI: EDE DE LUNA, is a 69 M who presents to the office today for evaluation of PAD/claudication as [facility]. He complains of bilateral foot numbness up to the ankle which is present all the time and not necessarily worse with activity. He has also felt his feet are getting cold easily; recalls a few episodes of 1 toe on each foot become cyanotic in appearance after being outside in the cold rain, improved upon rewarming and reports his L great toe has intermittently had cyanotic discoloration following frostbite as a child. His feet often generally a bit cool though he has noticed this less now that outside temperatures are warmer. He has also noticed some calf tightness/swollen feeling which is sometimes worse with activity or at the end of the day, after consideration he thinks he has noticed this mostly since starting the amlodipine. He does not have any wounds or history of nonhealing wounds. He is not diabetic. He has never smoked. 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 He has significant known lumbar spine disease and he does have significant chronic back pain which has been worsening over the last several months to a year. He reports that typically what limits his activity is his back pain and not his lower extremity symptoms. It is getting to where he can only walk about 200 feet before his back pain forces him to stop and rest. His back pain is present constantly at rest but worse with ambulation. He reports that theyin prior consultation with Dr. Griffith did not feel that his spine disease was the source of his foot numbness so he also had nerve testing a couple years ago that showed idiopathic peripheral neuropathy as well. He has not seen a quality control specialist in a couple years, he has not seen a neurologist. ROS General General: No weight change, appetite, fatigue, colon cancer, breast cancer or weakness HEENT HEENT: Yes eye surgery; No difficulty swallowing, eye injury, swollen glands or hoarseness Endo Endocrine: Yes heat intolerance and cold intolerance; No thyroid disease, diabetes mellitus, thyroid c (more content not included)... Normal [facility] Internal Medicine Office Vis felix 02-03-2025 Internal Medicine Office Visit [facility] [address] [place], [place] [address] OFFICE VISIT Date of Service: 02/03/25 MR#: [id number] Acct: [id number] Name: EDE DE LUNA Rep #: [id number] : 1955 Provider: Dr. Devyn Lorenz Br own, DO Age/Sex: 69/M Location: [facility] Status: Signed Intake Vital Signs 11/20/24 09:13 01/14/25 13:08 02/03/25 10:54 Height 5 ft 4 in 5 ft 4 in 5 ft 4 in Weight: 169 lb 8 oz BMI 29.0 BP 130/80 H Blood Pressure Location Lt brachial Position Sitting Respiration 16 Pulse 70 Pulse Source Monitor Temp 97 F L Temp Source Temporal Pulse Oximetry (%) 96 Oxygen Delivery Method room air Intake Visit Reasons: SPOTS ON ARM Chief Complaint: left arm bug bites? Farm Mechanic Required: No Accompanied by: Self Is patient in pain?: No Allergies No Known Allergies Allergy (Verified 02/03/25 10:50) Medications ???Medication ???Instructions ???Recorded ???Confirmed ???Type aspirin 81 mg tablet,delayed 81 mg PO DAILY@0800 03/31/1902/03 Rx release cranberry 500 mg capsule 500 mg PO DAILY 05/11/21 02/03/25 History ibuprofen 200 mg tablet 200 mg PO Q6H PRN 06/28/22 5 History finasteride 5 mg tablet 5 mg PO DAILY 11/08/23 02/03/25 Hi story amlodipine 5 mg tablet 5 mg PO QDAY #90 tabs 11/20/24 Rx atorvastatin 20 mg tablet 20 mg PO QHS #90 tabs 11/20/24 Rx permethrin 5 % topical cream 1 applic topical Q14D 2 doses #60 01/14/25 02/03/25 Rx grams losartan 25 mg tablet 25 mg PO DAILY #90 TABLETS 5 02/03/25 Rx metoprolol tartrate 25 mg tablet 25 mg PO BID #180 TABLETS 01/15/25 02/03/25 Rx Have you fallen in the past year?: No PFSH Medical History 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 Hyperlipidemia Presence of stent in coronary artery ( 03/30/19) Old myocardial infarction Hx of non-ST elevation myocardial infarction (NSTEMI) Essential (primary) hypertension Atherosclerosis of [place] coronary artery of [place] heart without angina pectoris NSTEMI (non-ST elevated myocardial infarction) Hypercalcemia Diverticulosis Obesity (BMI 30.0-34.9) Surgical History History of cataract surgery Presence of coronary angioplasty implant and graft ( 03/30/19) Family History Father Valvular heart disease Congenital CAD (coronary artery disease) Stenting in late 60s Mother Cardiac pacemaker in situ Social History Smoking Status: Never smoker HPI HPI Chief Complaint: left arm bug bites? Details: EDE DE LUNA, is a 69 M who presents to the office today for evaluation of bug bites in the left arm. This [facility] and they were thought to be mite bites. To me the pattern looks more like a crawling insect bite that crawled up the arm and bit in the linear pattern. What ever they are almost completely resolved and really do not bother him much. He did want to talk with his upcoming visit on his peripheral vascular disease. ROS Const Constitutional: No body ache, excessive sweating, fatigue, fever(s), frequent falls, headache(s), snoring, weakness, weight change, sleep problems or change in appetite Eyes Eyes: No blurry vision, change in vision, eye pain or Light sensitivity ENT ENT: No abnormal hearing, ear or mastoid pain, tinnitus, nasal congestion, headache(s), neck pain or sore throat Resp Respiratory: No cough, shortness of breath, snoring or wheezing Cardio Cardiology: No chest pain at rest, chest pain with exertion, excessive sweating, shortness of breath, dyspnea on exertion, lightheadedness, orthopnea or palpitations Gastro GI: No abdominal pain, change in bowel habits, constipation, cramping, diarrhea, nausea/dyspepsia or vomiting Genitourinary Male: No burning urination, painful urination, urinary incontinence, urinary frequency or blood in urine Musc Musculoskeletal: No abnormal gait, joint pain, back pain, limited range of motion, neck pain, numbness, stiffness, tingling or Arthritis Skin Skin: No dry skin, redness, lesions, itchy eyes, rash or wounds Neuro Neurology: No abnormal gait, abnormal hearing, abnormal speech, dizziness, weakness, frequent falls, headache(s), memory loss, numbness or tingling Psych Psychiatric: No anxiety, No change in appetite, No depression, No memory loss and No Thoughts of harming yourself/Others Endo Endocrine: No cold intolerance, excessive sweating, fatigue, flushing, heat intolerance, increased thirst/drinking, increased hunger or weight change Aller/Imm Allergy/Immunologic : No itchy eyes, seasonal allergy symptoms, hives or wheezing Alex/Lymp Hematologic/L (more content not included)... Normal [facility] CTA Abd w/Runoff W/WO Contra ston 01-16-2025 CTA Abd w/Runoff W/WO Contrast [facility] Imaging Services [address] [place], [place] [address] CTA Abd w/Runoff W/WO Contrast MR#: [id number] Acct: [id number] Name: EDE DE LUNA Rep #: [id number] : 1955 M 69 From: Yunior Staples MD PCP: Dr. Devyn Moe, DO Status: REG CLI Study: CTA Abd w/Runoff W/WO Contrast Date of Exam: 0 01/16/25 Exam# [id number] Ordering Dr: Sanjay Lowry COURT [facility] US[facility]C EXAM: CT Angiography Abdomen and Pelvis With Runoff to the Lower Extremities Without and With Intravenous Contrast CLINICAL INDICATION: ABNORMAL CLARISSA TECHNIQUE: Axial computed tomographic angiography images of the abdomen, pelvis and lower extremities without and with intravenous contrast. This CT exam was performed using one or more of the following dose reduction techniques: automated exposure control, adjustment of the mA and/or kV according to patient size, and/or use of iterative reconstruction technique. MIP reconstructed images were created and reviewed. COMPARISON: No relevant prior studies available. FINDINGS: VASCULATURE: AORTA: Scattered calcified atherosclerotic disease of the aorta without dissection or aneurysm. CELIAC TRUNK AND MESENTERIC ARTERIES: Patent celiac trunk, SMA and BARRIE. No occlusion or significant stenosis. RENAL ARTERIES: No acute findings. No occlusion or significant stenosis. RIGHT ILIAC ARTERIES: Scattered calcified atherosclerotic disease of the common iliac arteries, external iliac arteries, common femoral arteries, superficial femoral arteries, and popliteal arteries with varying degree of mild grade stenoses, bilaterally. RIGHT FEMORAL/POPLITEAL ARTERIES: See above. RIGHT CALF/FOOT ARTERIES: Scattered calcified atherosclerotic disease of the anterior tibial arteries, bilaterally with areas of no to minimal contrast opacification, suggesting severe grade stenoses. Scattered calcified atherosclerotic disease of the peroneal arteries, bilaterally with varying degrees of mild moderate grade stenoses. Scattered calcified atherosclerotic disease of the posterior tibial arteries, bilaterally with scattered areas of at least mild grade stenoses. LEFT ILIAC ARTERIES: See above. LEFT FEMORAL/POPLITEAL ARTERIES: See above. LEFT CALF/FOOT ARTERIES: See above. LUNG BASES: Unremarkable. No mass. No consolidation. ABDOMEN: LIVER: Hepatomegaly with fatty infiltration. GALLBLADDER AND BILE DUCTS: Unremarkable. No calcified stones. No ductal dilation. PANCREAS: Unremarkable. No ductal dilation. No mass. SPLEEN: Unremarkable. No splenomegaly. ADRENALS: Unremarkable. No mass. KIDNEYS AND URETERS: Bilateral nephrolithiasis without hydronephrosis. Simple bilateral renal cysts. STOMACH AND BOWEL: Constipation. Colonic diverticulosis without acute diverticulitis. No obstruction. PELVIS: APPENDIX: No findings to suggest acute appendicitis. BLADDER: Unremarkable. No stones. No mass. REPRODUCTIVE: Unremarkable as visualized. ABDOMEN, PELVIS and LOWER EXTREMITIES: INTRAPERITONEAL SPACE: Unremarkable. No significant fluid collection. No free air. BONES/JOINTS: No acute fracture. No dislocation. SOFT TISSUES: Bilateral inguinal hernias. LYMPH NODES: Unremarkable. No enlarged lymph nodes. CT/CTA Abd w/Runoff W/WO Contrast IMPRESSION: 1. Scattered calcified atherosclerotic disease of the anterior tibial arteries, bilaterally with areas of no to minimal contrast opacification, suggesting severe grade stenoses. 2. Scattered calcified atherosclerotic disease of the posterior tibial arteries, bilaterally with scattered areas of at least mild grade stenoses. 3. Hepatomegaly with fatty infiltration. Reading Location: [facility] CC: HEIDY Lowry; Dr. 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: Signed Normal [facility] Urgent Care Visit Reporton 0 01-14-2025 Urgent Care Visit Report [facility] [address], [address] [place] [address] OFFICE VISIT Date of Service: 01/14/25 MR#: [id number] Acct: [id number] Name: EDE DE LUNA Rep #: [id number] : 1955 Provider: CYNDY Ng Age/Sex: 69/M Location: [facility] [place] [place] Status: Signed Intake Vital Signs 11/20/24 09:13 01/14/25 13:08 Height 5 ft 4 in 5 ft 4 in Weight: 169 lb 2 oz BMI 29.0 BP 122/74 H Position Sitting Pulse 71 Temp 98.8 F Temp Source Oral Pulse Oximetry (%) 97 Oxygen Delivery Method room air Intake Visit Reasons: L ARM RASH/POSS SHINGLES Accompanied by: Self Allergies No Known Allergies Allergy (Verified 01/14/25 13:03) Medications ???Medication ???Instructions ???Recorded ???Confirmed ???Type aspirin 81 mg tablet,delayed 81 mg PO DAILY@0800 03/31/1901/14 Rx release cranberry 500 mg capsule 500 mg PO DAILY 05/11/21 01/14/25 History ibuprofen 200 mg tablet 200 mg PO Q6H PRN 06/28/22 5 History finasteride 5 mg tablet 5 mg PO DAILY 11/08/23 01/14/25 Hi story losartan 25 mg tablet 25 mg PO DAILY #90 tabs 12/05/23 0 01/14/25 Rx metoprolol tartrate 25 mg tablet 25 mg PO BID #180 tabs 12/05/23 Rx amlodipine 5 mg tablet 5 mg PO QDAY #90 tabs 11/20/24 Rx atorvastatin 20 mg tablet 20 mg PO QHS #90 tabs 11/20/24 Rx permethrin 5 % topical cream 1 applic topical Q14D 2 doses #60 01/14/25 01/14/25 Rx grams Have you fallen in the past year?: No Nurse's Note: Patient has a rash on his left arm. Patient states he noticed spots on his wrist and 1 spot on his arm last week. This am he noticed he has more spots on his Left shoulder. Patient denies any itching or pain. He said it only hurts when his shirt rubs on them. Patient states he put pexoide and alcohol and neosporin on them today. 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 Hyperlipidemia Presence of stent in coronary artery ( 03/30/19) Old myocardial infarction Hx of non-ST elevation myocardial infarction (NSTEMI) Essential (primary) hypertension Atherosclerosis of [place] coronary artery of [place] heart without angina pectoris NSTEMI (non-ST elevated myocardial infarction) Hypercalcemia Diverticulosis Obesity (BMI 30.0-34.9) Surgical History History of cataract surgery Presence of coronary angioplasty implant and graft ( 03/30/19) Family History Father Valvular heart disease Congenital CAD (coronary artery disease) Stenting in late 60s Mother Cardiac pacemaker in situ Social History Smoking Status: Never smoker HPI HPI Details: EDE DE LUNA, is a 69 M who presents to the office today for initial evaluation appropriately 1 week history of erythematous raised close papular lesions beginning on left forearm and migrating to left upper arm. No local localized pain or pruritus, noting sites are not aggravated after exposure to hot shower or in the teacher early childhood development upon awakening. No close contacts with similar complaints. No tiqd-yxj-geopatt products tried to assist other than topical rubbing alcohol which brunson. ROS Const Constitutional: No other (As above) Exam Const General: cooperative, healthy appearing and no acute distress Nutritional Appearance: average body habitus Orientation: alert and awake HENMT Head: normal to inspection Ears: hearing grossly normal bilaterally and external ears normal Nose: external nose normal Neck Neck: normal visual inspection, no lymphadenopathy, no meningeal signs and supple Thyroid: thyroid normal Chest Chest palpation inspection: normal inspection of the chest Resp Effort Inspection: normal respiratory effort and able to speak in complete sentences Cardio Rate: regular rate Pulses: radial pulses present GI Inspection: normal to inspection Palpation: soft Skin Other: Clustered erythematous base close papular lesions with excoriations in various stages of healing initially appreciated to the left forearm spreading to left upper arm as patient describes over the course the last week. No one same household with similar complaints upon questioning. Neuro General: patient alert and patient awake Cognition: normal cognition Speech: speech normal Extrem General: normal to inspection Psych Appearance: grossly normal Mental Status: mental status grossly normal Mood: congruent mood Affect: normal affect Speech and Movement: speech and movement normal Attitude: cooperative Thought Process: normal Thought Content: normal Judgment: judgment good Coding Level of Care Code Off (more content not included)... Normal [facility] Stress Reporton 12-25-2024 Stress Report [facility] Cardiovascular Services [address] [place] [address] MR#: [id number] Acct: [id number] Name: EDE DE LUNA Rep #: [id number] : 1955 68 From: Rosalie Shaver MD Primary Care: Dr. Devyn Moe, DO Status: REG CLI Referring Dr: Rosalie Shaver MD Sex: M UTD Stress Test Report Date: 12/23/2024 Procedure: Pharmacologic stress nuclear imaging study Indications: Coronary artery disease Consent: Per the patient Procedure: The patient underwent pharmacologic (Regadenoson 0.4mg ) evaluation with a peak heart rate of 111 beats per minute (74%predicted maximal heart rate) and a peak blood pressure of 146/80 mmHg. The baseline ECG demonstrated sinus rhythm. The peak pharmacologic ECG no ischemic changes. There were no cardiac dysrhythmias pretest, during pharmacologic infusion, or recovery. There was no complaint of chest discomfort during pharmacologic infusion or recovery. The patient was injected with 11.9 millicuries of technetium 99m Cardiolite and subsequently rest SPECT Cardiolite nuclear imaging was obtained in the horizontal long, vertical long, and short axis views. The patient underwent pharmacologic (Regadenoson) evaluation. The patient was injected with 33.9 millicuries of technetium 99m Cardiolite and subsequently stress SPECT Cardiolite nuclear imaging was obtained in the horizontal long, vertical long, and short axis views. A gated Cardiolite study at peak stress was obtained. The examination was stopped secondary to completion of protocol. Rest and stress SPECT Cardiolite nuclear imaging status post realignment, normalization, and attenuation correction demonstrate a fixed anterior defect of mild intensity, suggestive of previous nontransmural infarct. There is end systolic thickening and brightening. The gated Cardiolite study demonstrates myocardial thickening and inward wall motion. The reported LVEF is 72%. Impression: 1. Pharmacologic (Regadenoson) evaluation 2. Peak pharmacologic ECG with no ischemic changes. 3. There were no cardiac dysrhythmias pretest, during pharmacologic infusion, or recovery. 5. Mildly reduced perfusion of the anterior wall at baseline as well as post pharmacological stress. Suggestive of previous nontransmural infarct with no significant collette-infarct ischemia. 6. The gated Cardiolite study reports an LVEF of 72%. This note was generated with 3Scan dictation software. It may contain incorrect words, spelling, and punctuation that were not noted in checking the note before signing. 12/25/24 1211 Date Rosalie Shaver MD CC: Dr. Rosalie Shaver MD; Dr. Devyn Moe, Date Dictated: 12/25/24 1206 Date Transcribed: 12/25/24 1206 Car Repairer Apprentice: ULYSSES Signed Normal [facility] Arterial study reportOrdered By: Kip Newberry on 12-23-2024 Noninvasive arteriosclerosis study report [facility] Cardiovascular Services [address] [place] [address] Lower Ext Art Exam w/o Exercis 12/23/24 1000 MR#: [id number] Acct: [id number] Name: EDE DE LUNA Rep #:[id number] : 1955 68 From: Kip Ram Attending Dr: Dr. Rosalie Shaver MD Status: REG CLI Ordering Dr: Rosalie Shaver MD Date: Location: [facility] Sex: M UTD Admitted: Reason For Study Reason For Study: Claudication Procedure A bilateral lower extremity continuous wave Doppler with analog waveform analysis,segmental pressures,and ankle brachial indexes without exercise. Left Segmental Pressures Left brachial= 148mmHg. Left posterior tibial artery = >254mmHg. Left dorsalis pedis artery = >254mmHg. Left digit = 130 mmHg. The left dorsalis pedis waveforms are triphasic. The left posterior tibialartery waveforms are triphasic. Right Segmental Pressures Right brachial= 151mmHg. Right posterior tibial artery = >254mmHg. Right dorsalis pedis artery = 205mmHg. Right digit = 144 mmHg. The right dorsalis pedis waveforms are triphasic. The right posterior tibial artery waveforms are triphasic. Indices The right ankle brachial index by the dorsalis pedis is 1.36. The right ankle brachial index by the posterior tibial artery is NC. The right digital-brachial index is 0.95. The left ankle brachial index by the dorsalis pedis is NC. The left ankle brachial index by the posterior tibial artery is NC. The left digital-brachial index is 0.86. VL/Lower Ext Art Exam w/o Exercis Interpretation Summary Right CLARISSA 1.36, normal. TBI and Doppler/PVR waveforms of the right leg normal atrest. Left CLARISSA not able to be obtained due to non-compressible vessels. TBI and Doppler/PVR waveforms of the left leg normal at rest. __ Ordering Physician: Rosalie Shaver Referring Physician: Ina Moe M.D. Performed By: Alicia Cha Babatunde 12/23/24 1547 Date _ Kip Newberry MD CC: Dr. Rosalie Shaver MD; Dr. Devyn Moe, DO ~ Date Dictated: 12/23/24 1000 Date Transcribed: 12/23/241546 Car Repairer Apprentice: Signed [facility] Work Phone: [employer] 12-23-2024 Echo [facility] Cardiovascular Services [address] [place] [address] Echo Complete 12/23/24 0918 MR#: [id number] Acct: [id number] Name: EDE DE LUNA Rep #: [id number] : 1955 68 From: Rosalie Shaver MD Attending Dr: Dr. Rosalie Shaver MD Status: REG CLI Ordering Dr: Rosalie Shaver MD Date: 12/23/24 Location: [facility] Sex: M UTD Admitted: Reason For Study Reason For Study: CDA/ASHD Procedure This was a 2D Doppler, Color Flow transthoracic echocardiogram. Exam performed in department. Left Ventricle Normal LV size. Mild concentric left ventricular hypertrophy. The left ventricular ejection fraction is 65 %. Stage 1 diastolic dysfunction. Right Ventricle Normal right ventricle. Atria The left and right atria are normal. Mitral Valve Trivial mitral valve insufficiency. Tricuspid Valve Trivial tricuspid valve insufficiency. Right ventricular systolic pressure estimated to be 39 mmHg. Aortic Valve Trisinus/trileaflet aortic valve. Trivial aortic valve insufficiency. Pulmonic Valve The pulmonic valve is not well visualized. Great Vessels Normal sized aortic root. Pericardium/Pleural No pericardial effusion. MMode/2D Measurements Calculations LVIDd: 3.8 cm IVSd: 1.2 cm Ao root diam: 3.1 cm LVIDs: 2.7 cm LVPWd: 0.88 cm RVDd: 3.5 cm FS: 30.4 % __ LAV(MOD-bp): 26.9 ml LVAd ap4: 23.2 cm2 SV(MOD-sp4): 37.6 ml LAV(MOD-bp) Indexed: 14.8 ml/m2 LVLd ap4: 7.8 cm SI(MOD-sp4): 20.6 ml/m2 LAV(MOD-sp2): 28.3 ml EDV(MOD-sp4): 55.5 ml LAV(MOD-sp4): 22.4 ml EDV(sp4-el): 58.6 ml LVAs ap4: 11.6 cm2 LVLs ap4: 6.4 cm ESV(MOD-sp4): 17.9 ml ESV(sp4-el): 17.8 ml EF(MOD-sp4): 67.8 % EF(sp4-el): 69.7 % __ SV(sp4-el): 40.8 ml LA A4 area: 10.6 cm2 LA dimension(2D): 3.3 cm __ RA A4 area: 7.6 cm2 TAPSE: 2.2 cm Time Measurements MV dec time: 0.27 sec Doppler Measurements Calculations MV E max artem: 62.3 cm/sec Lat Peak E' Artem: 8.7 cm/sec Med Peak E' Artem: 7.3 cm/sec MV A max artem: 81.4 cm/sec E/E' lat: 7.2 E/E' med: 8.6 MV E/A: 0.77 __ Ao V2 max: 113.2 cm/sec LV V1 max: 98.8 cm/sec MV dec slope: 233.9 cm/sec2 Ao max P.1 mmHg LV V1 max P.9 mmHg Ao V2 mean: 79.9 cm/sec LV V1 mean P.1 mmHg Ao mean P.9 mmHg LV V1 mean: 67.1 cm/sec Ao V2 VTI: 26.8 cm LV V1 VTI: 22.3 cm AV (velocity ratio): 0.83 __ PA V2 max: 108.7 cm/sec PI end-d artem: 121.9 cm/sec TR max artem: 293.9 cm/sec TR max P.6 mmHg ECHO/Echo Complete Interpretation Summary Mild concentric left ventricular hypertrophy. The left ventricular ejection fraction is 65 %. Stage 1 diastolic dysfunction. Right ventricular systolic pressure estimated to be 39 mmHg. __ Ordering Physician: Rosalie Shaver Referring Physician: Devyn Moe Performed By: Navya Lowry RDCS, RVT 12/25/241635 Date Rosalie Shaver MD CC: Dr. Rosalie Shaver MD; Dr. Devyn Moe DO Date Dictated: 12/23/2418 Date Transcribed: 12/25/241635 Car Repairer Apprentice: Signed Normal [facility] Lower Ext Art Exam w/o Exerc ruby 12-23-2024 Lower Ext Art Exam w/o Exercis [facility] Cardiovascular Services [address] [place] [address] Lower Ext Art Exam w/o Exercis 12/23/24 1000 MR#: [id number] Acct: [id number] Name: EDE DE LUNA Rep #: [id number] : 1955 68 From: Kip Newberry MD Attending Dr: Dr. Rosalie Shaver MD Status: REG CLI Ordering Dr: Rosalie Shaver MD Date: 12/23/24 Location: [facility] Sex: M UTD Admitted: Reason For Study Reason For Study: Claudication Procedure A bilateral lower extremity continuous wave Doppler with analog waveform analysis,segmental pressures,and ankle brachial indexes without exercise. Left Segmental Pressures Left brachial= 148mmHg. Left posterior tibial artery = >254mmHg. Left dorsalis pedis artery = >254mmHg. Left digit = 130 mmHg. The left dorsalis pedis waveforms are triphasic. The left posterior tibial artery waveforms are triphasic. Right Segmental Pressures Right brachial= 151mmHg. Right posterior tibial artery = >254mmHg. Right dorsalis pedis artery = 205mmHg. Right digit = 144 mmHg. The right dorsalis pedis waveforms are triphasic. The right posterior tibial artery waveforms are triphasic. Indices The right ankle brachial index by the dorsalis pedis is 1.36. The right ankle brachial index by the posterior tibial artery is NC. The right digital-brachial index is 0.95. The left ankle brachial index by the dorsalis pedis is NC. The left ankle brachial index by the posterior tibial artery is NC. The left digital-brachial index is 0.86. VL/Lower Ext Art Exam w/o Exercis Interpretation Summary Right CLARISSA 1.36, normal. TBI and Doppler/PVR waveforms of the right leg normal at rest. Left CLARISSA not able to be obtained due to non-compressible vessels. TBI and Doppler/PVR waveforms of the left leg normal at rest. __ Ordering Physician: Rosalie Shaver Referring Physician: Ian Moe M.D. Performed By: Alicia Cha RVT 12/23/24 1547 Date Kip Newberry MD CC: Dr. Rosalie Shaver MD; Dr. 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 [place] [address] OFFICE VISIT Date of Service: 11/20/24 MR#: [id number] Acct: [id number] Name: EDE DE LUNA Rep #: [id number] : 1955 Provider: Dr. Rosalie Shaver MD Age/Sex: 68/M Location[facility] Status: Signed HPI HPI History of Present Illness Details: This gentleman has history of coronary artery disease status post NSTEMI in 2019, status post drug- eluting stent to the proximal high diagonal branch, hypertension and dyslipidemia. Denies any chest pains. No shortness of breath. No palpitations. No orthopnea or PND. No ankle edema. Patient does describe some claudication of his left calf with exertion. Also complains of both feet being cold. 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 Accompanied by: Self Is patient in pain?: No Allergies No Known Allergies Allergy (Verified 11/08/23 09:04) Medications ???Medication ???Instructions ???Recorded ???Confirmed ???Type aspirin 81 mg tablet,delayed 81 mg PO DAILY@0800 03/31/1911/20 Rx release cranberry 500 mg capsule 500 mg PO DAILY 05/11/21 11/20/24 History ibuprofen 200 mg tablet 200 mg PO Q6H PRN 06/28/22 5 History finasteride 5 mg tablet 5 mg PO DAILY 11/08/23 11/20/24 Hi story atorvastatin 40 mg tablet 40 mg PO QHS #90 tabs 12/05/23 Rx losartan 25 mg tablet 25 mg PO DAILY #90 tabs 12/05/23 0 11/20/24 Rx metoprolol tartrate 25 mg tablet 25 mg PO BID #180 tabs 12/05/23 Rx Ejection fraction %: 60 Have you fallen in the past year?: No PFSH Medical History Atherosclerosis of [place] coronary artery of [place] heart without angina pectoris Diverticulosis Essential (primary) hypertension Hx of non-ST elevation myocardial infarction (NSTEMI) Hypercalcemia Hyperlipidemia NSTEMI (non-ST elevated myocardial infarction) Obesity (BMI 30.0-34.9) Old myocardial infarction Presence of stent in coronary artery ( 03/30/19) Surgical History History of cataract surgery Presence of coronary angioplasty implant and graft ( 03/30/19) Family History Father Valvular heart disease Congenital CAD (coronary artery disease) Stenting in late 60s Mother Cardiac pacemaker in situ Social History Smoking Status: Never smoker ROS Const Const: Negative for fatigue, weakness, headache(s) or weight gain ENT ENT: Negative for headache(s), dizziness, Nosebleed/epistaxis or balance problems Cardio Chest Pain: No Palpitations: No Edema: None Muscle aches with walking: None Resp Respiratory: Negative for SOB with activity, SOB at rest or SOB orthopnea SOB lying down GI GI: Positive for heartburn (chronic; unchanged); Negative nausea or vomiting Musc Musc: Negative for muscle aches/ myalgia, muscle weakness, joint pain or balance problems Neuro Neuro: Negative for dizziness, lightheadedness, near syncope, syncope, headache(s) or weakness Endo Endo: Negative for fatigue Cardiology Exam Const Appearance: comfortable and no acute distress Nutritional Appearance: well nourished Neck Neck: no JVD Carotids: Negative bruit Chest Auscultation: Bilateral: Clear to Auscultation Cardio Rate: regular rate Rhythm: regular rhythm Heart sounds: S1 normal and S2 normal Neuro General: patient alert, patient awake and patient oriented x3 Extremities Lower Extremity Edema: None: Bilateral Supplemental Info Supplemental Information Echocardiogram 02/10/2020: Interpretation Summary The study was technically difficult. Left ventricular systolic function is normal. The estimated ejection fraction is 60 %. Apical false tendon noted. Mild (1+) mitral valve insufficiency. Trivial tricuspid valve insufficiency. Trivial aortic valve insufficiency. Mild (1+) pulmonic valve insufficiency. Right ventricular systolic pressure estimated to be 26 mmHg. No evidence for diastolic dysfunction. CORONARY ANGIOGRAPHY 03/2019: CONCLUSIONS Elevated Left Ventricular End Diastolic Pressure LV regional wall motion abnormalities with overall preserved LV systolic function LVEF: by LV gram 55 % [place] Multivessel CAD RECOMMENDATIONS Risk factor modification Medical therapy Referred for immediate PCI DOMINANCE: Co- Dominant LEFT HEART ASSESSMENT Left Ventricular Ejection Fra (more content not included)... Normal [facility] Bilirubin directOrdered By: Sanjay Lowry on 11-03-2024 Bilirubin.direct [Mass/Vol] 0.19 mg/dL 0.00-0.30 [facility] Bilirubin, totalOrdered By: Sanjay Lowry on 11-03-2024 Bilirubin [Mass/Vol] 0.60 mg/dL 0.20-1.00 [facility] Comment on above: For patients on eltr ombopag therapy, use of [place] TBIL is not recommended. Diagnostic total prostate sp ecific antigen (PSA) measurementOrdered By: Warren Lomax on 11-03-2024 Prostate Specific Antigen Total 2.01 ng/mL 0.0-4.0 [facility] Comment on above: This test was perfor med using the TPSA assay method for the[employer] chemistry system. Values obtained with differentassay methods cannot be used interchangably.When changing PSA assays in the course of monitoring apatient, additional sequential testing should be carriedout to confirm baseline values. High density lipoprotein (HD L) measurementOrdered By: Sanjay Lowry on 11-03-2024 Cholesterol in HDL [Mass/Vol] 60 mg/dL >40 [facility] Comment on above: The drugs N-Acetylcy steine and Metamizole may falsely depress this assay. Reference Range HDL <40 mg/dL Low HDL Cholesterol HDL >or= 60 mg/dL High HDL Cholesterol Laboratory - Chemistry and C hemistry - challengeOrdered By: Sanjay Lowry on 11-03-2024 AST [Catalytic activity/Vol] 25 U/L 15-37 [facility] Lipid Profileon 11-03-2024 Cholesterol [Mass/Vol] 114 mg/dL Normal 200 [facility] Comment on above: Result Comment: <200 mg/dL Desirable 200-240 mg/dL Borderline >240 mg/dL High Risk Performed By: #### L 500.3400, L500.4100 #### [facility] Laboratory [address] [place], [address] Cholesterol in HDL [Mass/Vol] 60 mg/dL Normal [facility] Comment on above: Result Comment: The drugs N-Acetylcysteine and Metamizole may falsely depress this assay. Reference Range HDL <40 mg/dL Low HDL Cholesterol HDL >or= 60 mg/dL High HDL Cholesterol Performed By: #### L 500.3400, L500.4100 #### [facility] [address] [place], [address] Cholesterol in LDL [Mass/Vol] 25 mg/dL Normal 0-130 [facility] Comment on above: Performed By: #### L 500.3400, L500.4100 #### [facility] [address] [place], [address] Cholesterol in VLDL [Mass/Vol] 29 mg/dL Normal 5-40 [facility] Comment on above: Performed By: #### L 500.3400, L500.4100 #### [facility] [address] [place], [address] Triglyceride [Mass/Vol] 145 mg/dL Normal [facility] Comment on above: Result Comment: The drugs N-Acetylcysteine and Metamizole may falsely depress this assay. Serum Triglycerides Reference Interval Normal <150 mg/dL Borderline high 150 - 199 mg/dL High 200 - 499 mg/dL Very High > or = 500 mg/dL Performed By: #### L 500.3400, L500.4100 #### [facility] [address] [place], [address] Liver Profileon 11-03-2024 Albumin [Mass/Vol] 3.7 g/dL Normal 3.2-5.0 [facility] Comment on above: Performed By: #### L 500.3400, L500.4100 #### [facility] [address] [place], [address] ALK P 81 U/L Normal 45-117 [facility] Comment on above: Performed By: #### L 500.3400, L500.4100 #### [facility] [address] [place], [address] ALT [Catalytic activity/Vol] 31 U/L Normal 16-61 [facility] Comment on above: Performed By: #### L 500.3400, L500.4100 #### [facility] [address] [place], [address] AST [Catalytic activity/Vol] 25 U/L Normal 15-37 [facility] Comment on above: Performed By: #### L 500.3400, L500.4100 #### [facility] [address] [place], [address] Bilirubin [Mass/Vol] 0.60 mg/dL Normal 0.20-1.00 [facility] Comment on above: Result Comment: For patients on eltrombopag therapy, use of [place] TBIL is not recommended. Performed By: #### L 500.3400, L500.4100 #### [facility] [address] [place], [address] Bilirubin.direct [Mass/Vol] 0.19 mg/dL Normal 0.00-0.30 [facility] Comment on above: Performed By: #### L 500.3400, L500.4100 #### [facility] [address] [place], [address] Globulin (S) [Mass/Vol] 3.4 g/dL Normal 2.2-4.2 [facility] Comment on above: Performed By: #### L 500.3400, L500.4100 #### [facility] [address] [place], [address] T PROT 7.1 g/dL Normal 6.4-8.2 [facility] Comment on above: Performed By: #### L 500.3400, L500.4100 #### [facility] [address] [place], [address] Low density lipoprotein (LDL ) cholesterol measurementOrdered By: Sanjay Lowry on 11-03-2024 Cholesterol in LDL [Mass/Vol] 25 mg/dL 0-130 [facility] PSA,Total- Diagnosticon 02 0-2024 PSA, DIAGNOSTIC 2.01 ng/mL Normal 0.0-4.0 [facility] Comment on above: Result Comment: This test was performed using the TPSA assay method for the [employer] chemistry system. Values obtained with different assay methods cannot be used interchangably. When changing PSA assays in the course of monitoring a patient, additional sequential testing should be carried out to confirm baseline values. Performed By: #### L 501.9940 #### [facility] [address] [place], [address] Serum globulin measurementOr dered By: Sanjay Lowry on 11-03-2024 Globulin (S) [Mass/Vol] 3.4 g/dL 2.2-4.2 [facility] Serum or plasma alanine ornelas otransferase (ALT) measurementOrdered By: Sanjay Lowry on 11-03-2024 ALT [Catalytic activity/Vol] 31 U/L 16-61 [facility] Serum or plasma albumin jessica urement (mass/volume)Ordered By: Sanjay Lowry on 11-03-2024 Albumin [Mass/Vol] 3.7 g/dL 3.2-5.0 [facility] Serum or plasma alkaline izzy sphatase measurementOrdered By: Sanjay Lowry on 11-03-2024 ALP [Catalytic activity/Vol] 81 U/L 45-117 [facility] Serum or plasma cholesterol measurement (mass/volume)Ordered By: Sanjay Lowry on 11-03-2024 Cholesterol [Mass/Vol] 114 mg/dL <200 [facility] Comment on above: <200 mg/dL Desirable 200-240 mg/dL Borderline >240 mg/dL High Risk Total proteinOrdered By: Justino Lowry on 11-03-2024 Protein [Mass/Vol] 7.1 g/dL 6.4-8.2 [facility] Triglycerides measurementOrd ered By: Sanjay Lowry on 11-03-2024 Triglyceride [Mass/Vol] 145 mg/dL <199 [facility] Comment on above: The drugs N-Acetylcy steine and Metamizole may falsely depress this assay.Serum Triglycerides Reference Interval Normal <150 mg/dL Borderline high 150 - 199 mg/dL High 200 - 499 mg/dL Very High > or = 500 mg/dL Very low density lipoprotein (VLDL) cholesterol measurementOrdered By: Sanjay Lowry on 11-03-2024 Very low density lipoprotein (VLDL) cholesterol measurement 29 mg/dL 5-40 [facility] VLDL Cholesterol 29 mg/dL 5-40 [facility] Basophil percentageOrdered B y: Sanjay Lowry on 04-23-2023 Bilirubin [Mass/Vol] 0.60 mg/dL 0.20-1.00 [facility] Comment on above: For patients on eltr ombopag therapy, use of [place] TBIL is not recommended. Cholesterol [Mass/Vol] 107 mg/dL <200 [facility] Comment on above: <200 mg/dL Desirable 200-240 mg/dL Borderline >240 mg/dL High Risk Protein [Mass/Vol] 7.1 g/dL 6.4-8.2 [facility] Triglyceride [Mass/Vol] 89 mg/dL <199 [facility] Comment on above: The drugs N-Acetylcy steine and Metamizole may falsely depress this assay.Serum Triglycerides Reference Interval Normal <150 mg/dL Borderline high 150 - 199 mg/dL High 200 - 499 mg/dL Very High > or = 500 mg/dL Direct bilirubinOrdered By: Sanjay Lowry on 04-23-2023 Bilirubin.direct [Mass/Vol] 0.17 mg/dL 0.00-0.30 [facility] Laboratory - Chemistry and C hemistry - challengeOrdered By: Sanjay Lowry on 04-23-2023 ALP [Catalytic activity/Vol] 74 U/L 45-117 [facility] ALT [Catalytic activity/Vol] 35 U/L 16-61 [facility] Globulin (S) [Mass/Vol] 3.3 g/dL 2.2-4.2 [facility] No Panel InformationOrdered By: Warren Lomax on 04-23-2023 Prostate Specific Antigen Total 5.06 ng/mL 0.0-4.0 [facility] Comment on above: This test was perfor med using the TPSA assay method for the[employer] chemistry system. Values obtained with differentassay methods cannot be used interchangably.When changing PSA assays in the course of monitoring apatient, additional sequential testing should be carriedout to confirm baseline values. Serum or plasma albumin jessica urement (mass/volume)Ordered By: Sanjay Lowry on 04-23-2023 Albumin [Mass/Vol] 3.8 g/dL 3.2-5.0 [facility] Serum or plasma cholesterol in HDL measurement (mass/volume)Ordered By: Sanjay Lowry on 04-23-2023 Cholesterol in HDL [Mass/Vol] 51 mg/dL >40 [facility] Comment on above: The drugs N-Acetylcy steine and Metamizole may falsely depress this assay. Reference Range HDL <40 mg/dL Low HDL Cholesterol HDL >or= 60 mg/dL High HDL Cholesterol Serum or plasma cholesterol in VLDL measurement (mass/volume)Ordered By: Sanjay Lowry on 04-23-2023 Cholesterol in VLDL [Mass/Vol] 18 mg/dL 5-40 [facility] Serum or plasma low density lipoprotein (LDL) cholesterol measurement (mass/volume)Ordered By: Sanjay Lowry on 04-23-2023 Cholesterol in LDL [Mass/Vol] 38 mg/dL 0-130 [facility] Thin prep Papanicolaou smear with manual screeningOrdered By: Sanjay Lowry on 04-23-2023 Thin prep Papanicolaou smear with manual screening 37 U/L 15-37 [facility] Basophil percentageOrdered B y: Devyn Brown on 04-04-2023 Basophil percentage 0 SEEN /hpf 0-5 [facility] Bilirubin Test strip Ql (U)O rdered By: Devyn Brown on 04-04-2023 Bilirubin Ql (U) Negative Negative [facility] Ketones Test strip Ql (U)Ord ered By: Devyn Brown on 04-04-2023 Ketones Ql (U) Negative Negative [facility] Mucus LM Ql (Urine sed)Order ed By: Devyn Brown on 04-04-2023 Mucus Ql (Urine sed) 0 SEEN /hpf [facility] Nitrite Test strip Ql (U)Ord ered By: Devyn Brown on 04-04-2023 Nitrite Ql (U) Negative Negative [facility] Protein Test strip Ql (U)Ord ered By: Devyn Brown on 04-04-2023 Protein Ql (U) Negative Negative [facility] Squamous epithelial cells de tection in urine sediment by light microscopyOrdered By: Devyn Brown on 04-04-2023 Epithelial cells.squamous LM Ql (Urine sed) 0 SEEN /hpf 0-5 [facility] Urine blood detectionOrdered By: Devyn Brown on 04-04-2023 RBC Ql (U) 250 /ul Negative [facility] RBC Ql (U) 25-50 SEEN /hpf 0-5 [facility] Urine clarityOrdered By: Vargas glas Brown on 04-04-2023 Clarity (U) Clear Clear [facility] Urine color determinationOrd ered By: Devyn Brown on 04-04-2023 Color (U) Yellow Yellow [facility] Urine glucose detectionOrder ed By: Devyn Brown on 04-04-2023 Glucose Ql (U) Normal mg/dl Normal [facility] Urine leukocyte esterase det ection by dipstickOrdered By: Devyn Brown on 04-04-2023 Leukocyte esterase Test strip Ql (U) Negative Negative [facility] Urine pHOrdered By: Devyn Brown on 04-04-2023 pH (U) 7.0 [pH] 5.0 - 8.0 [facility] Urine sediment bacteria coun t by microscopy (number/high power field)Ordered By: Devyn Brown on 04-04-2023 Bacteria LM.HPF (Urine sed) [#/Area] 0 /[HPF] None Seen [facility] Urine specific gravity measu rementOrdered By: Devyn Moe on 04-04-2023 Specific gravity (U) [Rel density] 1.015 1.002-1.030 [facility] Urobilinogen Auto test strip Ql (U)Ordered By: Devyn Moe on 04-04-2023 Urobilinogen Ql (U) Normal mg/dl Normal [facility] Basophil percentageOrdered B y: Dr. Henry on 11-13-2022 Bilirubin [Mass/Vol] 0.60 mg/dL 0.20-1.00 [facility] Comment on above: For patients on eltr ombopag therapy, use of [place] TBIL is not recommended. Cholesterol [Mass/Vol] 119 mg/dL <200 [facility] Comment on above: <200 mg/dL Desirable 200-240 mg/dL Borderline >240 mg/dL High Risk Protein [Mass/Vol] 7.4 g/dL 6.4-8.2 [facility] Triglyceride [Mass/Vol] 123 mg/dL <199 [facility] Comment on above: The drugs N-Acetylcy steine and Metamizole may falsely depress this assay.Serum Triglycerides Reference Interval Normal <150 mg/dL Borderline high 150 - 199 mg/dL High 200 - 499 mg/dL Very High > or = 500 mg/dL Direct bilirubinOrdered By: Dr. Henry on 11-13-2022 Bilirubin.direct [Mass/Vol] 0.13 mg/dL 0.00-0.30 [facility] Laboratory - Chemistry and C hemistry - challengeOrdered By: Dr. Henry on 11-13-2022 ALP [Catalytic activity/Vol] 85 U/L 45-117 [facility] ALT [Catalytic activity/Vol] 35 U/L 16-61 [facility] Globulin (S) [Mass/Vol] 3.5 g/dL 2.2-4.2 [facility] Serum or plasma albumin jessica urement (mass/volume)Ordered By: Dr. Henry on 11-13-2022 Albumin [Mass/Vol] 3.9 g/dL 3.2-5.0 [facility] Serum or plasma cholesterol in HDL measurement (mass/volume)Ordered By: Dr. Henry on 11-13-2022 Cholesterol in HDL [Mass/Vol] 53 mg/dL >40 [facility] Comment on above: The drugs N-Acetylcy steine and Metamizole may falsely depress this assay. Reference Range HDL <40 mg/dL Low HDL Cholesterol HDL >or= 60 mg/dL High HDL Cholesterol Serum or plasma cholesterol in VLDL measurement (mass/volume)Ordered By: Dr. Henry on 11-13-2022 Cholesterol in VLDL [Mass/Vol] 25 mg/dL 5-40 [facility] Serum or plasma low density lipoprotein (LDL) cholesterol measurement (mass/volume)Ordered By: Dr. Henry on 11-13-2022 Cholesterol in LDL [Mass/Vol] 41 mg/dL 0-130 [facility] Thin prep Papanicolaou smear with manual screeningOrdered By: Dr. Henry on 11-13-2022 Thin prep Papanicolaou smear with manual screening 26 U/L 15-37 [facility] Absolute lymphocyte counton 06-15-2022 Lymphocytes Auto (Unsp spec) [#/Vol] 2.03 10*3/uL 0.83-4.51 [facility] Work Phone: Basophil percentageon 2021 Basophils/100 WBC (Bld) 0.3 % 0-1 [facility] Work Phone: Bilirubin [Mass/Vol] 0.70 mg/dL 0.20-1.00 [facility] Work Phone: Comment on above: For patients on eltr ombopag therapy, use of [place] TBIL is not recommended. Chloride [Moles/Vol] 106 mmol/L 98-107 [facility] Work Phone: Eosinophils/100 WBC (Bld) 0.5 % 0-5 [facility] Work Phone: Glucose [Mass/Vol] 111 mg/dL 74-106 [facility] Work Phone: Comment on above: Fasting Glucose resu lt from 100 to 125 mg/dL suggests IMPAIRED HOMEOSTASIS per A.D.A. criteria. Neutrophils (Bld) [#/Vol] 10.3 10*3/uL 2.0-7.7 [facility] Work Phone: Neutrophils/100 WBC (Bld) 77.5 % 47-70 [facility] Work Phone: Potassium [Moles/Vol] 3.8 mmol/L 3.5-5.1 [facility] Work Phone: Protein [Mass/Vol] 7.8 g/dL 6.4-8.2 [facility] Work Phone: Sodium [Moles/Vol] 140 mmol/L 136-145 [facility] Work Phone: WBC (Bld) [#/Vol] 13.3 10*3/uL 4.4-11.0 [facility] Work Phone: Blood erythrocytes count (nu mber/volume)on 06-15-2022 RBC (Bld) [#/Vol] 5.57 10*6/uL 4.6-6.2 [facility] Work Phone: Blood hemoglobin measurement (mass/volume)on 06-15-2022 Hemoglobin (Bld) [Mass/Vol] 16.0 g/dL 13.0-16.5 [facility] Work Phone: Blood lymphocytes/100 leukoc yteson 06-15-2022 Lymphocytes/100 WBC (Bld) 15.2 % 19-41 [facility] Work Phone: Blood monocytes/100 leukocyt eson 06-15-2022 Monocytes/100 WBC (Bld) 6.2 % 0-10 [facility] Work Phone: Blood platelet mean volumeon 06-15-2022 Platelet mean volume (Bld) [Entitic vol] 9.3 fL 6.2-12.0 [facility] Work Phone: Determination of erythrocyte mean corpuscular volume (MCV)on 06-15-2022 MCV (RBC) [Entitic vol] 90.1 fL 80-94 [facility] Work Phone: Direct bilirubinon Bilirubin.direct [Mass/Vol] 0.17 mg/dL 0.00-0.30 [facility] Work Phone: Hematocrit Auto (Bld) [Volum e fraction]on 06-15-2022 Hematocrit (Bld) [Volume fraction] 50.2 % 40-54 [facility] Work Phone: Laboratory - Chemistry and C hemistry - challengeon 06-15-2022 ALP [Catalytic activity/Vol] 91 U/L 45-117 [facility] Work Phone: ALT [Catalytic activity/Vol] 35 U/L 16-61 [facility] Work Phone: CO2 [Moles/Vol] 26.0 mmol/L 21.0-32.0 [facility] Work Phone: Globulin (S) [Mass/Vol] 3.6 g/dL 2.2-4.2 [facility] Work Phone: Lipase [Catalytic activity/Vol] 258 U/L 73-393 [facility] Work Phone: Urea nitrogen/Creatinine [Mass ratio] 14.0 mg/mg 10-20 [facility] Work Phone: Laboratory - Hematology and Cell countson 06-15-2022 Erythrocyte distribution width (RBC) [Entitic vol] 40.2 fL 35.1-43.9 [facility] Work Phone: Erythrocyte distribution width (RBC) [Ratio] 12.3 % 11.6-14.6 [facility] Work Phone: Immature granulocytes/100 WBC (Bld) 0.300 % 0.0-0.9 [facility] Work Phone: Comment on above: IG% - Immature Granu locytes (promyelocytes, myelocytes and metamyelocytes) > 1% indicates that a LEFT SHIFT is Present. MCH (RBC) [Entitic mass] 28.7 pg 27.0-32.0 [facility] Work Phone: Nucleated RBC/100 WBC (Bld) [Ratio] 0 % 0-5 [facility] Work Phone: MCHC Auto (RBC) [Mass/Vol]on 06-15-2022 MCHC (RBC) [Mass/Vol] 31.9 g/dL 32-36 [facility] Work Phone: No Panel Informationon 06-15 Troponin I High Sensitivity 16 pg/mL 3.0-78.0 [facility] Work Phone: Comment on above: Please Note: New [place] t Units and Gender Specific Reference Ranges. For more information see Policy Stat Procedure [place] High Sensitivity Troponin (TNIH) and attachments. Estimated Creatinine Clearance Calc 47.89 ml/min [facility] Work Phone: Estimated GFR (MDRD) Amer 82 mL/min >60 [facility] Work Phone: Comment on above: GFR Calc Estimated GFR (MDRD) Non-Af Amer 68 mL/min >60 [facility] Work Phone: Comment on above: Non- GFR Calc Platelets bldon 06-15-2022 Platelets (Bld) [#/Vol] 180 10*3/uL 150-450 [facility] Work Phone: Serum or plasma albumin jessica urement (mass/volume)on 06-15-2022 Albumin [Mass/Vol] 4.2 g/dL 3.2-5.0 [facility] Work Phone: Serum or plasma calcium jessica urement (mass/volume)on 06-15-2022 Calcium [Mass/Vol] 11.3 mg/dL 8.5-10.1 [facility] Work Phone: Serum or plasma creatinine m easurement (mass/volume)on 06-15-2022 Creatinine [Mass/Vol] 1.14 mg/dL 0.70-1.30 [facility] Work Phone: Comment on above: The validity of the calculated GFR & GFRAA in patients over 70 years has not been determined. Clinical correlation is essential. Serum or plasma urea nitroge n measurement (mass/volume)on 06-15-2022 Urea nitrogen [Mass/Vol] 16 mg/dL 7-18 [facility] Work Phone: Thin prep Papanicolaou smear with manual screeningon 06-15-2022 Thin prep Papanicolaou smear with manual screening 22 U/L 15-37 [facility] Work Phone: Thin prep Papanicolaou smear with manual screening 8 5-15 [facility] Work Phone: No Panel Informationon 06-05 Prostate Specific Antigen Total 4.31 ng/mL 0.0-4.0 [facility] Work Phone: Comment on above: This test was perfor med using the TPSA assay method for [employer] chemistry system. Values obtained with differentassay methods cannot be used interchangably.When changing PSA assays in the course of monitoring apatient, additional sequential testing should be carriedout to confirm baseline values. Basophil percentageon 2021 Bilirubin [Mass/Vol] 0.70 mg/dL 0.20-1.00 [facility] Work Phone: Comment on above: For patients on eltr ombopag therapy, use of Dimension [place] TBIL is not recommended. Cholesterol [Mass/Vol] 124 mg/dL <200 [facility] Work Phone: Comment on above: <200 mg/dL Desirable 200-240 mg/dL Borderline >240 mg/dL High Risk Protein [Mass/Vol] 7.5 g/dL 6.4-8.2 [facility] Work Phone: Triglyceride [Mass/Vol] 108 mg/dL <199 [facility] Work Phone: Comment on above: The drugs N-Acetylcy steine and Metamizole may falsely depress this assay.Serum Triglycerides Reference Interval Normal <150 mg/dL Borderline high 150 - 199 mg/dL High 200 - 499 mg/dL Very High > or = 500 mg/dL Direct bilirubinon Bilirubin.direct [Mass/Vol] 0.16 mg/dL 0.00-0.30 [facility] Work Phone: Laboratory - Chemistry and C hemistry - challengeon 05-10-2022 ALP [Catalytic activity/Vol] 74 U/L 45-117 [facility] Work Phone: ALT [Catalytic activity/Vol] 37 U/L 16-61 [facility] Work Phone: Globulin (S) [Mass/Vol] 3.6 g/dL 2.2-4.2 [facility] Work Phone: Serum or plasma albumin jessica urement (mass/volume)on 05-10-2022 Albumin [Mass/Vol] 3.9 g/dL 3.2-5.0 [facility] Work Phone: Serum or plasma cholesterol in HDL measurement (mass/volume)on 05-10-2022 Cholesterol in HDL [Mass/Vol] 51 mg/dL >40 [facility] Work Phone: Comment on above: The drugs N-Acetylcy steine and Metamizole may falsely depress this assay. Reference Range HDL <40 mg/dL Low HDL Cholesterol HDL >or= 60 mg/dL High HDL Cholesterol Serum or plasma cholesterol in VLDL measurement (mass/volume)on 05-10-2022 Cholesterol in VLDL [Mass/Vol] 22 mg/dL 5-40 [facility] Work Phone: Serum or plasma low density lipoprotein (LDL) cholesterol measurement (mass/volume)on 05-10-2022 Cholesterol in LDL [Mass/Vol] 51 mg/dL 0-130 [facility] Work Phone: Thin prep Papanicolaou smear with manual screeningon 05-10-2022 Thin prep Papanicolaou smear with manual screening 25 U/L 15-37 [facility] Work Phone: .GFRon 11-17-2020 GFR 76 ml/min/1.73sqm Normal [facility] ([place]) Comment on above: Result Comment: GFR Population mean for , Non- Americans Ages 20-29 = 116 mL/min/1.73 sq.m. Ages 30-39 = 107 mL/min/1.73 sq.m. Ages 40-49 = 99 mL/min/1.73 sq.m. Ages 50-59 = 93 mL/min/1.73 sq.m. Ages 60-69 = 85 mL/min/1.73 sq.m. Ages 70+ = 75 mL/min/1.73 sq.m. Chronic Kidney Disease: Less than 60 mL/min/1.73 square meters End Stage Renal Disease: Less than 15 mL/min/1.73 square meters Performed By: #### B MP #### [address] [address] #### GFR #### [address] [address] GFR Non- 63 ml/min/1.73sqm Normal [facility] ([place]) Comment on above: Result Comment: GFR Population mean for , Non- Americans Ages 20-29 = 116 mL/min/1.73 sq.m. Ages 30-39 = 107 mL/min/1.73 sq.m. Ages 40-49 = 99 mL/min/1.73 sq.m. Ages 50-59 = 93 mL/min/1.73 sq.m. Ages 60-69 = 85 mL/min/1.73 sq.m. Ages 70+ = 75 mL/min/1.73 sq.m. Chronic Kidney Disease: Less than 60 mL/min/1.73 square meters End Stage Renal Disease: Less than 15 mL/min/1.73 square meters Performed By: #### B MP #### [address] [address] #### GFR #### [address] [address] BMPon 11-17-2020 Calcium [Mass/Vol] 9.1 mg/dL Normal 8.4-10.2 [facility] ([place]) Comment on above: Performed By: #### B MP #### [address] [address] #### GFR #### [address] [address] Chloride [Moles/Vol] 105 mmol/L Normal 98-107 [facility] ([place]) Comment on above: Performed By: #### B MP #### [address] [address] #### GFR #### [address] [address] CO2 [Moles/Vol] 29 mmol/L Normal 23-31 [facility] ([place]) Comment on above: Performed By: #### B MP #### [address] [address] #### GFR #### [address] [address] Creatinine [Mass/Vol] 1.16 mg/dL Normal 0.70-1.30 [facility] ([place]) Comment on above: Performed By: #### B MP #### [address] [address] #### GFR #### [address] [address] Electrolyte Balance 9.0 mEq/L Normal [facility] ([place]) Comment on above: Performed By: #### B MP #### [address] [address] #### GFR #### [address] [address] Glucose [Mass/Vol] 62 mg/dL Low 80-115 [facility] ([place]) Comment on above: Performed By: #### B MP #### [address] [address] #### GFR #### [address] [address] Potassium [Moles/Vol] 4.4 mmol/L Normal 3.5-5.1 [facility] ([place]) Comment on above: Performed By: #### B MP #### [address] [address] #### GFR #### [address] [address] Sodium [Moles/Vol] 143 mmol/L Normal 136-145 [facility] ([place]) Comment on above: Performed By: #### B MP #### [address] [address] #### GFR #### [address] [address] Urea nitrogen [Mass/Vol] 15 mg/dL Normal 7-18 [facility] ([place]) Comment on above: Performed By: #### B MP #### [address] [address] #### GFR #### [address] [address] Urea nitrogen/Creatinine [Mass ratio] 13 ratio Normal -27 [facility] ([place]) Comment on above: Performed By: #### B MP #### [address] [address] #### GFR #### [address] [address] CURon 10-22-2020 CUR . MICRO - Microbiology PROCEDURE: Urine Culture [*1] SOURCE: Urine, Clean Catch BODY SITE: COLLECTED DATE/TIME: 10/20/2020 10:03 EST RECEIVED DATE/TIME: 10/20/2020 20:27 EST START DATE/TIME: 10/20/2020 20:28 EST FREE TEXT SOURCE: FINAL REPORTS Final Report [] Verified Date/Time/Personnel : 10/22/2020 08:17 EST No growth at 48 hours. PRELIMINARY REPORTS Preliminary Report [] Verified Date/Time/Personnel : 10/21/2020 11:19 EST No growth to date Performing Locations *1: This test was performed at: [facility], [address] [place] [address], [address] [place] [address] Normal [facility] ([place]) Comment on above: Performed By: #### C UR #### [address] [address] .Auto Diffon 10-20-2020 Ammonia (P) [Mass/Vol] 0.80 10 3/mcL Normal 0.15-1.00 [facility] ([place]) Comment on above: Performed By: #### C BC, ADIFF, LIP, CMP, ANEU #### [address] [address] #### GFR #### [address] [address] Basophils (Bld) [#/Vol] 0.10 10 3/mcL Normal 0.00-0.19 [facility] ([place]) Comment on above: Performed By: #### C BC, ADIFF, LIP, CMP, ANEU #### [place] [address] #### GFR #### [address] [address] Basophils/100 WBC (Bld) 0.6 % Normal 0.0-2.5 [facility] ([place]) Comment on above: Performed By: #### C BC, ADIFF, LIP, CMP, ANEU #### [place] [address] #### GFR #### [address] [address] Eosinophils (Bld) [#/Vol] 0.10 10 3/mcL Normal 0.00-0.40 [facility] ([place]) Comment on above: Performed By: #### C BC, ADIFF, LIP, CMP, ANEU #### [place] [address] #### GFR #### [address] [address] Eosinophils/100 WBC (Bld) 0.5 % Normal 0.0-7.0 [facility] ([place]) Comment on above: Performed By: #### C BC, ADIFF, LIP, CMP, ANEU #### [place] [address] #### GFR #### [address] [address] Lymphocytes (Bld) [#/Vol] 1.60 10 3/mcL Normal 0.77-3.85 [facility] ([place]) Comment on above: Performed By: #### C BC, ADIFF, LIP, CMP, ANEU #### [address] [address] #### GFR #### [address] [address] Lymphocytes/100 WBC (Bld) 11.7 % Normal 10.0-50.0 [facility] ([place]) Comment on above: Performed By: #### C BC, ADIFF, LIP, CMP, ANEU #### [address] [address] #### GFR #### [address] [address] Monocytes/100 WBC (Bld) 5.9 % Normal 1.7-13.0 [facility] ([place]) Comment on above: Performed By: #### C BC, ADIFF, LIP, CMP, ANEU #### [address] [address] #### GFR #### [address] [address] Neutrophils/100 WBC (Bld) 81.3 % High 37.0-80.0 [facility] ([place]) Comment on above: Performed By: #### C BC, ADIFF, LIP, CMP, ANEU #### [address] [address] #### GFR #### [address] [address] .GFRon 10-20-2020 GFR Non- 55 ml/min/1.73sqm Normal [facility] ([place]) Comment on above: Result Comment: GFR Population mean for , Non- Americans Ages 20-29 = 116 mL/min/1.73 sq.m. Ages 30-39 = 107 mL/min/1.73 sq.m. Ages 40-49 = 99 mL/min/1.73 sq.m. Ages 50-59 = 93 mL/min/1.73 sq.m. Ages 60-69 = 85 mL/min/1.73 sq.m. Ages 70+ = 75 mL/min/1.73 sq.m. Chronic Kidney Disease: Less than 60 mL/min/1.73 square meters End Stage Renal Disease: Less than 15 mL/min/1.73 square meters Performed By: #### C BC, ADIFF, LIP, CMP, ANEU #### [address] [address] #### GFR #### [address] [address] GFR 67 ml/min/1.73sqm Normal [facility] ([place]) Comment on above: Result Comment: GFR Population mean for , Non- Americans Ages 20-29 = 116 mL/min/1.73 sq.m. Ages 30-39 = 107 mL/min/1.73 sq.m. Ages 40-49 = 99 mL/min/1.73 sq.m. Ages 50-59 = 93 mL/min/1.73 sq.m. Ages 60-69 = 85 mL/min/1.73 sq.m. Ages 70+ = 75 mL/min/1.73 sq.m. Chronic Kidney Disease: Less than 60 mL/min/1.73 square meters End Stage Renal Disease: Less than 15 mL/min/1.73 square meters Performed By: #### C BC, ADIFF, LIP, CMP, ANEU #### [address] [address] #### GFR #### [address] [address] .NEUABSon 10-20-2020 Neutrophils (Bld) [#/Vol] 10.90 10 3/mcL High 2.85-6.16 [facility] ([place]) Comment on above: Performed By: #### C BC, ADIFF, LIP, CMP, ANEU #### [address] [address] #### GFR #### [address] [address] CBCon 10-20-2020 Erythrocyte distribution width (RBC) [Ratio] 13.1 % Normal 11.5-14.5 [facility] ([place]) Comment on above: Performed By: #### C BC, ADIFF, LIP, CMP, ANEU #### [address] [address] #### GFR #### [address] [address] Hematocrit (Bld) [Volume fraction] 44.8 % Normal 42.0-52.0 [facility] ([place]) Comment on above: Performed By: #### C BC, ADIFF, LIP, CMP, ANEU #### [address] [address] #### GFR #### [place] [address] Hemoglobin (Bld) [Mass/Vol] 15.2 G/dL Normal 14.0-18.0 [facility] ([place]) Comment on above: Performed By: #### C BC, ADIFF, LIP, CMP, ANEU #### [place] [address] #### GFR #### [place] [address] MCH (RBC) [Entitic mass] 30.0 pg Normal 27.0-31.2 [facility] ([place]) Comment on above: Performed By: #### C BC, ADIFF, LIP, CMP, ANEU #### [place] [address] #### GFR #### [place] [address] MCHC (RBC) [Mass/Vol] 33.9 G/dL Normal 31.8-35.4 [facility] ([place]) Comment on above: Performed By: #### C BC, ADIFF, LIP, CMP, ANEU #### [address] [address] #### GFR #### [address] [address] MCV (RBC) [Entitic vol] 88.6 fL Normal 80.0-94.0 [facility] ([place]) Comment on above: Performed By: #### C BC, ADIFF, LIP, CMP, ANEU #### [place] [address] #### GFR #### [address] [address] Platelet mean volume (Bld) [Entitic vol] 7.9 fL Normal 7.4-10.4 [facility] ([place]) Comment on above: Performed By: #### C BC, ADIFF, LIP, CMP, ANEU #### [address] [address] #### GFR #### [address] [address] Platelets (Bld) [#/Vol] 177 10 3/mcL Normal 130-400 [facility] ([place]) Comment on above: Performed By: #### C BC, ADIFF, LIP, CMP, ANEU #### [place] [address] #### GFR #### [address] [address] RBC (Bld) [#/Vol] 5.06 10 6/mcL Normal 4.04-6.13 [facility] ([place]) Comment on above: Performed By: #### C BC, ADIFF, LIP, CMP, ANEU #### [place] [address] #### GFR #### [address] [address] WBC (Bld) [#/Vol] 13.50 10 3/mcL High 4.60-10.80 [facility] ([place]) Comment on above: Performed By: #### C BC, ADIFF, LIP, CMP, ANEU #### [place] [address] #### GFR #### [address] [address] CMPon 10-20-2020 Albumin [Mass/Vol] 4.2 G/dL Normal 3.4-4.8 [facility] ([place]) Comment on above: Performed By: #### C BC, ADIFF, LIP, CMP, ANEU #### [place] [address] #### GFR #### [address] [address] Albumin/Globulin [Mass ratio] 1.4 {ratio} Normal 1.1-2.5 [facility] ([place]) Comment on above: Performed By: #### C BC, ADIFF, LIP, CMP, ANEU #### [place] [address] #### GFR #### [address] [address] ALP [Catalytic activity/Vol] 98 U/L Normal 40-135 [facility] ([place]) Comment on above: Performed By: #### C BC, ADIFF, LIP, CMP, ANEU #### [place] [address] #### GFR #### [address] [address] ALT [Catalytic activity/Vol] 34 U/L Normal 16-63 [facility] ([place]) Comment on above: Performed By: #### C BC, ADIFF, LIP, CMP, ANEU #### [place] [address] #### GFR #### [address] [address] AST [Catalytic activity/Vol] 20 U/L Normal 10-40 [facility] ([place]) Comment on above: Performed By: #### C BC, ADIFF, LIP, CMP, ANEU #### [place] [address] #### GFR #### [address] [address] Bili Total 1.0 mg/dL Normal 0.2-1.0 [facility] ([place]) Comment on above: Result Comment: Use of this assay is not recommended for patients undergoing treatment with eltrombopag due to the potential for falsely elevated results. Performed By: #### C BC, ADIFF, LIP, CMP, ANEU #### [place] [address] #### GFR #### [address] [address] Calcium [Mass/Vol] 9.9 mg/dL Normal 8.4-10.2 [facility] ([place]) Comment on above: Performed By: #### C BC, ADIFF, LIP, CMP, ANEU #### [address] [address] #### GFR #### [address] [address] Chloride [Moles/Vol] 101 mmol/L Normal 98-107 [facility] ([place]) Comment on above: Performed By: #### C BC, ADIFF, LIP, CMP, ANEU #### [address] [address] #### GFR #### [address] [address] CO2 [Moles/Vol] 26 mmol/L Normal 23-31 [facility] ([place]) Comment on above: Performed By: #### C BC, ADIFF, LIP, CMP, ANEU #### [address] [address] #### GFR #### [address] [address] Creatinine [Mass/Vol] 1.30 mg/dL Normal 0.70-1.30 [facility] ([place]) Comment on above: Performed By: #### C BC, ADIFF, LIP, CMP, ANEU #### [address] [address] #### GFR #### [address] [address] Electrolyte Balance 10.0 mEq/L Normal [facility] ([place]) Comment on above: Performed By: #### C BC, ADIFF, LIP, CMP, ANEU #### [address] [address] #### GFR #### [address] [address] Globulin (S) [Mass/Vol] 3.0 G/dL Normal [facility] ([place]) Comment on above: Performed By: #### C BC, ADIFF, LIP, CMP, ANEU #### [address] [address] #### GFR #### [address] [address] Glucose [Mass/Vol] 93 mg/dL Normal 80-115 [facility] ([place]) Comment on above: Performed By: #### C BC, ADIFF, LIP, CMP, ANEU #### [address] [address] #### GFR #### [address] [address] Potassium [Moles/Vol] 4.1 mmol/L Normal 3.5-5.1 [facility] ([place] Comment on above: Performed By: #### C BC, ADIFF, LIP, CMP, ANEU #### [address] [address] #### GFR #### [address] [address] Protein [Mass/Vol] 7.2 G/dL Normal 6.4-8.2 [facility] ([place] Comment on above: Performed By: #### C BC, ADIFF, LIP, CMP, ANEU #### [address] [address] #### GFR #### [address] [address] Sodium [Moles/Vol] 137 mmol/L Normal 136-145 [facility] ([place]) Comment on above: Performed By: #### C BC, ADIFF, LIP, CMP, ANEU #### [address] [address] #### GFR #### [address] [address] Urea nitrogen [Mass/Vol] 15 mg/dL Normal 7-18 [facility] ([place]) Comment on above: Performed By: #### C BC, ADIFF, LIP, CMP, ANEU #### [address] [address] #### GFR #### [facility] [address] [place] [address] Urea nitrogen/Creatinine [Mass ratio] 12 ratio Normal 04-19 [facility] ([place]) Comment on above: Performed By: #### C BC, ADIFF, LIP, CMP, ANEU #### [address] [address] #### GFR #### [place] [id number] [place] [address] [address] ABDOMEN/PELVIS W/CONTRAST on 10-20-2020 CT ABDOMEN/PELVIS W/CONTRAST ORIGINAL CT ABDOMEN/PELVIS W/CONTRAST TECHNIQUE: Images were obtained after the administration of IV and enteric contrast. This exam was performed according to our departmental dose optimization program, and includes the following measures where applicable: automated exposure control, adjustment of the mAs and/or kVp according to patient size and/or exam, and an iterative reconstruction algorithm. CLINICAL STATEMENT: left lower quadrant abdominal pain, hematuria, diverticulosis, hx of diverticulitis and nephrolithiasis. COMPARISON: 02/15/2018 FINDINGS: Moderate degenerative changes are present at the lower lumbar spine. The lung bases are unremarkable. A small hiatal hernia is noted. Scattered liver cysts are noted. The spleen, adrenal glands and pancreas are normal. Scattered renal cysts are present. At the LEFT lower pole kidney there is a 3 mm stone present. There is a 5 mm stone at the RIGHT midpole kidney. No collecting system dilatation or ureteral stone is visible. No adenopathy, free air or free fluid seen. The prostate gland is enlarged, indenting the bladder base. There is moderate diverticulosis of the sigmoid portion of the colon. At the proximal sigmoid at its junction with the LEFT colon, there is mild to moderate pericolic infiltrative increased density present. Scattered diverticula are present elsewhere without inflammation. No evidence for abscess. No other GI tract abnormality seen. IMPRESSION: Mild to moderate diverticulitis at the junction of the LEFT colon and the sigmoid. No evidence for abscess, no free air. Nonobstructive bilateral nephrolithiasis. Interpreted By: Jose Rafael Driscoll MD Preliminary Report By: Jose Rafael Driscoll MD Electronically Signed By: Jose Rafael Driscoll MD Dictated Date: 10/20/2020 12:44:55 PM Prelim Date: 10/20/2020 12:44:55 PM Sign Date: 10/20/2020 12:50:02 PM Ordering Provider:Lencho Regalado [facility] ([place]) Vance 10-20-2020 Lipase Level 184 U/L Normal 73-393 [facility] ([place]) Comment on above: Performed By: #### C BC, ADIFF, LIP, CMP, ANEU #### [facility] [address] [place], [place] [address] #### GFR #### [facility] [address] [place] [address] Vital Signs Date Time Vital Sign Value Performing Clinician Suman jones 02-18-2025 15:16-0400 Body height 162.[address] Devyn Moe DO Work Phone: [facility] 02-18-2025 15:16-0400 Body mass index (BMI) [Ratio] 29.5 kg/m2 Dr. Devyn Moe DO Work Phone: [facility] 02-18-2025 15:16-0400 Body temperature 98 [degF] Dr. Devyn Moe DO Work Phone: [facility] 02-18-2025 15:16-0400 Body weight 78.[address] Devyn Moe DO Work Phone: [facility] 02-18-2025 15:16-0400 Diastolic blood pressure 78 mm[Hg] Dr. Devyn Moe DO Work Phone: [facility] 02-18-2025 15:16-0400 Heart rate 70 /min Dr. Devyn Moe DO Work Phone: [facility] 02-18-2025 15:16-0400 Respiratory rate 16 /min Dr. Devyn Moe DO Work Phone: [facility] 02-18-2025 15:16-0400 SaO2% (BldA) [Mass fraction] 98 % Dr. Devyn Moe DO Work Phone: [facility] 02-18-2025 15:16-0400 Systolic blood pressure 134 mm[Hg] Dr. Devyn Moe DO Work Phone: [facility] 02-11-2025 13:10-0400 Body temperature 98.2 [degF] Dr. Devyn Moe DO Work Phone: [facility] 02-11-2025 13:10-0400 Body weight 77.[address] Devyn Moe DO Work Phone: [facility] 02-11-2025 13:10-0400 Diastolic blood pressure 80 mm[Hg] Dr. Devyn Moe DO Work Phone: [facility] 02-11-2025 13:10-0400 Heart rate 58 /min Dr. Devyn Moe DO Work Phone: [facility] 02-11-2025 13:10-0400 Respiratory rate 18 /min Dr. Devyn Moe DO Work Phone: [facility] 02-11-2025 13:10-0400 SaO2% (BldA) [Mass fraction] 97 % Dr. Devyn Moe DO Work Phone: [facility] 02-11-2025 13:10-0400 Systolic blood pressure 147 mm[Hg] Dr. Devyn Moe DO Work Phone: [facility] 02-03-2025 10:54-0400 Body height 162.[address] Devyn Moe DO Work Phone: [facility] 02-03-2025 10:54-0400 Body mass index (BMI) [Ratio] 29 kg/m2 Dr. Devyn Moe DO Work Phone: [facility] 02-03-2025 10:54-0400 Body temperature 97 [degF] Dr. Devyn Moe DO Work Phone: [facility] 02-03-2025 10:54-0400 Body weight 76.[address] Devyn Moe DO Work Phone: [facility] 02-03-2025 10:54-0400 Diastolic blood pressure 80 mm[Hg] Dr. Devyn Moe DO Work Phone: [facility] 02-03-2025 10:54-0400 Heart rate 70 /min Dr. Devyn Moe DO Work Phone: [facility] 02-03-2025 10:54-0400 Respiratory rate 16 /min Dr. Devyn Moe DO Work Phone: [facility] 02-03-2025 10:54-0400 SaO2% (BldA) [Mass fraction] 96 % Dr. Devyn Moe DO Work Phone: [facility] 02-03-2025 10:54-0400 Systolic blood pressure 130 mm[Hg] Dr. Devyn Moe DO Work Phone: [facility] 01-14-2025 13:08-0400 Body mass index (BMI) [Ratio] 29 kg/m2 Dr. Devyn Moe DO Work Phone: [facility] 01-14-2025 13:08-0400 Body temperature 98.8 [degF] Dr. Devyn Moe DO Work Phone: [facility] 01-14-2025 13:08-0400 Body weight 76.[address] Devyn Moe DO Work Phone: [facility] 01-14-2025 13:08-0400 Diastolic blood pressure 74 mm[Hg] Dr. Devyn Moe DO Work Phone: [facility] [facility] 01-14-2025 13:08-0400 Heart rate 71 /min Dr. Devyn Moe DO Work Phone: [facility] 01-14-2025 13:08-0400 SaO2% (BldA) [Mass fraction] 97 % Dr. Devyn Moe DO Work Phone: [facility] 01-14-2025 13:08-0400 Systolic blood pressure 122 mm[Hg] Dr. Devyn Moe DO Work Phone: [facility] 11-20-2024 09:13-0500 Body mass index (BMI) [Ratio] 29.2 kg/m2 Dr. Devyn Moe DO Work Phone: [facility] 11-20-2024 09:13-0500 Body weight 77.[address] Devyn Moe DO Work Phone: [facility] 11-20-2024 09:13-0500 Diastolic blood pressure 78 mm[Hg] Dr. Devyn Moe DO Work Phone: [facility] 11-20-2024 09:13-0500 Heart rate 50 /min Dr. Devyn Moe DO Work Phone: [facility] 11-20-2024 09:13-0500 Respiratory rate 16 /min Dr. Devyn Moe DO Work Phone: [facility] 11-20-2024 09:13-0500 Systolic blood pressure 141 mm[Hg] Dr. Devyn Moe DO Work Phone: [facility] 04-03-2023 16:28-0400 Body height 162.[address] Arline Arnold Work Phone: [facility] 04-03-2023 16:28-0400 Body mass index (BMI) [Ratio] 28.5 kg/m2 Dr. Arline Arnold Work Phone: [facility] 04-03-2023 16:28-0400 Body temperature 97.8 [degF] Dr. Arline Arnold Work Phone: [facility] 04-03-2023 16:28-0400 Body weight 75.[address] Arline Arnold Work Phone: [facility] 04-03-2023 16:28-0400 Diastolic blood pressure 54 mm[Hg] Dr. Arline Arnold Work Phone: [facility] 04-03-2023 16:28-0400 Heart rate 78 /min Dr. Arline Arnold Work Phone: [facility] 04-03-2023 16:28-0400 Respiratory rate 16 /min Dr. Arline Arnold Work Phone: [facility] 04-03-2023 16:28-0400 SaO2% (BldA) [Mass fraction] 95 % Dr. Arline Arnold Work Phone: [facility] 04-03-2023 16:28-0400 Systolic blood pressure 116 mm[Hg] Dr. Arline Arnold Work Phone: [facility] 11-09-2022 09:24-0500 Body height 162.[address] Arline Arnold Work Phone: [facility] 11-09-2022 09:24-0500 Body mass index (BMI) [Ratio] 29 kg/m2 Dr. Arline Arnold Work Phone: [facility] 11-09-2022 09:24-0500 Body weight 76.[address] Arline Arnold Work Phone: [facility] 11-09-2022 09:24-0500 Diastolic blood pressure 80 mm[Hg] Dr. Arline Arnold Work Phone: [facility] 11-09-2022 09:24-0500 Heart rate 52 /min Dr. Arline Arnold Work Phone: [facility] 11-09-2022 09:24-0500 Respiratory rate 18 /min Dr. Arline Arnold Work Phone: [facility] 11-09-2022 09:24-0500 SaO2% (BldA) [Mass fraction] 100 % Dr. Arline Arnold Work Phone: [facility] 11-09-2022 09:24-0500 Systolic blood pressure 126 mm[Hg] Dr. Arline Arnold Work Phone: [facility] 06-28-2022 10:47-0400 Body height 162.[address] Arline Arnold Work Phone: [facility] Work Phone: 06-28-2022 10:47-0400 Body mass index (BMI) [Ratio] 29.2 kg/m2 Dr. Arline Arnold Work Phone: [facility] Work Phone: 06-28-2022 10:47-0400 Body weight 77.[address] Arline Arnold Work Phone: [facility] Work Phone: 06-15-2022 12:52-0400 Diastolic blood pressure 70 mm[Hg] Dr. Arline Arnold Work Phone: [facility] Work Phone: 06-15-2022 12:52-0400 Heart rate 86 /min Dr. Arline Arnold Work Phone: [facility] Work Phone: 06-15-2022 12:52-0400 Respiratory rate 16 /min Dr. Arline Arnold Work Phone: [facility] Work Phone: 06-15-2022 12:52-0400 SaO2% (BldA) [Mass fraction] 96 % Dr. Arline Arnold Work Phone: [facility] Work Phone: 06-15-2022 12:52-0400 Systolic blood pressure 114 mm[Hg] Dr. Arline Arnold Work Phone: [facility] Work Phone: 06-15-2022 06:22-0400 Body height 157.[address] Arline Arnold Work Phone: [facility] Work Phone: 06-15-2022 06:22-0400 Body mass index (BMI) [Ratio] 30.3 kg/m2 Dr. Arline Arnold Work Phone: [facility] Work Phone: 06-15-2022 06:22-0400 Body temperature 98.3 [degF] Dr. Arline Arnold Work Phone: [facility] Work Phone: 06-15-2022 06:22-0400 Body weight 75.[address] Arline Arnold Work Phone: [facility] Work Phone: 05-10-2022 10:54-0400 Body height 157.[address] Arline Arnold Work Phone: [facility] Work Phone: 05-10-2022 10:54-0400 Body mass index (BMI) [Ratio] 30.2 kg/m2 Dr. Arline Arnold Work Phone: [facility] Work Phone: 05-10-2022 10:54-0400 Body weight 74.[address] Arline Arnold Work Phone: [facility] Work Phone: 05-10-2022 10:54-0400 Diastolic blood pressure 78 mm[Hg] Dr. Arline Arnold Work Phone: [facility] Work Phone: 05-10-2022 10:54-0400 Heart rate 60 /min Dr. Arline Arnold Work Phone: [facility] Work Phone: 05-10-2022 10:54-0400 Respiratory rate 16 /min Dr. Arline Arnold Work Phone: [facility] Work Phone: 05-10-2022 10:54-0400 Systolic blood pressure 124 mm[Hg] Dr. Arline Arnold Work Phone: [facility] Work Phone: Encounters Encounter Date Encounter Type Care Provider Facility Start: 04-13-2025 ambulatory [facility] Facility:[facility] Start: 03-06-2025 End: 03-06-[address] Jasiel Castillo MD -[facility] Start: 03-06-2025 End: 03-06-[address] Devyn Moe DO Work Phone: [facility] Work Phone: Start: 02-18-2025 End: 02-18-[address] Devyn Lorenz DO -[facility] Work Phone: Start: 02-18-2025 End: 02-18-[address] Devyn Moe DO Work Phone: [facility] Work Phone: Start: 02-11-2025 End: 02-11-2025 Patient encounter procedure Shana NAYLOR -[facility] Work Phone: Start: 02-11-2025 End: 02-11-[address] Devyn Moe DO Work Phone: [facility] Work Phone: Start: 02-03-2025 End: 02-03-[address] Devyn Lorenz DO -[facility] Work Phone: Start: 02-03-2025 End: 02-03-[address] Devyn Moe DO Work Phone: [facility] Work Phone: Start: 01-16-2025 End: 01-16-2025 Patient encounter procedure Sanjay Lowry NP-C -Cat Scan, [facility] Work Phone: Start: 01-16-2025 End: 01-16-2025 ambulatory Sanjay Lowry NP Facility:[facility] Start: 01-14-2025 End: 01-14-2025 Patient encounter procedure Satish NAYLOR -[facility] Work Phone: Start: 01-14-2025 End: 01-14-2025 ambulatory Devyn Moe Facility:[facility] Start: 12-25-2024 ambulatory Rosalie Shaver Facility:[facility] Start: 12-25-2024 Non-patient / Non-visit Dr. Rosalie taylor MD -[facility] Start: 12-23-2024 ambulatory Rosalie Sivakumar Facility:[facility] Start: 12-23-2024 Non-patient / Non-visit Dr. Kip sanchez MD -[facility] Start: 12-23-2024 End: 12-23-[address] Devyn Moe DO Work Phone: [facility] Work Phone: Start: 12-23-2024 End: 12-23-[address] Rosalie Shaver MD -Cardiovascular Services Work Phone: Start: 12-23-2024 End: 12-23-2024 [facility] Start: 11-20-2024 End: 11-20-[address] Rosalie Shaver MD -[facility] Work Phone: Start: 11-20-2024 End: 11-20-2024 ambulatory Rosalie Sivakumar Facility:[facility] Start: 11-03-2024 End: 11-03-[address] Warren Lomax MD -Laboratory Work Phone: Start: 11-03-2024 End: 11-03-2024 ambulatory Sanjay Lowry NP Facility:[facility] Start: 04-23-2023 End: 04-23-[address] Arline Arnold Work Phone: [facility] Work Phone: Start: 04-23-2023 End: 04-23-[address] Arline Arnold Work Phone: [facility]-Laboratory, [facility] Start: 04-19-2023 Non-patient / Non-visit Dr. Mekhi Arnold Work Phone: [facility] Start: 04-19-2023 End: 04-19-[address] Arline Arnold Work Phone: [facility] Work Phone: Start: 04-19-2023 End: 04-19-[address] Arline Arnold Work Phone: [facility]-Cardiovascular Services Work Phone: Start: 04-10-2023 End: 04-10-[address] Arline Arnold Work Phone: [facility]-Ultrasound, [facility] Work Phone: Start: 04-04-2023 End: 04-04-[address] Arline Arnold Work Phone: [facility] Work Phone: Start: 04-04-2023 End: 04-04-[address] Arline Arnold Work Phone: [facility]-Laboratory, Specimen Work Phone: Start: 04-03-2023 End: 04-03-[address] Arline Arnold Work Phone: [facility] Work Phone: Start: 11-13-2022 End: 11-13-[address] Arline Arnold Work Phone: [facility] Work Phone: Start: 11-13-2022 End: 11-13-[address] Arline Arnold Work Phone: [facility]-Laboratory Start: 11-09-2022 End: 11-09-[address] Arline Arnold Work Phone: [facility] Start: 08-28-2022 End: 08-28-[address] Arline Arnold Work Phone: [facility] Start: 08-23-2022 End: 08-23-[address] Arline Arnold Work Phone: [facility]-Pulmonary Services/Neurology Start: 07-12-2022 End: 07-12-[address] Arline Arnold Work Phone: [facility] Work Phone: Start: 07-12-2022 End: 07-12-[address] Arline Arnold Work Phone: [facility] Start: 06-28-2022 End: 06-28-[address] Arline Arnold Work Phone: [facility] Start: 06-15-2022 End: 06-15-2022 Emergency department patient visit Dr. Arline Arnold Work Phone: [facility]-Emergency Department Start: 06-05-2022 End: 06-05-[address] Arline Arnold Work Phone: [facility] Work Phone: Start: 06-05-2022 End: 06-05-[address] Arline Arnold Work Phone: [facility]-Laboratory Start: 05-10-2022 End: 05-10-[address] Arline Arnold Work Phone: [facility] Procedures Date Procedure Procedure Detail Performing Clinician Start: 01-16-2025 CT of abdominal aort a with contrast Dr. Devyn Moe DO Work Phone: Start: 12-23-2024 Cardiovascular stres s test using pharmacologic stress agent Dr. Devyn Moe DO Work Phone: Start: 11-03-2024 Assay of prostate sp ecific antigen total Dr. Devyn Moe DO Work Phone: Comment on above: This test was perfor med using the TPSA assay method for the[employer] chemistry system. Values obtained with differentassay methods cannot be used interchangably.When changing PSA assays in the course of monitoring apatient, additional sequential testing should be carriedout to confirm baseline values. Start: 04-10-[address] Mekhi Arnold Work Phone: Start: 07-12-2022 MRI of lumbar spine Dr. Arline Arnold Work Phone: Start: 06-28-2022 X-ray of lumbar spin e, two or three views Dr. Arline Arnold Work Phone: Start: 06-15-2022 Plain chest X-ray Dr. Cecy Arnold Work Phone: Plan of Treatment Date Care Activity Detail Author Start: 03-06-2025 X-ray of lumbosacral spine L/S Spine Min 4 Views [facility] Start: 03-06-2025 XR Spine Lumbar and Sacrum GE 4 Views [facility] Start: 02-18-2025 Patient referral [facility] Work Phone: Start: 06-15-2022 [facility] Work Phone: Patient Education ED Chest Pain, Uncertain Cause [facility] Work Phone: Patient referral [facility] Work Phone: Payers Date Payer Category Payer Medicare [id number] 2024 Self-pay [id number] 2024 Unknown [id number] Unknown [facility] [id number] Unknown [id number] 2.16.8 [id number] Unknown [id number] 2.16.8 [id number] Unknown [id number] 2.16.8 [id number] Unknown [id number] 2.16.8 [id number] Unknown [id number] 2.16.8 [id number] Unknown [id number] 2.16.8 [id number] Unknown [id number] 2.16.8 [id number] Unknown [id number] 2.16.8 [id number] Unknown [id number] 2.16.8 [id number] Unknown [id number] 2.16.8 [id number] Unknown [id number] 2.16.8 [id number] Unknown [id number] 2.16.8 [id number] Unknown [id number] 2.16.8 [id number] Unknown [id number] 2.16.8 [id number] Social History Date Type Detail Facility Start: 05-10-2022 End: 04-03-2023 Tobacco smoking status NHIS Unknown if ever smoked [facility] Start: 03-29-2019 Occasional [facility] Start: 03-29-2019 None [facility] Start: 03-29-2019 Spouse/ Signif icant Other [facility] Start: 03-29-2019 Non-smoker [facility] Start: 1955 Sex Assigned At Male [facility] Start: 11-08-2023 Tobacco smoking status NHIS Never smoked tobacco (finding) [facility] Start: 12-25-2024 Sex Male (finding) [facility] Mental Status Date Assessment Result Facility 06-15-2022 Cognitive function Voice/Name [facility] Work Phone: Clinical Notes 11-20-2024 to 02-18-2025 Note Date & Type Note Facility 02-18-2025 Progress note [facility] 02-18-2025 Progress note Note Date/Time February 18, 2025 3:42pm [facility] [address] [place] [address] OFFICE VISIT Date of Service: 02/18/25 MR#: [id number] Acct: [id number] Name: EDE DE LUNA Rep #: [id number] : 1955 Provider: Dr. 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 Accompanied by: Is patient in pain?: No Allergies No Known Allergies Allergy (Verified 02/18/25 15:15) Medications ?Medication ?Instructions ?Recorded ?Confirmed ?Type aspirin 81 mg tablet,delayed 81 mg PO DAILY@0800 03/3102/18/25 Rx release cranberry 500 mg capsule 500 mg PO DAILY 05/11/21 History ibuprofen 200 mg tablet 200 mg PO Q6H PRN 06/28/22 0 02/18/25 History finasteride 5 mg tablet 5 mg PO DAILY 11/08/2302/18 History amlodipine 5 mg tablet 5 mg PO QDAY #90 tabs 02/18/25 Rx atorvastatin 20 mg tablet 20 mg PO QHS #90 tabs 02/18/25 Rx permethrin 5 % topical cream 1 applic topical Q14D 2 d oses #60 01/14/25 02/18/25 Rx grams losartan 25 mg tablet 25 mg PO DAILY #90 TABLETS 0 4/24/25 05/28/25 Rx metoprolol tartrate 25 mg tablet 25 mg PO BID #180 TAB LETS 01/15/25 02/18/25 Rx Have you fallen in the past year?: No Nurse's Note: Had been seen by vascular saw Dr. Saldana and was advised not a vascular issue to see ortho or neurology. Pt came back to figure out where to go. Pt states it was previously discussed that it could be his back if nothing was found in the legs. Pt states he saw Dr. Griffith 08/2022 was dx'd w/ Spinal stenosis and neuropathy. Pt wants to know your advice on what to do next. Pt states that the issues w/ the feet are numb and tingly they are not painful, he has issues w/ walking due to this. Pt states the feet are the worst. He has some loss of control when walking. Pt states it is slowly getting worse. 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 Hyperlipidemia Presence of stent in coronary artery (~03/30/19) Old myocardial infarction Hx of non-ST elevation myocardial infarction (NSTEMI) Essential (primary) hypertension Atherosclerosis of [place] coronary artery of [place] heart without angina pectoris NSTEMI (non-ST elevated myocardial infarction) Hypercalcemia Diverticulosis Obesity (BMI 30.0-34.9) Surgical History History of cataract surgery Presence of coronary angioplasty implant and graft (~03/30/19) Family History Father Valvular heart disease Congenital CAD (coronary artery disease) Stenting in late 60s Mother Cardiac pacemaker in situ Social History Smoking Status: Never smoker HPI HPI Details: EDE DE LUNA, is a 69 M who presents to the office today for discussion of hisleg pain. He had seen a colorman who had ordered some peripheral vascular studies. It was suspected that he had peripheral artery disease but on closer examination of the studies by the peripheral vascular specialist it was decided that the arteries are patent and that was not the cause of his problem. He has an MRI that shows severe spinal stenosis of the L4-L5 level and had seen a spinal surgery in years ago who did not think his symptoms were bad enough to require surgery. Has had progressive leg pain with ambulation and weakness of increased significantly. ROS Const Constitutional: No body ache, chills, excessive sweating, fatigue, fever(s), frequent falls, headache(s), snoring, weakness, sleep problems or change in appetite Eyes Eyes: No blurry vision, change in vision, eye pain or Light sensitivity ENT ENT: No abnormal hearing, ear or mastoid pain, tinnitus, nasal congestion, headache(s), neck pain or sore throat Resp Respiratory: No cough, shortness of breath, snoring or wheezing Cardio Cardiology: No chest pain at rest, chest pain with exertion, excessive sweating,shortness of breath, dyspnea on exertion, lightheadedness, orthopnea or palpitations Gastro GI: No abdominal pain, change in bowel habits, constipation, cramping, diarrhea,nausea/dyspepsia or vomiting Genitourinary Male: No burning urination, painful urination, urinary incontinence or urinary frequency Musc Musculoskeletal: Positive for abnormal gait, tingling and other; No joint pain, back pain, limited range of motion, neck pain or numbness Skin Skin: No dry skin, redness, lesions, itchy eyes, rash or wounds Neuro Neurology: Positive for abnormal gait and tingling; No abnormal hearing, weakness, frequent falls, headache(s), memory loss or numbness Psych Psychiatric: No anxiety, No change in appetite, No depression, No memory loss and No Thoughts of harming yourself/Others Endo Endocrine: No cold intolerance, excessive sweating, fatigue, flushing, heat intolerance, increased thirst/drinking or increased hunger Aller/Imm Allergy/Immunologic: No itchy eyes, seasonal allergy symptoms, hives or wheezing Alex/Lymp Hematologic/Lymphatic: No easy bleeding, easy bruising, enlarged lymph nodes or other Exam Const General: cooperative, healthy appearing and comfortable Nutritional Appearance: average body habitus [facility] Head: normal to inspection Eyes General: appearance normal, both eyes and all related structures Neck Neck: normal visual inspection Neck mass: No Thyroid: thyroid normal Resp Effort & Inspection: normal respiratory effort Auscultation: Bilateral: Clear to Auscultation Cardio Palpation: normal PMI Rate: regular rate Rhythm: regular rhythm Heart Sounds: no murmurs Musc Musculoskeletal: No joint tenderness Skin Rashes: rashes noted (Fading bug bites on his left arm.) Neuro General: patient alert Cranial Nerves: CN's II-XI intact bilaterally Gait: normal gait Extrem General: normal to inspection and no clubbing, cyanosis or edema Other: Surprisingly his dorsalis pedis posterior tibial pulses are all normal. Psych Appearance: grossly normal Affect: normal affect Coding Level of Care Code Off vis,est,level 3 Diagnoses Spinal stenosis of lumbar region with neurogenic claudication M48.062 Neurogenic claudication status: with neurogenic claudication Hypertension I10 Assessment and Plan Assessment and Plan (1) Spinal stenosis of lumbar region: Status: Acute Qualifiers: Neurogenic claudication status: with neurogenic claudication Qualified Code(s): M48.062 - Spinal stenosis, lumbar region with neurogenic claudication Plan: I have made the referral to the spinal surgeon. (2) Hypertension: Status: Chronic Plan: His blood pressure is well-controlled. Orders: Referrals Orthopedics M48.062 - Spinal stenosis, lumbar region with neurogenic claudication Clinical Quality Measures Falls Risk Screening/Assistive Devices Have you fallen in the past year?: No 02/18/25 1542 <Electronically signed by Devyn le DO> Date _ Devyn Moe DO Cosigner Signature: Date (if applicable) CC: ~ [facility] [employer] Work Phone: 1(560) 470-762702-27-2025 Evaluation note* Diagnosis Onset Date Resolution Status Admit Date CAD (coronary artery disease) chroni c November 20, 2024 2:34pm Claudication of lower extremity chronic November 20, 2 025 2:34pm Dyslipidemia chronic October 2:34pm Hypertension chronic October 2:34pm Presence of stent in coronar y artery March, chronic November 20, 2 025 2:34pm [facility] Work Phone: 1(934) 748-293102-27-2025 Evaluation note* Diagnosis Onset Date Resolution Status Admit Date CAD (coronary artery disease) chroni c November 20, 2024 2:34pm Claudication of lower extremity chronic November 20, 2 025 2:34pm Dyslipidemia chronic October 2:34pm Hypertension chronic October 2:34pm Presence of stent in coronar y artery March, chronic November 20, 2 025 2:34pm 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 acute A pril 2024 1:11pm Bug bites acute February 03, 2025 10:49am Spinal stenosis of lumbar region acute February 03, 2025 1 0:49am Claudication of lower extremity chronic February 03, 2025 1 0:49am Essential (primary) hypertension chronic February 03, 2025 1 0:49am Presence of stent in coronar y artery March, chronic February 03, 2025 1 0:49am [employer] Work Phone: 1(832) 448-207002-27-2025 Evaluation note* Diagnosis Onset Date Resolution Status Admit Date CAD (coronary artery disease) chroni c November 20, 2024 2:34pm Claudication of lower extremity chronic November 20, 2 025 2:34pm Dyslipidemia chronic October 2:34pm Hypertension chronic October 2:34pm Presence of stent in coronar y artery March, chronic November 20, 2 025 2:34pm 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 acute A pril 2024 1:11pm Bug bites acute February 03, 2025 10:49am Spinal stenosis of lumbar region acute February 03, 2025 1 0:49am Claudication of lower extremity chronic February 03, 2025 1 0:49am Essential (primary) hypertension chronic February 03, 2025 1 0:49am Presence of stent in coronar y artery March, chronic February 03, 2025 1 0:49am Peripheral vascular disease acute February 11, 2025 12:45pm [employer] Work Phone: 1([phone]) 414-249902-27-2025 Evaluation note* Diagnosis Onset Date Resolution Status Admit Date CAD (coronary artery disease) chroni c November 20, 2024 2:34pm Claudication of lower extremity chronic November 20, 2 025 2:34pm Dyslipidemia chronic October 2:34pm Hypertension chronic October 2:34pm Presence of stent in coronar y artery March, chronic November 20 025 2:34pm 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 acute A pril 2024 1:11pm Bug bites acute February 03, 2025 10:49am Spinal stenosis of lumbar region acute February 03, 2025 1 0:49am Claudication of lower extremity chronic February 03, 2025 1 0:49am Essential (primary) hypertension chronic February 03, 2025 1 0:49am Presence of stent in coronar y artery March, chronic February 03, 2025 1 0:49am Peripheral vascular disease acute February 11, 2025 12:45pm Spinal stenosis of lumbar region acute February 18, 2025 2 :53pm Hypertension chronic February 18 2:53pm [facility] Work Phone: Evaluation note* Diagnosis Onset Date Resolution Status CAD (coronary artery disease) acute Hyperlipidemia acute [id number] chronic Essential (primary) hypertension [facility] Work Phone: Evaluation note* Diagnosis Onset Date Resolution Status CAD (coronary artery disease) acute Hyperlipidemia acute [id number] chronic Essential (primary) hypertension chronic Idiopathic peripheral neuropathy acute Spinal stenosis of lumbar region acute [facility] Work Phone: Evaluation note* Diagnosis Onset Date Resolution Status Idiopathic peripheral neuropathy acute Spinal stenosis of lumbar region acute CAD (coronary artery disease) chronic Essential (primary) hypertension chronic Hyperlipidemia [facility] Work Phone: Evaluation note* Diagnosis Onset Date Resolution Status Abnormal EKG acute Hematuria acute Hypercalcemia acute Idiopathic peripheral neuropathy acute Low back pain acute Old myocardial infarction [place] Spinal stenosis of lumbar region acute [id number] chronic CAD (coronary artery disease) chronic Diverticulosis chronic Essential (primary) hypertension chronic Hyperlipidemia chronic Obesity (BMI 30.0-34.9) 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 Follow-up with your primary care physician if not improving or symptoms continue.[facility] Work Phone: Hospital Discharge instructionsAmbulatory Orders* Orthopedics Location: None [facility] Work Phone: Reason for referral (narrative)No reason for referral information availableWGu[facility] Work Phone: Summary Purpose Family History No Family History Records Found Relationship Condition Age at Onset Recorded Date/T [place] father Heart valve disease Unknown Coronary artery disease Unknown mother Presence of cardiac pacemaker Unknown Advance Directives No Advanced Directives Records Found Advance Directive Response Recorded Date/ Time Living Will Yes April 15, 2019 10:14am Power of Rn Patient Care Yes April 15 10:14am Advance Directive Response Recorded Date/ Time Name of Medical Power of Rn Patient Care Christine De Luna June 15, 2022 6:25am Living Will Yes June 15, 2022 6:25am Power of Rn Patient Care Yes May 6:25am Advance Directive Response Recorded Date/ Time Living Will Yes June 15, 2022 5:25am Power of Rn Patient Care Yes May 5:25am Advance Directive Response Recorded Date/ Time Living Will Yes June 15, 2022 6:25am Power of Rn Patient Care Yes May 6:25am Chief Complaint and Reason for Visit Chief Complaint 1 Y FU E ORDER Reason for Visit CAD (coronary artery disease) Hyperlipidemia [id number] Essential (primary) hypertension Chief Complaint 1 Y FU E ORDER Chest pain Reason for Visit CAD (coronary artery disease) Hyperlipidemia [id number] Essential (primary) hypertension Chief Complaint 1 Y FU E ORDER Chest pain LUMBER SPINE xray LOW BACK PAIN Reason for Visit CAD (coronary artery disease) Hyperlipidemia [id number] Essential (primary) hypertension Idiopathic peripheral neuropathy Spinal stenosis of lumbar region Chief Complaint HEREDITARY AND IDIOP ATHIC NEROPATHY Lumbar spine 6 M FU E ORDERS Reason for Visit Idiopathic periphera l neuropathy Spinal stenosis of lumbar region CAD (coronary artery disease) Essential (primary) hypertension Hyperlipidemia Chief Complaint COURT USHER. EST CARE - HAS P PW Reason for Visit Abnormal EKG Hematuria Hypercalcemia Idiopathic peripheral neuropathy Low back pain Old myocardial infarction Spinal stenosis of lumbar region [id number] CAD (coronary artery disease) Diverticulosis Essential (primary) hypertension Hyperlipidemia Obesity (BMI 30.0-34.9) Presence of stent in coronary artery Chief Complaint COURT USHER. EST CARE - HAS P PW HEMATURIA PVD Reason for Visit Abnormal EKG Hematuria Hypercalcemia Idiopathic peripheral neuropathy Low back pain Old myocardial infarction Spinal stenosis of lumbar region [id number] CAD (coronary artery disease) Diverticulosis Essential (primary) hypertension Hyperlipidemia Obesity (BMI 30.0-34.9) Presence of stent in coronary artery Chief Complaint Admit Date 2 ORDERING DOCTORS November 03, 2024 9:34am 1 Y FU November 20, 2024 2:34pm ASHD December 23, 2024 7:01 am Reason for Visit Admit Date CAD (coronary artery disease) October 262024 2:34pm Claudication of lower extremity November 20, 2024 2:34pm Dyslipidemia November 20, 2024 2:34pm Hypertension November 20, 2024 2:34pm Presence of stent in coronary artery Feb ruary 2024 2:34pm Chief Complaint Admit Date 2 ORDERING DOCTORS November 03, 2024 9:34am 1 Y FU November 20, 2024 2:34pm ASHD December 23, 2024 7:01 am ASHD December 25, 2024 12:0 6pm L ARM RASH/POSS SHINGLES January 14 1:11pm ABNORMAL CLARISSA/ LT LEG January 16, 2025 3: 41pm SPOTS ON ARM February 03, 2025 10:49 am Reason for Visit Admit Date CAD (coronary artery disease) October 262024 2:34pm Claudication of lower extremity November 20, 2024 2:34pm Dyslipidemia November 20, 2024 2:34pm Hypertension November 20, 2024 2:34pm Presence of stent in coronary artery Feb ruary 2024 2:34pm 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 January 14, 2025 1:11pm Bug bites February 03, 2025 10:49 am Spinal stenosis of lumbar region January 10:49am Claudication of lower extremity January 10:49am Essential (primary) hypertension January 10:49am Presence of stent in coronary artery February 03, 2025 10:49am Chief Complaint Admit Date 2 ORDERING DOCTORS November 03, 2024 9:34am 1 Y FU November 20, 2024 2:34pm ASHD December 23, 2024 7:01 am ASHD December 25, 2024 12:0 6pm L ARM RASH/POSS SHINGLES January 14 1:11pm ABNORMAL CLARISSA/ LT LEG January 16, 2025 3: 41pm SPOTS ON ARM February 03, 2025 10:49 am Peripheral vascular disease February 11 12:45pm Reason for Visit Admit Date CAD (coronary artery disease) October 262024 2:34pm Claudication of lower extremity November 20, 2024 2:34pm Dyslipidemia November 20, 2024 2:34pm Hypertension November 20, 2024 2:34pm Presence of stent in coronary artery Feb ruary 2024 2:34pm 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 January 14, 2025 1:11pm Bug bites February 03, 2025 10:49 am Spinal stenosis of lumbar region January 10:49am Claudication of lower extremity January 10:49am Essential (primary) hypertension January 10:49am Presence of stent in coronary artery February 03, 2025 10:49am Peripheral vascular disease February 11 12:45pm Chief Complaint Admit Date 2 ORDERING DOCTORS November 03, 2024 9:34am 1 Y FU November 20, 2024 2:34pm ASHD December 23, 2024 7:01 am ASHD December 25, 2024 12:0 6pm L ARM RASH/POSS SHINGLES January 14 1:11pm ABNORMAL CLARISSA/ LT LEG January 16, 2025 3: 41pm SPOTS ON ARM February 03, 2025 10:49 am Peripheral vascular disease February 11 12:45pm BACK PAIN February 18, 2025 2:53p m Reason for Visit Admit Date CAD (coronary artery disease) October 262024 2:34pm Claudication of lower extremity November 20, 2024 2:34pm Dyslipidemia November 20, 2024 2:34pm Hypertension November 20, 2024 2:34pm Presence of stent in coronary artery Feb ruary 2024 2:34pm 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 January 14, 2025 1:11pm Bug bites February 03, 2025 10:49 am Spinal stenosis of lumbar region January 10:49am Claudication of lower extremity January 10:49am Essential (primary) hypertension January 10:49am Presence of stent in coronary artery February 03, 2025 10:49am Peripheral vascular disease February 11 12:45pm Spinal stenosis of lumbar region January 2:53pm Hypertension February 18, 2025 2:53p m Chief Complaint Admit Date 1 Y FU November 20, 2024 2:34pm ASHD December 23, 2024 7:01 am ASHD December 25, 2024 12:0 6pm L ARM RASH/POSS SHINGLES January 14 1:11pm ABNORMAL CLARISSA/ LT LEG January 16, 2025 3: 41pm SPOTS ON ARM February 03, 2025 10:49 am Peripheral vascular disease February 11 12:45pm BACK PAIN February 18, 2025 2:53p m LUMBAR SPINE March 06, 2025 10:1 9am Room 5 March 06, 2025 11:1 1am Additional Source Comments (unrecognized sect ion and content) No Status Records FoundNo Status Records Found INFORMATION SOURCE (unrecogn ized section and content) DATE CREATED AUTHOR 12/25/2020 [facility] ([place]) DATE CREATED AUTHOR AUTHOR'S ORGANIZ ATION 04/10/2025 [facility] Goals (unrecognized section and content) Goals may be documented in a n alternate sectionGoals may be documented in an alternate sectionGoals may be documented in an alternate sectionGoals may be documented in an alternate sectionGoals may be documented in an alternate sectionGoals may be documented in an alternate sectionGoals may be documented in an alternate sectionGoals may be documented in an alternate sectionGoals may be documented in an alternate sectionGoals may be documented in an alternate sectionGoals may be documented in an alternate sectionGoals may be documented in an alternate sectionGoals may be documented in an alternate section Care Teams (unrecognized sec tion and content) Team Status: Active Member Role Status Dates Dr. Arline Arnold , DO Family Provider Active Dr. Arline Arnold , DO Primary Care Provider Activ e Team Status: Inactive Member Role Status Dates Dr. Arline Arnold , DO Primary Care Provider, Refe rring Provider Active Sanjay Lowry COURT USHER, COURT USHER-C Attending Provider Active Team Status: Inactive Member Role Status Dates Dr. Arline Arnold , DO Primary Care Provider, Refe rring Provider Active Dr. Praveen Griffith , DO Attending Provider Active Team Status: Inactive Member Role Status Dates Dr. Arline Arnold , DO Primary Care Provider Activ e Dr. Praveen Griffith , DO Attending Provider Active Team Status: Inactive Member Role Status Dates Dr. Arline Arnlod , DO Primary Care Provider Activ e Dr. Tevin Henry MD Attending Provider, Referring Provider Active Team Status: Active Member Role Status Dates Dr. Arline Arnold , DO Family Provider Active Dr. Devyn Meo , DO Primary Care Provider Active Team Status: Inactive Member Role Status Dates Dr. Arline Arnold , DO Primary Care Provider, Refe rring Provider Active Dr. Devyn Moe , DO Attending Provider Active Team Status: Inactive Member Role Status Dates Dr. Arline Arnold , DO Primary Care Provider Activ e Dr. Devyn Moe , DO Attending Provider Active Team Status: Active Member Role Status Dates Dr. Devyn Moe , DO Primary Care Provider Active Dr. Kip Newberry MD Attending Provider Active Team Status: Inactive Member Role Status Dates Dr. Devyn Moe , DO Primary Care Pr ovider, Attending Provider, Referring Provider Active Team Status: Active Member Role Status Dates Dr. Devyn Moe , DO Primary Care Provider Active Dr. Warren Lomax MD Attending Provider, Referr ing Provider Active Team Status: Inactive Member Role Status Dates Dr. Devyn Moe , DO Primary Care Provider Active Dr. Warren Lomax MD Attending Provider, Referr ing Provider Active Team Status: Active Member Role Status Dates Dr. Devyn Moe , DO Primary Care Provider Active Team Status: Inactive Member Role Status Dates Dr. Devyn Moe , DO Primary Care Provider Active Start: November 03, 2024 End: November 03, 2024 Dr. Warren Lomax MD Attending Provider Active Start: November 03, 2024 End: November 03, 2024 Dr. Warren Lomax MD Referring Provider Active Start: November 03, 2024 End: November 03, [address] USHER, COURT USHER-C Other Provider Active Start : November 03, 2024 End: November 03, 2024 Team Status: Inactive Member Role Status Dates Dr. Devyn Moe DO Primary Care Provider Active Start: November 20, 2024 End: November 20, 2024 Dr. Devyn Moe DO Referring Provider Active Start: November 20, 2024 End: November 20, 2024 Dr. Rosalie Shaver MD Attending Provider Active Start: November 20, 2024 End: November 20, 2024 Team Status: Inactive Member Role Status Dates Dr. Devyn Moe DO Primary Care Provider Active Start: December 23, 2024 End: December 23, 2024 Dr. Rosalie Shaver MD Attending Provider Active Start: December 23, 2024 End: December 23, 2024 Dr. Rosalie Shaver MD Referring Provider Active Start: December 23, 2024 End: December 23, 2024 Team Status: Active Member Role Status Dates Dr. Devyn Moe DO Primary Care Provider Active Start: December 23, 2024 Dr. Kip Newberry MD Attending Provider Active S tart: December 23, 2024 Team Status: Active Member Role Status Dates Dr. Devyn Moe DO Primary Care Provider Active Start: December 23, 2024 Dr. Rosalie Shaver MD Attending Provider Active Start: December 23, 2024 Team Status: Active Member Role Status Dates Dr. Devyn Moe DO Primary Care Provider Active Start: December 23, 2024 Dr. Kip Newberry MD Attending Provider Active S tart: December 23, 2024 Dr. Rosalie Shaver MD Referring Provider Active Start: December 23, 2024 Team Status: Active Member Role Status Dates Dr. Devyn Moe DO Primary Care Provider Active Start: December 25, 2024 Dr. Rosalie Shaver MD Attending Provider Active Start: December 25, 2024 Dr. Rosalie Shaver MD Referring Provider Active Start: December 25, 2024 Dr. Rosalie Shaver MD Other Provider Active Star t: December 25, 2024 Team Status: Inactive Member Role Status Dates Dr. Devyn Moe DO Primary Care Provider Active Start: January 14, 2025 End: January 14, 2025 Dr. Devyn Moe DO Referring Provider Active Start: January 14, 2025 End: January 14, 2025 Satish NAYLOR, PA Attending Provider Active Start: January 14, 2025 End: January 14, 2025 Team Status: Inactive Member Role Status Dates Dr. Devyn Moe DO Primary Care Provider Active Start: January 16, 2025 End: January 16, [address] USHER, COURT USHER-C Attending Provider Active S tart: January 16, 2025 End: January 16, [address] USHER, COURT USHER-C Referring Provider Active S tart: January 16, 2025 End: January 16, 2025 Team Status: Inactive Member Role Status Dates Dr. Devyn Moe DO Primary Care Provider Active Start: February 03, 2025 End: February 03, 2025 Dr. Devyn Moe DO Attending Provider Active Start: February 03, 2025 End: February 03, 2025 Dr. Devyn Moe DO Referring Provider Active Start: February 03, 2025 End: February 03, 2025 Team Status: Inactive Member Role Status Dates Dr. Devyn Moe DO Primary Care Provider Active Start: February 11, 2025 End: February 11, 2025 CYNDY Mchugh Attending Provider Active Star t: February 11, 2025 End: February 11, [address] USHER, COURT USHER-C Referring Provider Active S tart: February 11, 2025 End: February 11, 2025 Team Status: Inactive Member Role Status Dates Dr. Devyn Moe DO Primary Care Provider Active Start: February 18, 2025 End: February 18, 2025 Dr. Devyn Moe DO Attending Provider Active Start: February 18, 2025 End: February 18, 2025 Dr. Devyn Moe DO Referring Provider Active Start: February 18, 2025 End: February 18, 2025 Team Status: Active Member Role Status Dates Dr. Devyn Moe DO Primary Care Provider Active Start: March 06, 2025 Dr. Devyn Moe DO Referring Provider Active Start: March 06, 2025 CYNDY Little Attending Provider Active Star t: March 06, 2025 Team Status: Inactive Member Role Status Dates Dr. Devyn Moe DO Primary Care Provider Active Start: March 06, 2025 End: March 06, 2025 Dr. Jasiel Castillo MD Attending Provider Active S tart: March 06, 2025 End: March 06, 2025 Team Status: Inactive Member Role Status Dates Dr. Devyn Moe DO Primary Care Provider Active Start: March 06, 2025 End: March 06, 2025 Dr. Devyn Moe DO Referring Provider Active Start: March 06, 2025 End: March 06, 2025 CYNDY Little Attending Provider Active Star t: March 06, 2025 End: March 06, 2025 FOR RECORDS PERTAINING TO PATIENTS WHO ARE OR HAVE BEEN ENROLLED IN A CHEMICAL DEPENDENCY/SUBSTANCEABUSE PROGRAM, SOME INFORMATION MAY BE OMITTED. This clinical summary was aggregated from multiple sources. Caution should be exercised in using it in the provision of clinical care. This summary normalizes information from multiple sources, and as a consequence, information in this document may materially change the coding, format and clinical context of patient data. In addition, data may be omitted in some cases. CLINICAL DECISIONS SHOULD BE BASED ON THE PRIMARY CLINICAL RECORDS. [employer] provides no warranty or guarantee of the accuracy or completeness of information in this document.
--- NOTE | 2025-04-13 06:55 | MRI_ITS ---
PROCEDURE: SPINE LUMBAR (ROUTINE), 04/13/2025 REASON FOR EXAM: DDD LUMBAR TECHNIQUE: Multisequence multiplanar MR of the lumbar spine was performed without IV contrast. IV contrast: None. COMPARISON: 03/06/2025 FINDINGS: Vertebral body heights are preserved. Mild degenerative type marrow signal changes greatest at L4-L5. Suspect a small T1 bright T12 vertebral body hemangioma. Trace likely degenerative grade 1 retrolisthesis at L1-L2. Similar mild grade 1 likely degenerative anterolisthesis at L3-L4. Similar mild lumbar levoscoliosis. Conus medullaris terminates normally at the L1 level. Crowding of the cauda equina related to the below stenoses with upstream redundancy noted as may be seen in the setting of severe spinal canal stenosis. Diffuse disc desiccation. Additional level by level findings as below: L1-2: Incompletely imaged vertebral body at this level on axial sequences, level is completely visualized on all sagittal sequences obtained. Diffuse disc bulging. Tiny RIGHT paracentral annular fissure. Superimposed small broad-based bilateral foraminal disc protrusions, YMFJU-quftgjf-hqin-LEFT. Mild facet arthropathy. Mild spinal canal stenosis with incomplete effacement of CSF. Effacement of the RIGHT lateral recess. At least mild/moderate RIGHT foraminal stenosis incompletely evaluated as the level is not imaged entirely on axial images. No significant LEFT foraminal stenosis. L2-3: Prominent diffuse disc bulging with slight superimposed MRTQ-ptnfzxy-zskr-RIGHT foraminal protrusions. Facet arthropathy. Mild ligamentum flavum hypertrophy. Wybydqsc-dw-cmvqer focal spinal canal stenosis with near-complete effacement of CSF, spinal canal dimensions 12 x 8 mm. Effacement of the bilateral lateral recesses. Mild bilateral foraminal stenoses. L3-4: Anterolisthesis with disc uncovering as above. Diffuse disc bulging with superimposed RIGHT subarticular and foraminal disc protrusion. Severe/critical spinal canal stenosis with complete effacement of CSF and spinal canal dimensions roughly 5 x 6 mm with upstream redundant appearance of the cauda equina. Effacement of bilateral lateral recesses. Facet arthropathy. Ligamentum flavum hypertrophy. Moderate LEFT YDYG-xzyvuxw-ovph-RIGHT foraminal stenosis. L4-5: Diffuse disc bulging asymmetric to the LEFT. Tiny posterior central annular fissure.. Facet arthropathy. Mild ligamentum flavum hypertrophy. Uspgvhyf-aa-gzcdar focal spinal canal stenosis with incomplete effacement of CSF, spinal canal dimensions roughly 10 x 10 mm. Narrowing of the bilateral lateral recesses. Moderate LEFT and rcnm-bf-nyhbybvu RIGHT foraminal stenoses. L5-S1: Diffuse disc bulging. Superimposed LEFT lateral and anterior disc protrusion with osteophytes. No significant focal spinal canal stenosis. Facet arthropathy. Jvrtvcog-fr-mdclii NXUXA-rlgdalu-rsbc-LEFT foraminal stenoses. Other: Partially imaged presumed RIGHT renal cyst measures at least 6.3 cm.. Partially imaged presumed LEFT renal cyst measures at least 1.2 cm. Additional presumed 0.9 cm LEFT renal cyst. These are incompletely characterized in the absence of IV contrast. Diverticulosis. Apparent fusiform ectasia of the RIGHT common iliac artery to 2.3 cm, not well evaluated. MRI/Spine Lumbar (Routine) IMPRESSION: 1. Multilevel spondylosis as described, most notably including severe/critical spinal canal stenosis at L3-L4 with spinal canal measuring roughly 5 x 6 mm and redundant appearance of the upstream cauda equin a as can be seen in high-grade stenosis, similar appearance to 07/12/2022. Otherwise, variable spinal canal stenoses up to mode fxil-la-tymjjj at L2-L3. Variable foraminal stenoses up to uvyasmpb-yf-yhnqck at L5-S1 bilaterally. 2. Apparent fusiform ectasia of the RIGHT common iliac artery to 2.3 cm, not we ll evaluated. 3. Additional description as above. Reading Location: [id number]
== END | disposition home or self-care (01) ==
LOC: OPMRI 06:50
PROVIDERS: PCP Family Medicine; Referring Provider Student in an Organized Health Care Education/Training Program; Visit Provider Student in an Organized Health Care Education/Training Program
DX: M51.362 Other intervertebral disc degeneration, lumbar region with discogenic back pain and lower extremity pain (principal); M48.062 Spinal stenosis, lumbar region with neurogenic claudication
CPT/HCPCS: 72148

== ENCOUNTER → 2025-05-13 | Outpatient (CLI) | payer MEDICARE, OTHER, SELFPAY ==
[2025-05-13 09:27] LABS: AST(SGOT) 28 U/L (<=37); Alanine Aminotransfer ALT/SGPT 26 U/L (<=46); Albumin, Serum 4.1 g/dL (3.4-4.8); Alkaline Phosphatase 88 U/L (40-129); Bilirubin, Direct 0.15 mg/dL (0.00-0.30); Cholesterol 120 mg/dL (<=200); Globulin 2.6 g/dL (2.2-4.2); Low Density Lipoprotein Calc. 41 mg/dL; Triglycerides 112 mg/dL; Very Low Density Lipoprotein 22 mg/dL (5-40); cholesterol:hdl ratio screen 2.11
== END | disposition home or self-care (01) ==
LOC: LAB 08:15
PROVIDERS: PCP Family Medicine; Referring Provider Nurse Practitioner Family; Visit Provider Nurse Practitioner Family
DX: E78.2 Mixed hyperlipidemia (principal)
CPT/HCPCS: 36415; 80061; 80076

== ENCOUNTER 2025-09-21 13:52 | Observation (INO) | payer MEDICARE, OTHER, SELFPAY ==
--- NOTE | 2025-08-25 09:17 | EKG12_ITS ---
Test Reason : PREOP Blood Pressure : */* mmHG Vent. Rate : 72 BPM Atrial Rate : 72 BPM P-R Int : 180 ms QRS Dur : 84 ms QT Int : 380 ms P-R-T Axes : 20 12 70 degrees QTcB Int : 416 ms Normal sinus rhythm Septal infarct , age undetermined Abnormal ECG Confirmed by Jose Rafael Rodríguez ([id number]), subeditor STERLING COLE ([id number]) on 08/26/2025 5:51:04 AM Referred By: Stanton Merlos Confirmed By: Jose Rafael Rodríguez
[2025-08-25 10:08] LABS: Hematocrit 44.9 % (40-54); Hemoglobin 14.9 g/dL (13.0-16.5); Immature Granulocytes Count 0.020 X10^3/uL (0.0-0.0); Mean Corp Hgb Conc 33.2 g/dL (32-36); Mean Corpuscular Volume 87.4 fL (80-94); Mean Platelet Vol. 9.1 fl (6.2-12.0); NRBC Flagged by Analyzer 0 % (0-5); Platelet Count 180 K/mm3 (150-450); RBC Distribution Width CV 12.6 % (11.6-14.6); RBC Distribution Width SD 39.9 fl (35.1-43.9); Red Blood Count 5.14 M/mm3 (4.6-6.2); White Blood Count 6.8 K/mm3 (4.4-11.0)
[2025-08-25 10:35] LABS: Anion Gap 11 (5-15); BUN 14 mg/dL (4-19); BUN/Creat Ratio 15.7 RATIO (10-20); Calcium,Total 9.9 mg/dL (7.6-11.0); Carbon Dioxide 24.0 mmol/L (21.0-32.0); Chloride 107 mmol/L (98-108); Glucose 90 mg/dL (70-99); Potassium 4.2 mmol/L (3.3-5.1)
[2025-08-25 11:25] LABS: Magnesium 2.0 mg/dL (1.5-2.2)
--- NOTE | 2025-08-26 09:23 | PAT.ANESEVAL ---
Pre-Assessment Diagnosis/Proposed Procedure Planned Operative Procedure(s): ERAS LUMBAR LAMINECTOMY L3-4 Anesthesia History Anesthesia History - touch up painter: Anesthesia History - touch up painter Hx Hospitalization No 08/19/25 08:25 Any Problems With Anesthesia No 08/19/25 08:25 Cholinesterase deficiency No 08/19/25 08:25 You/Your Family Experience No 08/19/25 08:25 fever (hyperthermia) with Relationship Recent Exposure to Contagious Disease Does patient have nerve No 08/19/25 08:25 stimulator Patient instructed to have device shut off --Does patient have Pacemaker or ICD? When Was Last Pacemaker Check QUESTION #4 FULL TEXT: You/Your Family Experience fever (hyperthermia) with Anesthesia Last Oral Intake Last Oral intake: Last Oral Intake NPO since Meds taken in AM with sips of water? Meds patient instructed to take am of surgery PONV PONV - touch up painter: PONV - touch up painter Female No 08/19/25 08:25 HX of Motion Sickness No 08/19/25 08:25 HX of N/V After Surgery No 08/19/25 08:25 Non-Smoker Yes 08/19/25 08:25 Duration of Surgery greater Yes 08/19/25 08:25 than 60 minutes Number of Risk Factors 2 08/19/25 08:25 PONV Score Moderate Risk 08/19/25 08:25 Height & Weight Height & Weight: Anesthesia: Height & Weight Height 5 ft 4 in 02/18/25 15:16 Respiratory Assessment Respiratory Assessment - touch up painter: Respiratory Tract Infection Hx - touch up painter Hx Respiratory Tract Infection No 08/19/25 08:25 STOP Sleep Apnea STOP Sleep Apnea - touch up painter: STOP Sleep Apnea - touch up painter Hx Hypertension Yes: CONTROLLED WITH MED 08/19/25 08:25 Hx Sleep Apnea No 08/19/25 08:25 CPAP BIPAP Do you snore loudly (louder No 08/19/25 08:25 than talking or can be heard Do you often feel tired/ No 08/19/25 08:25 fatigued/ sleepy during daytime? Has anyone observed you stop No 08/19/25 08:25 breathing during sleep? STOP Results Negative 08/19/25 08:25 QUESTION #5 FULL TEXT : Do you snore loudly (louder than talking or can be heard through closed doors)? Tobacco Use History Tobacco Use History - touch up painter: Tobacco Use History - touch up painter Tobacco Use Smoking Status Never smoker 08/19/25 08:25 Hx Tobacco Use No 08/19/25 08:25 Years Smoking Packs Smoked per Day Smoking Cessation Date was within the last 15 years Hx Smoking Cessation Date Hx Smoking Cessation Counseling Hematologic Medial History Hematologic Hx - touch up painter: Hematologic Medical Hx - rn documentation Hx of Blood Transfusion No 08/19/25 08:25 Hx of Transfusion in last 3 No 08/19/25 08:25 Months Date of Last Transfusion (if within last 3 months) Ever experience any problems No 08/19/25 08:25 with transfusion(s)? Specify any problems Hx of Preganancy in last 3 N/A 08/19/25 08:25 Months Nurse Filling Out Transfusion DSCHRIBER 08/19/25 08:25 & Questions: Date: 08/19/25 08/19/25 08:25 Time: 08:28 08/19/25 08:25 Patient unable to answer at this time (ie. confused, unrespo /Reproduction History /Reproductive History - touch up painter: /Reproductive Hx- touch up painter Hx Now No 08/19/25 08:25 Gestational Age (in weeks): EDC: Hx Hx Para Hx Section SAB No 08/19/25 08:25 Does the father of the baby or his family experience fever w Father of the baby Malignant Hypertension history [facility] History Loss of hearing Wears glasses Prostate disease Back pain Injury of back Migraine headache Heartburn Non-smoker Leg cramps History of pain when walking Hypertension History of diverticulosis History of echocardiogram History of stress test Cardiology follow-up encounter Hx of chronic ear infection Hx of retinal detachment Hx of retinal detachment Degenerative scoliosis Central stenosis of spinal canal Neurogenic claudication Hyperlipidemia Presence of stent in coronary artery (~03/30/19) Hx of non-ST elevation myocardial infarction (NSTEMI) Atherosclerosis of [place] coronary artery of [place] heart without angina pectoris NSTEMI (non-ST elevated myocardial infarction) Obesity (BMI 30.0-34.9) Home Medications ?Medication ?Instructions ?Recorded ?Last Taken ?Type aspirin 81 mg tablet,delayed 81 mg PO DAILY@0800 03/31/19 Unknown Rx release cranberry 500 mg capsule 500 mg PO DAILY 05/11/21 Unknown History ibuprofen 200 mg tablet 200 mg PO Q6H PRN pain 06/28/22 Unknown History finasteride 5 mg tablet 5 mg PO DAILY 11/08/23 Unknown History amlodipine 5 mg tablet 5 mg PO QDAY #90 tabs 11/20/24 Unknown Rx losartan 25 mg tablet 25 mg PO DAILY #90 TABLETS 01/15/25 Unknown Rx metoprolol tartrate 25 mg tablet 25 mg PO BID #180 TABLETS 01/15/25 Unknown Rx atorvastatin 20 mg tablet 20 mg PO QHS 08/19/25 Unknown History vit C 250 mg-vit E 90 mg-zinc 40 1 tab PO BID 08/19/25 Unknown History mg-copper 1 [id number] capsule ([facility] AREDS-2) Allergy/AdvReac Type Severity Reaction Status Date / Time No Known Allergies Allergy Verified 08/25/25 10:53 Family History Father Valvular heart disease Congenital CAD (coronary artery disease) Stenting in late 60s Mother Cardiac pacemaker in situ Surgical History History of cardiac catheterization Hx of colonoscopy Hx of right cataract extraction Hx of eye surgery Presence of coronary angioplasty implant and graft (~03/30/19) Social History Smoking Status: Never smoker alcohol intake: never substance use type: does not use caffeine: Yes Type: coffee Number of servings: 2 Audit: Pertinent Findings Pertinent Findings EKG Perinent findings: 08/25/2025. Normal sinus rhythm 72 bpm. Septal infarct, age undetermined. Echo (EF%) pertinent findings: 12/23/2024. EF 65%. Pulmonary artery pressure 39. Consult pertinent findings: Cardiology 05/20/2025. Coronary artery disease. Stent proximal diagonal. Stress test 12/25/2024 negative. Continue to monitor. Hypertension. Chronic. Controlled. Preoperative cardiac vascular exam. No further workup from cardiac standpoint. Recommendation Anesthesia Recommendation Anesthesia recommendation: OPTIMIZED for anesthesia
[2025-09-21] VITALS (15 sets, daily range): BP systolic 114–142; BP diastolic 6–75; PULSE 52–97; RESP 14–18; TEMP 36.1–37.1; O2SAT 96–100; BMI 29.2
[2025-09-21] MEDS: Lactated Ringers 1,000 ML 15 ML IV (10:29)
[2025-09-21] MEDS: Magnesium 1 GM over 15 mins IV (10:31)
--- NOTE | 2025-09-21 10:43 | PRE.ANES_ITS ---
ASA Classification* ASA Classification ASA Classification: 2 Assessment & Plan Anesthesia* Anesthesia Assessment Anesthesia Assessment: Discussed sedation and/or anesthesia options, risks, benefits, and alternatives with patient/parents/legal guardian/POA. Questions invited. The patient/parents/legal guardian/POA seems to understand and agrees to proceed with anesthesia plan. Reviewed the physical assessment, medical history, allergy history and patient home medications list prior to surgery/procedure/anesthetic and documented any changes. Performed airway and anesthesia risk assessments. Anesthesia Type Anesthesia Type: General History Source History Obtained from:: Patient, Chart and Significant Other (Spouse and son in the room) Anesthesia Focused Assessment* Temperature: 97.9 F Pulse Rate: 79 Blood Pressure: 142/74 Respiratory Rate: 14 Pulse Ox: 97 Oxygen Delivery Method: Room Air Airway Assessment Mouth opens: >3 cm Mallampati Score: II Teeth Condition: Missing Neck Range of motion (ROM): Full ROM Labs Anesthesia Preop lab: CBC WBC, (4.4-11.0) 6.8 K/mm3 08/25/25, :44 RBC, (4.6-6.2) 5.14 M/mm3 08/25/25, :44 Hgb, (13.0-16.5) 14.9 g/dL 08/25/25, :44 Hct, (40-54) 44.9 % 08/25/25, :44 Plt Count, (150-450) 180 K/mm3 08/25/25, :44 CHEMISTRY Potassium, (3.3-5.1) 4.2 mmol/L 08/25/25, :44 Sodium, (133-145) 142 mmol/L 08/25/25, :44 Magnesium, (1.5-2.2) 2.0 mg/dL 08/25/25, :43 BUN, (4-19) 14 mg/dL 08/25/25, :44 Creatinine, (0.70-1.20) 0.91 mg/dL 08/25/25, :44 Glucose, (70-99) 90 mg/dL 08/25/25, 09:44 COAG PT, (11.7-14.9) 13.5 SECONDS 03/29/19, 15:15 Pre-Assessment Diagnosis/Proposed Procedure Planned Operative Procedure(s): ERAS LUMBAR LAMINECTOMY L3-4 Anesthesia History 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 When Was Last Pacemaker Check QUESTION #4 FULL TEXT: You/Your Family Experience fever (hyperthermia) with Anesthesia Last Oral Intake Last Oral intake: Last Oral Intake NPO since 07:50 09/21/25 10:23 Meds taken in AM with sips of Yes 09/21/25 10:23 water? 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 Female No 09/14/25 14:01 HX of Motion Sickness No 09/14/25 14:01 HX of N/V After Surgery No 09/14/25 14:01 Non-Smoker Yes 09/14/25 14:01 Duration of Surgery greater Yes 09/14/25 14:01 than 60 minutes Number of Risk Factors 2 09/14/25 14:01 PONV Score Moderate Risk 09/14/25 14:01 Height & Weight Height & Weight: Anesthesia: Height & Weight Height 5 ft 3 in 09/21/25 10:23 Weight: 75 kg 09/21/25 10:23 Body Mass Index (BMI) 29.2 09/21/25 10:23 Respiratory Assessment Respiratory Assessment - landscape architecture teacher: Respiratory Tract Infection Hx - landscape architecture teacher Hx Respiratory Tract Infection No 09/14/25 14:01 STOP Sleep Apnea STOP Sleep Apnea - landscape architecture teacher: STOP Sleep Apnea - landscape architecture teacher Hx Hypertension Yes: CONTROLLED ON MED 09/14/25 14:01 Hx Sleep Apnea No 09/14/25 14:01 CPAP BIPAP Do you snore loudly (louder No 09/14/25 14:01 than talking or can be heard Do you often feel tired/ No 09/14/25 14:01 fatigued/ sleepy during daytime? Has anyone observed you stop No 09/14/25 14:01 breathing during sleep? STOP Results Negative 09/14/25 14:01 QUESTION #5 FULL TEXT : Do you snore loudly (louder than talking or can be heard through closed doors)? 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 Specify any problems Hx of Preganancy in last 3 N/A 09/14/25 14:01 Months Nurse Filling Out Transfusion VCHRISTIN 09/14/25 14:01 & Questions: Date: 09/14/25 09/14/25 14:01 Time: 14:01 09/14/25 14:01 Patient unable to answer at this time (ie. confused, unrespo /Reproduction History /Reproductive History - landscape architecture teacher: /Reproductive Hx- landscape architecture teacher Hx Now No 09/14/25 14:01 Gestational Age (in weeks): EDC: Hx Hx Para Hx Section SAB No 09/14/25 14:01 Does the father of the baby or his family experience fever w Father of the baby Malignant Hypertension history comment Active Medications Active Medications: Current Medications Generic Name Dose Route Start Last Admin Trade Name Freq PRN Reason Stop Dose Admin Acetaminophen 1,000 mg 09/21/25 12:00 09/21/25 10:31 Acetaminophen 500 Mg Tablet PO 09/21/25 12:01 1,000 mg PREOP ONE Administration Cefazolin Sodium 2 gm/ Sodium 110 mls @ 150 mls/hr 09/21/25 12:00 Chloride IV 09/21/25 12:43 INTRAOP ONE Tranexamic Acid 1,000 mg/ 110 mls @ 440 mls/hr 09/21/25 12:00 Sodium Chloride IV 09/21/25 12:14 INTRAOP ONE Tranexamic Acid 1,000 mg/ 110 mls @ 440 mls/hr 09/21/25 12:00 Sodium Chloride IV 09/21/25 12:14 INTRAOP ONE Magnesium Sulfate 1 gm/ 102 mls @ 408 mls/hr 09/21/25 12:00 09/21/25 10:31 Dextrose IV 09/21/25 12:14 408 mls/hr PREOP ONE Administration Lactated Ringer's 1,000 mls @ 15 mls/hr 09/21/25 10:15 09/21/25 10:29 IV 15 mls/hr .Q48H CHRIS Administration Insulin Human Lispro 1 - 6 unit 09/21/25 12:00 Insulin Lispro 100 Unit/Ml Insuln.Pen SC 09/21/25 18:00 Q4H PRN PRN BG>/= 180, SEE PROTOCOL Protocol PFSH Medical History Loss of hearing Wears glasses Prostate disease Back pain Injury of back Migraine headache Heartburn Non-smoker Leg cramps History of pain when walking Hypertension History of diverticulosis History of echocardiogram History of stress test Cardiology follow-up encounter Hx of chronic ear infection Hx of retinal detachment Hx of retinal detachment Degenerative scoliosis Central stenosis of spinal canal Neurogenic claudication Hyperlipidemia Presence of stent in coronary artery (~03/30/19) Hx of non-ST elevation myocardial infarction (NSTEMI) Atherosclerosis of [place] coronary artery of [place] heart without angina pectoris NSTEMI (non-ST elevated myocardial infarction) Obesity (BMI 30.0-34.9) Home Medications ?Medication ?Instructions ?Recorded ?Last Taken ?Type aspirin 81 mg tablet,delayed 81 mg PO DAILY@0800 03/3109/14/25 Rx release cranberry 500 mg capsule 500 mg PO DAILY 05/11/21 History ibuprofen 200 mg tablet 200 mg PO Q6H PRN pain 06/28 Unknown History finasteride 5 mg tablet 5 mg PO DAILY 11/08/2309/21 08:30 History amlodipine 5 mg tablet 5 mg PO QDAY #90 tabs 09/20/25 Rx losartan 25 mg tablet 25 mg PO DAILY #90 TABLETS 0 01/15/25 09/21/25 08:30 Rx metoprolol tartrate 25 mg tablet 25 mg PO BID #180 TAB LETS 01/15/25 09/21/25 08:30 Rx atorvastatin 20 mg tablet 20 mg PO QHS 08/19/25 History vit C 250 mg-vit E 90 mg-zinc 40 1 tab PO BID 08/19/25 09/20/25 History mg-copper 1 [id number] capsule ([facility] AREDS-2) Allergy/AdvReac Type Severity Reaction Status Date / Time No Known Allergies Allergy Verified 09/21/25 10:21 Family History Father Valvular heart disease Congenital CAD (coronary artery disease) Stenting in late 60s Mother Cardiac pacemaker in situ Surgical History History of cardiac catheterization Hx of colonoscopy Hx of right cataract extraction Hx of eye surgery Presence of coronary angioplasty implant and graft (~03/30/19) Social History Smoking Status: Never smoker alcohol intake: never substance use type: does not use caffeine: Yes Type: coffee Number of servings: 2 Review of Systems (Anesthesia) ROS Narrative System reviewed and no additional complaints, except as documented.
--- NOTE | 2025-09-21 10:51 | PCM.HP.BLA ---
History and Physical Date of Admission: 09/21/25 MR#: [id number] Acct: [id number] Name: EDE DE LUNA Rep #: [id number] : 1955 Provider: Dr. Stanton Merlos MD Age/Sex: 69/M Location: [facility] [place] Status: Signed Intake Vital Signs 02/18/2515:16 08/06/2513:10 08/25/2510:40 Height 5 ft 4 in 5 ft 4 in 5 ft 4 in Weight: 165 lb BMI 28.3 Intake Visit Reasons: lumbar spine Chief Complaint: Lumbar spine pre op Accompanied by: Is patient in pain?: Yes Pain scale (1-10): 5 Allergies No Known Allergies Allergy (Verified 08/25/25 10:53) Medications ?Medication ?Instructions ?Recorded ?Confirmed ?Type aspirin 81 mg tablet,delayed 81 mg PO DAILY@0800 03/31/19 08/25/25 Rx release cranberry 500 mg capsule 500 mg PO DAILY 05/11/21 08/25/25 History ibuprofen 200 mg tablet 200 mg PO Q6H PRN pain 06/28/22 08/25/25 History finasteride 5 mg tablet 5 mg PO DAILY 11/08/23 08/25/25 History amlodipine 5 mg tablet 5 mg PO QDAY #90 tabs 11/20/24 08/25/25 Rx losartan 25 mg tablet 25 mg PO DAILY #90 TABLETS 01/15/25 08/25/25 Rx metoprolol tartrate 25 mg tablet 25 mg PO BID #180 TABLETS 01/15/25 08/25/25 Rx atorvastatin 20 mg tablet 20 mg PO QHS 08/19/25 08/25/25 History vit C 250 mg-vit E 90 mg-zinc 40 1 tab PO BID 08/19/25 08/25/25 History mg-copper 1 [id number] capsule ([facility]EDS-2) Have you fallen in the past year?: Yes PFSH Medical History Loss of hearing Wears glasses Prostate disease Back pain Injury of back Migraine headache Heartburn Non-smoker Leg cramps History of pain when walking Hypertension History of diverticulosis History of echocardiogram History of stress test Cardiology follow-up encounter Hx of chronic ear infection Hx of retinal detachment Hx of retinal detachment Degenerative scoliosis Central stenosis of spinal canal Neurogenic claudication Hyperlipidemia Presence of stent in coronary artery (~03/30/19) Hx of non-ST elevation myocardial infarction (NSTEMI) Atherosclerosis of [place] coronary artery of [place] heart without angina pectoris NSTEMI (non-ST elevated myocardial infarction) Obesity (BMI 30.0-34.9) Surgical History History of cardiac catheterization Hx of colonoscopy Hx of right cataract extraction Hx of eye surgery Presence of coronary angioplasty implant and graft (~03/30/19) Family History Father Valvular heart disease Congenital CAD (coronary artery disease) Stenting in late 60s Mother Cardiac pacemaker in situ Social History Smoking Status: Never smoker alcohol intake: never substance use type: does not use caffeine: Yes Type: coffee Number of servings: 2 HPI lumbar spine Details: This documentation accurately reflects the service provided and the decisions made by me, Dr. Stanton Merlos MD 08/25/25 1053. Part of today?s visit was documented by Palmira Morales MA, acting as scribe. EDE DE LUNA is a 69 year old M here today for Patient is here for spine pre op for L3-4 laminectomy. Patient states that his pain is a 5 today. The patient is a 69 year old individual presenting for pre-operative counseling for a planned lumbar laminectomy. The patient has multi-level arthritic spinal stenosis and reports persistent low back pain near the tailbone, which has not changed significantly since the last visit. The patient also experiences tingling down both legs into the calves and feet, which is becoming more symmetrical, whereas the left side was previously worse. Symptoms are exacerbated by walking up inclines, causing a foot to flop and requiring rest. The patient has a history of coronary artery disease and underwent a small stent placement in a secondary artery on June 13, 2019. Following the procedure, the patient was on a blood thinner for two years and now takes daily aspirin. A recent stress test was normal, the patient denies shortness of breath, and cardiology has cleared the patient for surgery. Past medical history is also significant for asthma, for which the patient takes medication. Past surgical history includes a tonsillectomy as a child. 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 The patient expresses nervousness about undergoing major surgery and general anesthesia for the first time. - Musculoskeletal: Reports persistent low back pain near the tailbone. - Neurological: Reports tingling down both legs to the calves and feet. - Reports foot drop when walking up an incline. - Cardiovascular: Denies shortness of breath. - Constitutional: Expresses nervousness about upcoming surgery and general anesthesia. Attestation: Documentation on this patient encounter was supported using ambient scribe technology/ voice AI technology. The patient consented to recording for the purpose of documenting the encounter. Provider reviewed content of the generated note prior to signature. 04/17/25: EDE DE LUNA is a 69 year old M here today for lumbar spine MRI review. Patient states he did have a fall a couple weeks ago when out doing yard work and he took a stumble. He states he felt like he pulled a muscle on the right hip and side and he took some ibuprofen and it has gotten better. He states he has had issues with this area when he was younger and he has seen a chiropractor for it in the past. He states he continues to have the numbness in bilateral lower legs and feet/toes. He denies any numbness above the knee. He states this has not gotten any better but also has not gotten worse. He states it never goes completely numb but he constantly has tingling and some numbness. He can walk 400 feet before he has to stop and stretch and bend. He does do stretching and exercises at home. He reports a change in his balance. He denies a history of diabetes. He does have a cardiac stent placed in 2019. He does not take a blood thinner. He denies any previous back surgery. He reports heaviness and weakness in his legs. He does take Aspirin 81mg daily. Ortho Exam General General: Yes no acute distress Neurologic: Yes alert and Yes oriented x3 Psychologic: Yes reasonable and appropriate Spine SPINE TESTING CERVICAL THORACIC LUMBAR Musculoskeletal Strength 0=absent - 5=normal Details: Neurological exam of the lower extremities shows 5x5 power. Normal sensations across all dermatomes. No hyperreflexia. No midline or paraspinal tenderness. Exam Narrative - Neurological: Lower extremity strength normal, no weakness noted. - Musculoskeletal: No tenderness on palpation of lumbar spine, no discomfort on extension. - Musculoskeletal: Patient able to stand and ambulate without significant difficulty. 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 - Imaging: MRI shows severe central stenosis at L3-4 with spondylolisthesis, degenerative scoliosis, and loss of disc height at multiple levels. - Imaging: X-rays reveal degenerative scoliosis and equal leg lengths with mild age-related changes. No dynamic instability on flexion-extension views. 1. Lumbar Spinal Stenosis The patient has symptomatic multi-level lumbar spinal stenosis, most severe at the L3-4 level, causing low back pain and bilateral lower extremity radiculopathy. The decision has been made to proceed with a limited surgery, an L3-4 laminectomy without fusion, to decompress the most affected area while minimizing surgical risk due to the patient's cardiac history. It was explained that this may not resolve all symptoms from other stenotic levels and carries a future risk of instability that could require fusion surgery. Plan: The patient will undergo a single-level L3-4 laminectomy. The patient will stop aspirin 7 days before surgery and should confirm with cardiology if a 9-day hold is acceptable. Postoperatively, the patient will be admitted overnight for observation. A comprehensive discussion of surgical risks was conducted, including but not limited to infection, bleeding/hematoma, nerve injury, persistent pain, instability, CSF leak, DVT/PE, and complications from general anesthesia. Postoperative restrictions will include no heavy lifting, bending, or twisting for 3 months, with an emphasis on early ambulation. Follow-up is scheduled at 2 weeks for suture/staple removal and again at 2.5-3 months post-surgery. - You are scheduled for a back surgery called an L3-4 laminectomy, which involves removing a small piece of bone to give your nerves more space. - Stop taking your aspirin as directed by your heart doctor before the surgery. - Wash your skin with the special soap as instructed before your surgery. - Drink the Ensure nutrition shakes as directed: two the day before surgery and one on the morning of surgery. - You will stay in the hospital overnight after the surgery for observation. - It is very important to get up and walk around as soon as you feel able to after surgery to help your recovery and prevent complications. - For three months after surgery, do not do any heavy lifting, bending at your back, or twisting. - You should not drive for about 10-14 days after surgery, or while you are taking strong pain medication. - You will have a follow-up appointment in 2 weeks to remove any stitches or bertrand. - Do not perform strenuous activities like shoveling snow during your recovery period. discussed all options including surgical and non surgical options. There are two surgical options, the first would be a laminectomy. The second option would be that with a fusion. I recommend L3-4 laminectomy decompression. Explained to him that further degeneration at L3-4 and instability may require the need for fusion in the future. Multilevel disc degeneration and foraminal stenosis multiple levels throughout the lumbar spine may require more extensive fusions in the future. Considering his cardiac comorbidities, it may be reasonable to limit the surgery to the most critically stenotic level at L3-4. Although he has spondylolisthesis at L3-4, there is no significant instability on flexion-extension with fusion views, however instability may develop after laminectomy. Surgery will be L3-4 laminectomy. Discussed this procedure in detail and explained the risks, benefits and alternatives. The risks include but are not limited to infection, bleeding, hematoma formation, need for further surgery, need nerve root injury, persistent pain, persistent numbness and weakness, foot drop, DVT, pulmonary embolism, pneumonia, atelectasis, cardiopulmonary event, iatrogenic instability, need for fusion in future, recurrent disc herniation. Answered all questions to the patient?s satisfaction. Patient understands and agrees to proceed with surgery. Consent was signed. Follow up two weeks post operatively or sooner if pain, swelling, numbness or associated symptoms, or concerns develop. All questions answered. Patient in agreement of plan.
[2025-09-21] MEDS: Lidocaine 1% (5 ml sdv) 5 ML Vial 10 ML IV (11:37)
[2025-09-21] MEDS: fentaNYL 100 MCG/2 ML Ampul IV (11:37)
--- NOTE | 2025-09-21 11:45 | RAD_ITS ---
PROCEDURE: LUMBAR SPINE 2 OR 3 VIEWS 09/21/2025 REASON FOR EXAM: LAMINECTOMY L3-4 TECHNIQUE: Procedure Code: RADSPLL Modality: DX Procedure: LUMBAR SPINE 2 OR 3 VIEWS FINDINGS: Multiple lateral spot fluoroscopic images of the lumbar spine depict localization of the posterior L3-4 interspace. There is diffuse spondylosis. RAD/Lumbar Spine 2 or 3 Views IMPRESSION: Intraoperative localization of the posterior L3-4 interspace. Reading Location: [facility]
[2025-09-21] MEDS: Cefazolin 1 GM/5 ML Vial 2 GM IV (11:58)
[2025-09-21] MEDS: TRANEXAMIC ACID 1,000 MG/10 ML ML 2000 MG IV (13:14)
--- NOTE | 2025-09-21 13:57 | PCM.OPRPT ---
Procedures Musculoskeletal [id number]: Other Procedure See Report Operative Report (Standard) Operative Information Date of Procedure: 09/21/25 Pre-Operative Diagnosis: L3-4 spondylolisthesis, stenosis with neurogenic claudication Post-Operative Diagnosis: Same Surgery/Procedure Performed: L3-4 laminectomy, partial facetectomy, decompression inlayer silver: Yes Board Operator: Ioana Levi Tasks completed by first grade teacher: Closing, Removing tissue, Hemostasis: Electrocautery and Retracting Type of Anesthesia: General RN Documented Start/Stop Times: Operation Date: 09/21/25 12:00 Case Time Into Pre-Op 09/21/25 09:59 Out of Pre-Op 09/21/25 11:29 Anesthesia Start 09/21/25 11:32 Into Room 09/21/25 11:32 Procedure Start 09/21/25 12:02 Procedure End 09/21/25 13:40 Anesthesia End 09/21/25 13:52 Out of Room 09/21/25 13:52 Procedure Start Time: 12:02 Procedure Stop Time: 13:40 Select all DRAINS/GRAFTS/IMPLANTS that apply: None Estimated Blood Loss: 30 cc Specimen collected: No Description of surgery: Preoperative diagnosis: L3-4 central lateral recess stenosis bilateral, neurogenic claudication Postoperative diagnosis: Same Name of procedure: L3-4 open laminectomy CPT 19696 Attending Surgeon: Dr. Stanton Merlos Estimated blood loss: 30 mL Anesthesia: General Indications: Patient is a 69-year-old gentleman who presented with low back pain and bilateral lower extremity numbness, with difficulty walking distances and neurogenic claudication. MRI revealed L3-4 severe central and bilateral lateral recess stenosis, L3-4 stable spondylolisthesis. All options of treatment were discussed which included continued nonoperative treatment measures like rest physical therapy, injections. After prolonged nonsurgical treatment, patient requested surgical intervention for laminectomy. All risks and benefits associated with the procedure were explained to the patient. The risks include but are not limited to infection, bleeding, injury to nerves and vessels, persistent paresthesia, incidental dural tear, recurrent disc herniation, spinal instability and need for fusion or other procedures in future, persistent pain, persistent weakness and numbness, etc. Procedure: The patient was identified in the preoperative holding suite using Unique patient identifiers. Skin was marked, consent was reviewed, and all questions were answered. The patient was then brought back to the operative room. A surgical timeout was performed to make sure correct procedure was being done on the correct patient and all operative room staff were on the same page. General endotracheal anesthesia was then given to the patient. The patient was then turned prone onto a Drew table over a James frame. The back was prepped and draped in usual fashion. Preoperative antibiotic was given. A final timeout was then again done just before starting the procedure. An 18-gauge spinal needle was inserted and level was identified. An incision was then carried out approximately 1 inch length in the midline. Bovie was utilized to dissect through the subcutaneous tissue up to the fascia. The fascia was bovied at the spinous process. Subperiosteal dissection was carried out along the both side of the spinous process and the lamina. This dissection was stopped at the level of the medial capsule of the facet joint. Lateral edge of the pars was also identified. A Kelly was then placed under the inferior edge of the lamina and a C-arm lateral view was repeated. The level was confirmed to be the L3-4 interspace. A Simmons retractor of appropriate depth was then placed to provide retraction throughout the remainder of the surgery. A bone cutter was used to remove the spinous process. Sono PET bone scalpel was then utilized to first create a score along the area of the laminectomy. Care was taken to preserve at least 1 cm of bone from the lateral border of the pars. The bone scalpel was then advanced to perform the cuts along this score. The lamina was then removed with the help of procedures. The flavum was utilized to protect the dura and superior articular process was carefully from the flavum. Partial medial facetectomy was performed to provide adequate lateral recess decompression. The complete flavum was eventually removed. Once decompression was adequately assessed with Kelly in both L3 and L4 foramina bilaterally, irrigation was done with normal saline. Valsalva maneuver up to 40 mmHg pressure sustained was then done by anesthesia for a few seconds to confirm no dural leak. Irrisept was kept in the wound for 1 minute and then rinsed with saline. Tisseel was sprayed over the laminectomy bed and surrounding tissues for hemostasis. A small piece of Gelfoam was then placed over the bony window. The Simmons retractor was then removed. And closure was done in layers, 1 Vicryl for the deep fascia, 2-0 Vicryl for subcutaneous tissue, and bertrand for the skin. The deep fascial layer was closed in a watertight fashion with interrupted 1 Vicryl augmented with Stratafix. 4 x 4 gauze was then placed over the wound covered with Tegaderm. The patient was then turned supine onto a hospital bed. The patient was extubated and taken to PACU in stable condition. The patient tolerated the procedure well and no complications occurred. Estimated blood loss for the entire surgery was 30 mL. No instrumentation was utilized in this case. No dural tear occurred in this case. I was present for the entirety of the case and performed the surgery myself. Director Non Profit Ioana Levi PA-C. My physician geriatric nurse assistant was a vital part of this case. They were important in appropriate retraction during the case, and protection of soft tissues during the procedure. Their intimate knowledge of the case and my steps aided in safe and expedient completion of the procedure as well as appropriate position of the patient during the surgery. They were also vital in assisting with closure under my direct supervision. Surgical Findings: See operative note Complications Complications: No
--- NOTE | 2025-09-21 14:59 | PCM.POST.ANE ---
Anesthesia: Postop Eval I Current Vital Signs Temperature: 97.0 F Pulse Rate: 58 Blood Pressure: 124/66 Respiratory Rate: 18 Pulse Ox: 100 Oxygen Delivery Method: Room Air Assessment Airway patent: Yes Spontaneous unlabored respirations: Yes Mental status: Awake nausea: No Vomiting: No Anesthesia Complication: No Fluid Hydration Crystalloid volume administer (ml): 1,500 Total IV fluid infused: 1,500 Progress Note Anesthesia document: Postop Eval 1 completed: Yes
--- NOTE | 2025-09-21 15:12 | POSTOPAN2_ITS ---
Anesthesia Postop Eval I Sum Postop Eval Completion status Anesthesia document: Postop Eval 1 completed: Yes Anesthesia Postop Eval I Summary Anesthesia Postop Eval I Summary: Anesthesia Postop Eval I: Assessment Summary Airway patent Yes 09/21/25 15:00 PAINTER AND BODY MECHANIC APPRENTICE.ACAR Spontaneous unlabored Yes 09/21/25 15:00 PAINTER AND BODY MECHANIC APPRENTICE.ACAR respirations Mental status Awake 09/21/25 15:00 PAINTER AND BODY MECHANIC APPRENTICE.ACAR nausea No 09/21/25 15:00 PAINTER AND BODY MECHANIC APPRENTICE.ACAR Vomiting No 09/21/25 15:00 PAINTER AND BODY MECHANIC APPRENTICE.ACAR Anesthesia Postop Eval I: Fluid Summary Crystalloid volume administer 1,500 09/21/25 15:00 PAINTER AND BODY MECHANIC APPRENTICE.ACAR (ml) Colloids volume administered ( ml) Blood Product volume administered (ml) Total IV fluid infused 1,500 09/21/25 15:00 PAINTER AND BODY MECHANIC APPRENTICE.ACAR Anesthesia Postop Eval I: Summary Notes Anesthesia Complication No 09/21/25 15:00 PAINTER AND BODY MECHANIC APPRENTICE.ACAR Anesthesia Complication Comment: Post-operative progress note Anesthesia: Postop Eval II Evaluation Mental status: Awake and Calm Pain Level: 1 nausea: No Vomiting: No Complications Anesthesia Complication: No
--- NOTE | 2025-09-21 15:12 | PCM.POSTANE2 ---
Anesthesia Postop Eval I Sum Postop Eval Completion status Anesthesia document: Postop Eval 1 completed: Yes Anesthesia Postop Eval I Summary Anesthesia Postop Eval I Summary: Anesthesia Postop Eval I: Assessment Summary Airway patent Yes 09/21/25 15:00 ORTHOPAEDIC NURSE.ACAR Spontaneous unlabored Yes 09/21/25 15:00 ORTHOPAEDIC NURSE.ACAR respirations Mental status Awake 09/21/25 15:00 ORTHOPAEDIC NURSE.ACAR nausea No 09/21/25 15:00 ORTHOPAEDIC NURSE.ACAR Vomiting No 09/21/25 15:00 ORTHOPAEDIC NURSE.ACAR Anesthesia Postop Eval I: Fluid Summary Crystalloid volume administer 1,500 09/21/25 15:00 ORTHOPAEDIC NURSE.ACAR (ml) Colloids volume administered ( ml) Blood Product volume administered (ml) Total IV fluid infused 1,500 09/21/25 15:00 ORTHOPAEDIC NURSE.ACAR Anesthesia Postop Eval I: Summary Notes Anesthesia Complication No 09/21/25 15:00 ORTHOPAEDIC NURSE.ACAR Anesthesia Complication Comment: Post-operative progress note Anesthesia: Postop Eval II Evaluation Mental status: Awake and Calm Pain Level: 1 nausea: No Vomiting: No Complications Anesthesia Complication: No
--- NOTE | 2025-09-21 21:05 | PCM.PN.HOSP ---
Reason for Visit Chief Complaint: LBP Subjective Subjective Patient is a 69-year-old white male who presented to [facility] on 09/21/2025 for elective L3-L4 laminectomy, partial facetectomy and decompression due to spondylolisthesis and stenosis with neurogenic claudication at the same level. Patient has a past medical history of peripheral vascular disease, coronary disease with previous NSTEMI, hyperlipidemia, hypertension, and BPH. We have been consulted postoperatively for medical management of his chronic medical issues. Patient was seen on the medical floor postoperatively. Patient states he is feeling well with minimal discomfort. Urinating without difficulty. Passing some flatus. Tolerating diet without any nausea. Objective Data Objective Data Vital Signs: Vital Signs Temp Pulse Resp BP Pulse Ox O2 Del Method O2 Flow Rate 98.2 F 88 18 128/59 H 97 Room Air 4 09/21/25 18:53 09/21/25 18:53 09/21/25 18:53 09/21/25 18:53 09/21/25 18:53 09/21/25 18:53 09/21/25 15:01 Oxygen Flow Rate (L/min) 4 Oxygen Delivery Method Room Air Weight: 75 kg Body Mass Index (BMI) 29.2 Intake & Output: Intake and Output for Last 24 Hours 09/19/25 09/20/25 09/21/25 23:59 23:59 23:59 Intake Total 1322 / 1322 Output Total 20 / 20 Balance 1302 / 1302 Lab / Micro Data 08/25/25 09:44 08/25/25 09:44 Labs: Laboratory Results - last 24 hr 09/21/25 10:24: POC Glucose 127 H Micro: Microbiology 08/25/25 09:44 Swab (Method) Nasal Screen MRSA/MSSA - Final Radiography Diagnostic Testing: Radiology Impression Lumbar Spine X-Ray 09/21/25 11:45 IMPRESSION: Intraoperative localization of the posterior L3-4 interspace. Reading Location: [facility] Physical Exam Const alert, oriented x3, no apparent distress and well nourished Constitutional Narrative: Overweight, older, white male, sitting up in bed watching the gBox game, appears comfortable, nontoxic appearing, appears comfortable HEENT head/scalp atraumatic and moist oral mucous membranes HEENT Narrative: Mallampati 2, no thrush Head and Scalp: normocephalic Resp normal respiratory effort, no retractions, no use of accessory muscles and clear to auscultation bilaterally Auscultation: Negative for crackles, rhonchi or wheezes Cardio regular rate, regular rhythm, S1 normal heart sound, S2 normal heart sound, no murmurs, no rub, no gallops and no clicks GI GI Narrative: Bowel sounds are slightly hypoactive, abdomen is nondistended and soft with no tenderness Extremity no clubbing, cyanosis or edema Extremity Narrative: 2+ pedal pulses, SCDs in place Neuro moves all extremities and no focal motor deficits Speech: speech normal Psych affect normal Psych Narrative: Very pleasant, interacts appropriately, eye contact is good Assessment & Plan Assessment/Plan (1) Degenerative disc disease (DDD) of lumbar region with discogenic back pain and leg pain: PLAN: Plan LBP 2/2 DDD with Neurogenic Claudication - POD 0 L3-4 laminectomy, partial facetectomy, decompression - PT/OT per primary - Pain per primary - Continue scheduled bowel regimen CAD/essential hypertension/hyperlipidemia/stage I diastolic dysfunction - PTCA/BETTINA to prox Diag #1 03/30/19 - Continue home losartan - Continue home metoprolol - Continue home statin - Continue home amlodipine - Restart home aspirin when okay with orthopedic surgery Peripheral vascular disease - Follows with vascular surgery - ongoing outpatient follow-up - Restart aspirin when appropriate per Ortho BPH with obstruction - Continue home finasteride - Monitor for urinary retention postoperatively - Anticipate high risk - Will start Flomax while patient hospitalized DVT prophylaxis - per primary Charges/Coding Visit Charges Inpatient E&M: 77072 Subs Hosp L2
[2025-09-21] MEDS: Cefazolin 2 GM in 0.9% Normal Saline (100mL Bag) 100 ML IV (21:13)
[2025-09-21] MEDS: 0.9% Normal Saline (250mL Bag) 250 ML 15 ML IV (21:14)
[2025-09-21] MEDS: 0.9% Saline Lock 10 ML Syringe IV (21:14)
[2025-09-21] MEDS: Senna/Docusate Sodium 1 Tablet 2 TABLET PO (21:26)
[2025-09-22 01:04] VITALS: BP 127/76; PULSE 84; RESP 16; TEMP 36.9; O2SAT 97
[2025-09-22] MEDS: Cefazolin 2 GM in 0.9% Normal Saline (100mL Bag) 100 ML IV (04:29)
[2025-09-22 04:35] VITALS: BP 138/78; PULSE 78; RESP 16; TEMP 36.8; O2SAT 96
[2025-09-22 04:42] LABS: Hematocrit 38.9 % (40-54); Hemoglobin 12.8 g/dL (13.0-16.5); Immature Granulocytes Count 0.100 X10^3/uL (0.0-0.0); Mean Corp Hgb Conc 32.9 g/dL (32-36); Mean Corpuscular Volume 86.6 fL (80-94); Mean Platelet Vol. 9.2 fl (6.2-12.0); NRBC Flagged by Analyzer 0 % (0-5); Platelet Count 164 K/mm3 (150-450); RBC Distribution Width CV 12.6 % (11.6-14.6); RBC Distribution Width SD 40.1 fl (35.1-43.9); Red Blood Count 4.49 M/mm3 (4.6-6.2); White Blood Count 17.8 K/mm3 (4.4-11.0)
[2025-09-22 05:06] LABS: Anion Gap 9 (7-18); BUN 17 mg/dL (4-19); BUN/Creat Ratio 17.3 RATIO (10-20); Calcium,Total 9.2 mg/dL (7.6-11.0); Carbon Dioxide 23.2 mmol/L (20.0-29.0); Chloride 106 mmol/L (96-106); Estimated Creatinine Clearance 63.37 ml/min (50-250); Glucose 111 mg/dL (70-99); Potassium 4.2 mmol/L (3.5-5.1)
[2025-09-22] MEDS: 0.9% Saline Lock 10 ML Syringe IV (05:29)
--- NOTE | 2025-09-22 08:39 | PCM.PN.ORT ---
Subjective Subjective Postop day 1 L3-4 laminectomy. The patient was seen at the bedside today. The patient has been comfortable with his pain well-controlled. Patient has been up and walking with a walker. Says that he does have some pain over the incision site when he is laying flat on his back however this is manageable. The patient also mentions that he once felt a pop in his lower back over the night, this did not result in any pain however he was worried about the sound. Patient says that the nurse looked at the incision and said that all of the bertrand were still intact with no issues. He continues to not have any pain. Objective Data Objective Data Vital Signs: Vital Signs Temp Pulse Resp BP Pulse Ox O2 Del Method O2 Flow Rate 98.2 F 78 16 138/78 H 96 Room Air 4 09/22/25 04:35 09/22/25 04:35 09/22/25 04:35 09/22/25 04:35 09/22/25 04:35 09/22/25 04:35 09/21/25 15:01 Oxygen Flow Rate (L/min) 4 Oxygen Delivery Method Room Air Weight: 165 lb 5.547 oz Body Mass Index (BMI) 29.2 Intake & Output: Intake and Output for Last 24 Hours 09/20/25 09/21/25 09/22/25 23:59 23:59 23:59 Intake Total 1448.5 / 1798.5 460 / 460 Output Total 20 / 20 Balance 1428.5 / 1778.5 460 / 460 Lab / Micro Data 09/22/25 04:19 09/22/25 04:19 Labs: Laboratory Results - last 24 hr 09/21/25 10:24: POC Glucose 127 H 09/22/25 04:19: WBC 17.8 H, RBC 4.49 L, Hgb 12.8 L, Hct 38.9 L, MCV 86.6, MCH 28.5, MCHC 32.9, RDW Std Deviation 40.1, RDW Coeff of Awilda 12.6, Plt Count 164, MPV 9.2, Immature Gran % (Auto) 0.600, Neut % (Auto) 87.0 H, Lymph % (Auto) 7.1 L, [place] % (Auto) 5.1, Eos % (Auto) 0.1, Baso % (Auto) 0.1, Absolute Neuts (auto) 15.5 H, Absolute Lymphs (auto) 1.26, Nucleated RBC % 0, Sodium 138, Potassium 4.2, Chloride 106, Carbon Dioxide 23.2, Anion Gap 9, BUN 17, Creatinine 0.97, Estim Creat Clear Calc 63.37, Est GFR (MDRD) Non-Af 83, BUN/Creatinine Ratio 17.3, Glucose 111 H, Calcium 9.2 Micro: Microbiology 08/25/25 09:44 Swab (Method) Nasal Screen MRSA/MSSA - Final Radiography Diagnostic Testing: Radiology Impression Lumbar Spine X-Ray 09/21/25 11:45 IMPRESSION: Intraoperative localization of the posterior L3-4 interspace. Reading Location: [facility] Physical Exam Narrative Physical examination of the lower extremity shows 5X5 power. Normal sensation across all dermatomes. Const alert, oriented x3 and no apparent distress Assessment & Plan Assessment/Plan (1) Status post laminectomy: PLAN: Plan Postop day 1 L3-4 laminectomy. PT/OT on board. Plan for home discharge later today pending therapy. Home medications include hydrocodone?acetaminophen, meloxicam, methocarbamol, senna. OARRS reviewed. Reviewed and educated on the use of the incentive spirometer. Reviewed restrictions of no bending, lifting, twisting until 3 months postop. He will follow-up with us in 2 weeks in the clinic. Sooner if needed for any issues. Patient is in agreement to the plan.
[2025-09-22 09:33] VITALS: BP 126/72; PULSE 84; RESP 15; TEMP 36.7; O2SAT 100
[2025-09-22 09:49] VITALS: PULSE 84
--- NOTE | 2025-09-22 12:07 | CASEMGMT ---
Social Work- SW met with pt to complete SDOH assessment. Pt reports no concerns and reports that SDOH triggered in error. Pt denies any needs. ROCIO Hein
--- NOTE | 2025-09-22 12:48 | PN_ITS ---
Subjective Subjective Patient seen and examined with his nurse by his bedside. HE complained of some cracking sensation in his back. Review of systems is otherwise negative. Pain is fairly well controlled. Objective Data Objective Data Vital Signs: Vital Signs Temp Pulse Resp BP Pulse Ox O2 Del Method O2 Flow Rate 98.0 F 84 15 126/72 H 100 Room Air 4 09/22/25 09:33 09/22/25 09:49 09/22/25 09:33 09/22/25 09:33 09/22/25 09:33 09/22/25 09:33 09/21/25 15:01 Oxygen Flow Rate (L/min) 4 Oxygen Delivery Method Room Air Weight: 165 lb 5.547 oz Body Mass Index (BMI) 29.2 Intake & Output: Intake and Output for Last 24 Hours 09/20/25 09/21/25 09/22/25 23:59 23:59 23:59 Intake Total 1448.5 / 1798.5 460 / 460 Output Total 20 / 20 Balance 1428.5 / 1778.5 460 / 460 Lab / Micro Data 09/22/25 04:19 09/22/25 04:19 Labs: Laboratory Results - last 24 hr 09/22/25 04:19: WBC 17.8 H, RBC 4.49 L, Hgb 12.8 L, Hct 38.9 L, MCV 86.6, MCH 28.5, MCHC 32.9, RDW Std Deviation 40.1, RDW Coeff of Awilda 12.6, Plt Count 164, MPV 9.2, Immature Gran % (Auto) 0.600, Neut % (Auto) 87.0 H, Lymph % (Auto) 7.1 L, [place] % (Auto) 5.1, Eos % (Auto) 0.1, Baso % (Auto) 0.1, Absolute Neuts (auto) 15.5 H, Absolute Lymphs (auto) 1.26, Nucleated RBC % 0, Sodium 138, Potassium 4.2, Chloride 106, Carbon Dioxide 23.2, Anion Gap 9, BUN 17, Creatinine 0.97, Estim Creat Clear Calc 63.37, Est GFR (MDRD) Non-Af 83, BUN/Creatinine Ratio 17.3, Glucose 111 H, Calcium 9.2 Micro: Microbiology 08/25/25 09:44 Swab (Method) Nasal Screen MRSA/MSSA - Final Radiography Diagnostic Testing: Radiology Impression Lumbar Spine X-Ray 09/21/25 11:45 IMPRESSION: Intraoperative localization of the posterior L3-4 interspace. Reading Location: [facility] Physical Exam Const alert, oriented x3 and no apparent distress General Appearance: cooperative HEENT normocephalic, head/scalp atraumatic, moist oral mucous membranes and oropharynx normal Eyes EOMs intact bilaterally Neck no lymphadenopathy and supple Lymph Lymphatic: no lymphedema noted Resp normal respiratory effort, normal air movement and clear to auscultation bilaterally Cardio regular rate, regular rhythm, S1 normal heart sound, S2 normal heart sound and no murmurs GI normal to inspection, nondistended, normoactive bowel sounds, soft to palpation and non-tender Extremity normal capillary refill, no clubbing, cyanosis or edema and no calf tenderness Skin Skin Narrative: intact dressing over surgical site on lower back Neuro no focal motor deficits and no sensory deficits noted Motor Exam: strength 5/5 throughout Psych thought process normal, cooperative and affect normal Appearance: appropriate Assessment & Plan Assessment/Plan (1) Status post laminectomy: (2) Dyslipidemia: (3) Hypertension: QUALIFIERS: Hypertension type: primary hypertension Qualified Code(s): I10 - Essential (primary) hypertension PLAN: Plan #Lumbar stenosis with spondylolishetesis and neuroclaudication * S/p elective L3-L4 laminectomy and partial facetectomy and decompression * Today's postop day 1. Patient complains of some cracking in his back. Pain however is well-controlled. * Management as per primary service spine surgery. PT OT on board. Fall precautions. * Incentive spirometry. * #History of CAD: S/p stents in 2019. On statin and amlodipine as well as aspirin and statin and metoprolol. To resume aspirin when okay with spine surgery #History of peripheral vascular disease: Follow-up with vascular surgery on outpatient basis. Resume aspirin when okay with spine surgery #Hyperlipidemia: On statin #Benign essential hypertension: On metoprolol and losartan #BPH with obstruction: On finasteride DVT prophylaxis: As per primary service. Charges/Coding Visit Charges Inpatient E&M: 82473 Subs Hosp L2
--- NOTE | 2025-09-22 12:59 | DCINST_ITS ---
Discharge Instructions DC O2, CPAP, BIPAP needs Home O2 Discharge instructions: No Follow Up Care Test Results: Test results from this visit will be discussed in further detail at your follow- up appointment, if applicable. Discharge Plan Admission Admit Date/Time: 09/21/25 13:52 Attending Provider: Stanton Merlos Primary Care Provider: Devyn Moe Consulting Providers: Jaja Hilliard Instructions Patient Instructions: Laminectomy Dc Additional Instructions / Restrictions: Keep Tegaderm and gauze clean and dry. If Tegaderm is intact, okay to shower. After 5 days remove Tegaderm and gauze and cover with a Band-Aid. Replace Band- Aid daily thereafter. No bending lifting or twisting. Follow-up in clinic in 2 weeks. Discharge Orders/Prescriptions Prescriptions: New acetaminophen 500 mg Tablet 500 mg PO Q8 Qty: 30 0RF hydrocodone-acetaminophen 5-325 mg Tablet 1 tab PO Q6H PRN (Reason: pain) 7 Days Qty: 28 0RF meloxicam 15 mg Tablet 15 mg PO DAILY Qty: 30 0RF methocarbamol 500 mg Tablet 750 mg PO TID PRN (Reason: Pain/spasms) Qty: 30 0RF sennosides-docusate sodium [Stimulant Laxative Plus] 8.6-50 mg Tablet 2 tab PO BID PRN (Reason: constipation) Qty: 14 0RF Continued cranberry 500 mg capsule 500 mg PO DAILY Rx Instructions: administer with meals finasteride 5 mg tablet 5 mg PO DAILY amlodipine 5 mg tablet 5 mg PO QDAY Qty: 90 3RF Eye Health AREDS-2 250-90-40-1 mg capsule 1 tab PO BID atorvastatin 20 mg tablet 20 mg PO QHS metoprolol tartrate 25 mg tablet 25 mg PO BID Qty: 180 3RF losartan 25 mg tablet 25 mg PO DAILY Qty: 90 3RF Held aspirin 81 MG tablet 81 mg PO DAILY@0800 0RF Hold Instructions: Resume on 09/23/25. Discontinued ibuprofen 200 mg tablet 200 mg PO Q6H PRN (Reason: pain) Referrals / Follow Up: Devyn Moe DO [Primary Care Provider, Internal Medicine] Disposition Disposition (needs filled in before D/C Order can be placed): Home, Self Care
--- NOTE | 2025-09-22 13:07 | CASEMGMT ---
Spoke with ortho pt to be dc'd today. No therapy recommended.
== END 2025-09-22 14:23 | disposition home or self-care (01) ==
LOC: SDC 16:30 → MS3 16:30
PROVIDERS: Student in an Organized Health Care Education/Training Program; Admitting Provider Orthopaedic Surgery Orthopaedic Surgery of the Spine; PCP Family Medicine; Referring Provider Orthopaedic Surgery Orthopaedic Surgery of the Spine; Visit Provider Orthopaedic Surgery Orthopaedic Surgery of the Spine
PROC: (CPT 63030; principal; 2025-09-21 11:30)
DX: M48.062 Spinal stenosis, lumbar region with neurogenic claudication (principal); M43.16 Spondylolisthesis, lumbar region; I10 Essential (primary) hypertension; M51.360 Other intervertebral disc degeneration, lumbar region with discogenic back pain only; I25.2 Old myocardial infarction; Z79.899 Other long term (current) drug therapy; I25.10 Atherosclerotic heart disease of native coronary artery without angina pectoris; Z79.82 Long term (current) use of aspirin; E78.5 Hyperlipidemia, unspecified; R26.2 Difficulty in walking, not elsewhere classified; M41.9 Scoliosis, unspecified; N40.1 Benign prostatic hyperplasia with lower urinary tract symptoms; N13.8 Other obstructive and reflux uropathy; I73.9 Peripheral vascular disease, unspecified
CPT/HCPCS: 63047; 00630; 36415; 72100; 76000; 80048; 82962; 83036; 83735; 85025; 86850; 86900; 86901; 87081; 93005; 94668; 96365; 96366; 96375; 96376; 97162; 97165; 99221; A4216; G0378; J2405; J3475